=== PATIENT | male | born 1965 | race Caucasian/White ===

== ENCOUNTER 2022-10-17 05:42 | Observation (INO) | payer OTHER ==
--- OUTSIDE RECORDS SUMMARY | 2022-10-17 05:48 | XMS REPORT | Continuity of Care Document ---
:1965 Author Organization [facility] t Address [address] [place] [address] Care Team Providers Name Role Phone Joe Calloway Attending Clinician Unavailable ANASTACIO HAYES Attending Clinician Unavailable Shoaib Austin Attending Clinician Unavailable Emilio Durán Attending Clinician Shoaib Austin Admitting Clinician Unavailable Physician, No Primary or Family Admitting Clinician [facility] Payers Payer Name Policy Type Policy Number Effective Date Expiration Date S ource Problems Condition Condition Condition Status Onset Resolution Last Treating Co mments Source Name Details Category Date Date Treatment Clinician Date DX: DX: Diagnosis Active 2019-07-21 Mem oria ORCHIALGIA ORCHIALGIA 07-16 07:33:00 l /KIDNEY /KIDNEY 00:00: Zane STONE STONE 00 Active 07/16/2019 [facility] ACUTE ACUTE Diagnosis Active 2017-112018-10-16 Mem oria CHEST PAIN CHEST PAIN 12-13 23:35:00 l Active 00:00: Zane 10/13/2018 00 [facility] CHEST PAIN CHEST Diagnosis Active 2017-112018-10-13 Memoria PAIN 12-13 05:00:00 l Active 00:00: Zane 10/13/2018 00 [facility] INTRACTABL INTRACTAB Diagnosis Active 2017-01-31 Memoria E BACK LE BACK 01-30 13:34:00 l PAIN PAIN 00:00: Zane Active 00 01/30/2017 [facility] LOWER BACK LOWER Diagnosis Active 2017-01-30 Memoria PAIN BACK PAIN 01-30 12:42:00 l Active 00:00: Zane 01/30/2017 00 [facility] INGUINAL INGUINAL Condition Active 2015-02-25 Memoria HERNIA, HERNIA, 02-04 09:35:09 l RIGHT RIGHT 00:00: [place] Active 00 02/04/2015 Condition 02/25/2015 [facility] 550.90 550.90 Diagnosis Active 2015-02-18 Me moria Active 02-04 14:43:00 l 02/04/2015 00:00: Abdulkadir carrasco [address] Morbid Morbid Problem 2019-05-03 Mervin leroy (severe) (severe) 13:54:32 l obesity obesity [place] due to due to excess excess calories calories 05/03/2019 [facility] Hyperlipid Problem 2019-05-03 M emoria kan, Hyperlipid 13:54:32 l unspecifie Abdulkadir omer d unspecifie d 05/03/2019 [facility] Alcohol Alcohol Problem 2019-05-03 In moria abuse, abuse, 13:54:32 l uncomplica uncomplica He dmitriy maico maico 05/03/2019 [facility] Nicotine Nicotine Problem 2019-05-03 Memoria dependence dependence 13:54:32 l , , Zane unspecifie unspecifie d, d, uncomplica uncomplica maico maico 05/03/2019 [facility] Sleep Sleep Problem 2019-05-03 Mervin leroy apnea, apnea, 13:54:32 l unspecifie unspecifie He dmitriy d d 05/03/2019 [facility] Other Other Problem 2019-05-03 Memor ia chronic chronic 13:54:32 l pain pain Zane 05/03/2019 [facility] Essential Essential Problem 2019-05-03 Memoria (primary) (primary) 13:54:32 l hypertensi hypertensi He rasheedaann on on 05/03/2019 [facility] Unspecifie Unspecifi Problem 2019-05-03 Memoria d asthma, ed asthma, 13:54:32 l uncomplica uncomplica He dmitriy maico maico 05/03/2019 [facility] Gastro-eso Gastro-es Problem 2019-05-03 Memoria phageal ophageal 13:54:32 l reflux reflux Zane disease disease without without esophagiti esophagiti s s 05/03/2019 [facility] Diverticul Diverticu Problem 2019-05-03 Memoria osis of losis of 13:54:32 l intestine, intestine, He rmann part part unspecifie unspecifie d, without d, without perforatio perforatio n or n or abscess abscess without without bleeding bleeding 05/03/2019 [facility] Diverticul Diverticu Problem Resolve 2019-08-02 Memoria itis litis d 21:20:55 l (disorder) (disorder) He rmann Resolved Problem 08/02/2019 [facility] Gastroesop Gastroeso Problem Resolve 2019-08-02 Memoria hageal phageal d 21:20:55 l reflux reflux Zane disease disease (disorder) (disorder) Resolved Problem 08/02/2019 [facility] Asthma Asthma Problem Resolve 2019-08-02 Mem oria (disorder) (disorder) d 21:20:55 l Resolved [place] Problem 08/02/2019 [facility] Hypertensi Problem Resolve 2019-08-02 Memoria ve Hypertensi d 21:20:55 l disorder, ve [place] systemic disorder, arterial systemic (disorder) arterial (disorder) Resolved Problem 08/02/2019 [facility] Sleep Sleep Problem Resolve 2019-08-02 Mervin leroy apnea apnea d 21:20:55 l (finding) (finding) Herm marlon Resolved Problem 08/02/2019 [facility] Seasonal Seasonal Problem Active 2019-08-02 Memoria allergic allergic 21:20:55 l rhinitis rhinitis Abdulkadir n (disorder) (disorder) Active Problem 08/02/2019 [facility] DORSALGIA, DORSALGIA Diagnosis Active 2017-01-31 Memoria UNSPECIFIE , 13:34:00 l D UNSPECIFIE Abdulkadir n D Active [facility] CHEST CHEST Diagnosis Active 2018-10-16 Mem oria PAIN, PAIN, 23:35:00 l UNSPECIFIE UNSPECIFIE He rmann D D Active [facility] History of Past Illness Condition Condition Condition Status Onset Resolution Last Treating Co mments Source Name Details Category Date Date Treatment Clinician Date Unstable Unstable Problem 2017-2019-05-03 2019-05-03 Memoria angina angina 2-13 13:54:32 13:54:32 l 10/30/2018 04:10: Abdulkadir carrasco 34 [address] [facility] Allergies, Adverse Reactions, Alerts Allergy Allergy Status Severity Reaction(s) Onset Inactive Treating Comm ents Source Name Type Date Date Clinician No Known DA Active U 2019-11 [facility] [place] [facility] No Known DA Active U 2019-11 [facility] [place] [facility] No Known DA Active U 2007- [facility] 2-18 [place] Allergie 00:00: [facility]ope [facility] No Known DA Active U 2001- [facility] 2-05 [place] [facility] 00:00: [facility]ope [facility]ces [facility] Social History Social Habit Start Date Stop Date Quantity Comments Source Social History 2015-02-11 2015-02-11 [facility] Juan Diego shamika 20:13:45 20:13:45 Medications Ordered Filled Start Stop Current Ordering Indication Dosage Frequency Signature Comments Components Source Medication Medication Date Date Medication? Clinician (SIG) Name Name Acetaminoph No 1 - 2 tab, Memoria en 300 MG / 9-11 PO, Q4H, l Codeine 01:07: PRN Pain, Johanna nn Phosphate 00 X 4 day, # 30 MG Oral 36 tab, 0 Tablet Refill(s), [Tylenol other with Codeine #3] Acetaminoph No 1 - 2 tab, Memoria en 300 MG / 9-11 PO, Q4H, l Codeine 01:07: PRN Pain, Johanna nn Phosphate 00 X 4 day, # 30 MG Oral 36 tab, 0 Tablet Refill(s), [Tylenol other with Codeine #3] Levofloxaci Yes 500 mg = 1 Memoria n 500 MG 9-04 tab, PO, l Oral Tablet 20:49: Q24H, X 21 [place] [Levaquin] 00 day, # 21 tab, 0 Refill(s), Pharmacy: [facility] #[id number] Tamsulosin Yes 0.4 mg = 1 M emoria hydrochlori 9-04 cap, PO, l de 0.4 MG 20:49: Daily, # Herm marlon Oral 00 30 cap, 6 Capsule Refill(s), [Flomax] Pharmacy: [facility] #[id number] Sulfamethox 2019-0 Yes 80 mg =, Me moria azole 800 9-04 PO, Q12H, l MG / 20:49: # 42 tab, [place] Trimethopri 00 0 m 160 MG Refill(s), Oral Tablet Pharmacy: [facility] #[id number] Levofloxaci 2019-0 Yes 500 mg = 1 Memoria n 500 MG 9-04 tab, PO, l Oral Tablet 20:49: Q24H, X 21 Zane [Levaquin] 00 day, # 21 tab, 0 Refill(s), Pharmacy: [facility] #[id number] Tamsulosin 2019-0 Yes 0.4 mg = 1 M emoria hydrochlori 9-04 cap, PO, l de 0.4 MG 20:49: Daily, # Herm marlon Oral 00 30 cap, 6 Capsule Refill(s), [Flomax] Pharmacy: [facility] #[id number] Sulfamethox 2019-0 Yes 80 mg =, Me moria azole 800 9-04 PO, Q12H, l MG / 20:49: # 42 tab, [place] Trimethopri 00 0 m 160 MG Refill(s), Oral Tablet Pharmacy: [facility] #[id number] Rocephin 2019-0 No 1,000 mg, Mervin leroy 07-10 Route: IM, l 18:33: ONCE, Dosing Weight 135.909, kg, Start date: 07/10/19 13:33:00 CDT, Stop date: 07/10/19 13:33:00 CDT Ketorolac 2019-0 No 60 mg, Memori a 07-10 Route: IM, l 18:33: Drug form: [place] 00 INJ, ONCE, Dosing Weight 135.909, kg, Start date: 07/10/19 13:33:00 CDT, Stop date: 07/10/19 13:33:00 CDT Rocephin 2019-0 No 1,000 mg, Mervin leroy 07-10 Route: IM, l 18:33: ONCE, Dosing Weight 135.909, kg, Start date: 07/10/19 13:33:00 CDT, Stop date: 07/10/19 13:33:00 CDT Ketorolac 2019-0 No 60 mg, Memori a 8-23 Route: IM, l 18:33: Drug form: [place] 00 INJ, ONCE, Dosing Weight 135.909, kg, Start date: 07/10/19 13:33:00 CDT, Stop date: 07/10/19 13:33:00 CDT cefdinir 2019-0 Yes 300 mg = 1 Mem oria 300 MG Oral 8-23 cap, PO, l Capsule 17:39: Q12H, X 21 Herm marlon [Omnicef] 00 day, # 42 cap, 0 Refill(s), Pharmacy: [facility] #[id number] cefdinir 2019-0 Yes 300 mg = 1 Mem oria 300 MG Oral 8-23 cap, PO, l Capsule 17:39: Q12H, X 21 Herm marlon [Omnicef] 00 day, # 42 cap, 0 Refill(s), Pharmacy: [facility] #[id number] Saline 2017-11 No Notes: Memoria Flush 0.9% 1-28 (Same as: l 03:00: BD [place] 00 Posiflush) Saline 2017-11 No Notes: Memoria Flush 0.9% 1-28 (Same as: l 03:00: BD [place] 00 Posiflush) Saline 2017-11 No Notes: Memoria Flush 0.9% -27 (Same as: l 21:02: BD [place] 00 Posiflush) Ondansetron 2017-11 No Notes: Mervin leroy - (Same as: l 21:02: Zofran) MEDICATION WASTE Product Size: 4 mg Product Wasted: ___ mg acetaminoph 2017-11 No Notes: Do M emoria en-codeine - not exceed l #3 21:02: 4gm/day of Zane 00 acetaminop hen. (Same as: Tylenol with Codeine # 3) Sodium 2017-11 No 750 mL, Memoria Chloride 12-14 Rate: 75 l 0.9% IV 750 21:02: ml/hr, Herm marlon mL 00 Infuse over: 10 hr, Route: IV, Dosing Weight 135.909 kg, Total Volume: 750, Start date: 10/14/18 15:02:00 TOOLING ENGINEER, Duration: 10 hr, Stop date: 10/15/18 1:01:00 TOOLING ENGINEER, 2.59, m2 Saline 2017-11 No Notes: Memoria Flush 0.9% 12-14 (Same as: l 21:02: BD Posiflush) Ondansetron 2017-11 No Notes: Mervin leroy 12-14 (Same as: l 21:02: Zofran) MEDICATION WASTE Product Size: 4 mg Product Wasted: ___ mg acetaminoph 2017-11 No Notes: Do M emoria en-codeine 12-14 not exceed l #3 21:02: 4gm/day of acetaminop hen. (Same as: Tylenol with Codeine # 3) Sodium 2017-11 No 750 mL, Memoria Chloride 12-14 Rate: 75 l 0.9% IV 750 21:02: ml/hr, Infuse over: 10 hr, Route: IV, Dosing Weight 135.909 kg, Total Volume: 750, Start date: 10/14/18 15:02:00 TOOLING ENGINEER, Duration: 10 hr, Stop date: 10/15/18 1:01:00 TOOLING ENGINEER, 2.59, m2 Benicar 2017-11 No 20 mg, 1 Memori a 12-14 tab, l 15:00: Route: PO, Drug form: TAB, Daily, Start date: 10/14/18 9:00:00 TOOLING ENGINEER, Duration: 30 day, Stop date: 11/12/18 9:00:00 TOOLING ENGINEER amLODIPine 2017-11 No Notes: Memor ia 12-14 (Same as: l 15:00: Norvasc) Prilosec 2017-11 No 40 mg, Memoria 12-14 Route: PO, l 15:00: Daily, Dosing Weight 135.909, kg, Start date: 10/14/18 9:00:00 TOOLING ENGINEER, Duration: 30 day, Stop date: 11/12/18 9:00:00 TOOLING ENGINEER Aspirin 81 2017-11 No Notes: Memor ia MG Chewable 12-14 Take with l Tablet 15:00: food. Amlodipine 2017-11 No 1 tab, Memor ia 10 MG / 12-14 Route: PO, l Olmesartan 15:00: Drug Form: H ermann medoxomil 00 TAB, 20 MG Oral Dosing Tablet Weight [George 135.909, 10/20] kg, Daily, Start date: 10/14/18 9:00:00 TOOLING ENGINEER, Duration: 30 day, Stop date: 11/12/18 9:00:00 TOOLING ENGINEER Benicar 2017-11 No 20 mg, 1 Memori a - tab, l 15:00: Route: PO, Drug form: TAB, Daily, Start date: 10/14/18 9:00:00 TOOLING ENGINEER, Duration: 30 day, Stop date: 11/12/18 9:00:00 TOOLING ENGINEER amLODIPine 2017-11 No Notes: Memor ia 12-14 (Same as: l 15:00: Norvasc) Prilosec 2017-11 No 40 mg, Memoria 12-14 Route: PO, l 15:00: Daily, Dosing Weight 135.909, kg, Start date: 10/14/18 9:00:00 TOOLING ENGINEER, Duration: 30 day, Stop date: 11/12/18 9:00:00 TOOLING ENGINEER Aspirin 81 2017-11 No Notes: Memor ia MG Chewable 12-14 Take with l Tablet 15:00: food. Amlodipine 2017-11 No 1 tab, Memor ia 10 MG / 12-14 Route: PO, l Olmesartan 15:00: Drug Form: H ermann medoxomil 00 TAB, 20 MG Oral Dosing Tablet Weight [George 135.909, 10/20] kg, Daily, Start date: 10/14/18 9:00:00 TOOLING ENGINEER, Duration: 30 day, Stop date: 11/12/18 9:00:00 TOOLING ENGINEER Zyrtec 2017-11 No Notes: Memoria - (Same As: l 05:26: Zyrtec) Zyrtec 2017-11 No Notes: Memoria - (Same As: l 05:26: Zyrtec) Zyrtec 2017-11 Yes 10 mg, Memoria 1-27 Daily, 0 l 04:54: Refill(s) Zyrtec 2017-11 Yes 10 mg, Memoria 1-27 Daily, 0 l 04:54: Refill(s) Zane 00 Protonix 2017-11 No Notes: Memoria 1-26 Tablet l 20:00: should not [place] 00 be chewed or crushed. (Same as: Protonix) Protonix 2017-11 No Notes: Memoria 1-26 Tablet l 20:00: should not Z[place] 00 be chewed or crushed. (Same as: Protonix) Aspirin 81 2017-11 No Notes: Do Me moria MG Enteric - not crush l Coated 15:59: or chew. Zane Tablet 00 (Same As: Ecotrin) Aspirin 81 2017-11 No Notes: Do Me moria MG Enteric - not crush l Coated 15:59: or chew. Zane Tablet 00 (Same As: Ecotrin) Folic Acid 2017-11 No Notes: Memor ia 12-13 (Same as: l 15:00: Folvite) Zane 00 Thiamine 2017-11 No Notes: Memoria - (Same As: l 15:00: Vitamin [place] 00 B1) multivitami 2017-11 No Notes: Mervin leroy n - (Same l 15:00: as:One Tab Zane 00 Daily, Tab-A-Amy + Beta Carotene) Give with food. Saline 2017-11 No Notes: Memoria Flush 0.9% 12-13 (Same as: l 15:00: BD Z[place] 00 Posiflush) Folic Acid 2017-11 No Notes: Memor ia 12-13 (Same as: l 15:00: Folvite) [place] 00 Thiamine 2017-11 No Notes: Memoria - (Same As: l 15:00: Vitamin [place] 00 B1) multivitami 2017-11 No Notes: Mervin leroy n 12-13 (Same l 15:00: as:One Tab Z[place] 00 Daily, Tab-A-Amy + Beta Carotene) Give with food. Saline 2017-11 No Notes: Memoria Flush 0.9% 12-13 (Same as: l 15:00: BD [place] 00 Posiflush) Albuterol 2017-11 No Notes: SEE Me moria 0.83 MG/ML 12-13 RT l Inhalant 10:55: DOCUMENTAT Her castillo Solution 00 ION (Same as: Proventil) Albuterol 2017-11 No Notes: SEE Me moria 0.83 MG/ML 12-13 RT l Inhalant 10:55: DOCUMENTAT Her castillo Solution 00 ION (Same as: Proventil) Lovenox 2017-11 No Notes: Memoria 12-13 (Same as: l 10:19: Lovenox) [place] Saline 2017-11 No Notes: Memoria Flush 0.9% 12-13 (Same as: l 10:19: BD [place] 00 Posiflush) Morphine 2017-11 No Notes: Memoria 12-13 (Same l 10:19: as:MORPhin [place] 00 e Sulfate) Nitroglycer 2017-11 No Notes: Mervin leroy in 12-13 (Same l 10:19: as:Nitroqu [place] 00 ick, Nitrostat) "Do Not Crush" Sublingual tablet Acetaminoph 2017-11 No Notes: Do M emoria en 12-13 not exceed l 10:19: 4 gm/day. Zane 00 (Same as: Tylenol) Ondansetron 2017-11 No Notes: Mervin leroy 12-13 (Same as: l 10:19: Zofran) Zane 00 Lovenox 2017-11 No Notes: Memoria 12-13 (Same as: l 10:19: Lovenox) Zane Saline 2017-11 No Notes: Memoria Flush 0.9% 12-13 (Same as: l 10:19: BD [place] 00 Posiflush) Morphine 2017-11 No Notes: Memoria 12-13 (Same l 10:19: as:MORPhin [place] 00 e Sulfate) Nitroglycer 2017-11 No Notes: Mervin leroy in 12-13 (Same l 10:19: as:Nitroqu [place]ane 00 ick, Nitrostat) "Do Not Crush" Sublingual tablet Acetaminoph 2017-11 No Notes: Do M emoria en 12-13 not exceed l 10:19: 4 gm/day. Zane 00 (Same as: Tylenol) Ondansetron 2017-11 No Notes: Mervin leroy 12-13 (Same as: l 10:19: Zofran) [place] Aspirin 2017-11 No Notes: (Do Mervin leroy 12-13 Not Crush) l 08:40: Do not [place] 00 crush or chew. Aspirin 2017-11 No Notes: (Do Mervin leroy 1-26 Not Crush) l 08:40: Do not [place] 00 crush or chew. Saline 2017-11 No Notes: Memoria Flush 0.9% 1-26 (Same as: l 07:56: BD [place] 00 Posiflush) Saline 2017-11 No Notes: Memoria Flush 0.9% 1-26 (Same as: l 07:56: BD [place] 00 Posiflush) Benicar No 20 mg, 1 Memori a 3-16 tab, l 14:00: Route: PO, Zane 00 Drug form: TAB, Daily, Start date: 01/31/17 9:00:00 CDT, Duration: 30 day, Stop date: 03/01/17 9:00:00 CDT Aspirin 81 0 No Notes: Memor ia MG Chewable 3-16 Take with l Tablet 14:00: food. Amlodipine No 1 tab, Memor ia 5 MG / 3-16 Route: PO, l Olmesartan 14:00: Drug Form: H ermann medoxomil 00 TAB, 20 MG Oral Dosing Tablet Weight [George 5/20] 137.074, kg, Daily, Start date: 01/31/17 9:00:00 CDT, Duration: 30 day, Stop date: 03/01/17 9:00:00 CDT amLODIPine 0 No Notes: Memor ia 3-16 (Same as: l 14:00: Norvasc) Benicar No 20 mg, 1 Memori a 3-16 tab, l 14:00: Route: PO, Drug form: TAB, Daily, Start date: 01/31/17 9:00:00 CDT, Duration: 30 day, Stop date: 03/01/17 9:00:00 CDT Aspirin 81 0 No Notes: Memor ia MG Chewable 3-16 Take with l Tablet 14:00: food. Amlodipine No 1 tab, Memor ia 5 MG / 3-16 Route: PO, l Olmesartan 14:00: Drug Form: H ermann medoxomil 00 TAB, 20 MG Oral Dosing Tablet Weight [George 5/20] 137.074, kg, Daily, Start date: 01/31/17 9:00:00 CDT, Duration: 30 day, Stop date: 03/01/17 9:00:00 CDT amLODIPine 2017-0 No Notes: Memor ia 3-16 (Same as: l 14:00: Norvasc) Zane 00 naproxen 2016-0 Yes 500 mg = 1 Mem oria 500 mg oral 3-16 tab, PO, l tablet 13:33: BID, PRN [place] 00 Pain, # 30 tab, 0 Refill(s) Cyclobenzap 2017-0 Yes 10 mg, PO, Memoria rine 3-16 TID, PRN l hydrochlori 13:33: Muscle Herm marlon de 10 MG 00 Spasm, X Oral Tablet 10 day, # [Flexeril] 30 tab, 0 Refill(s) naproxen Yes 500 mg = 1 Mem oria 500 mg oral 3-16 tab, PO, l tablet 13:33: BID, PRN [place] 00 Pain, # 30 tab, 0 Refill(s) Cyclobenzap 2017-0 Yes 10 mg, PO, Memoria rine 3-16 TID, PRN l hydrochlori 13:33: Muscle Herm marlon de 10 MG 00 Spasm, X Oral Tablet 10 day, # [Flexeril] 30 tab, 0 Refill(s) Aspirin 81 20170 Yes 81 mg = 1 Me moria MG Chewable 3-16 tab, PO, l Tablet 11:30: Daily, Zane 00 tab, 0 Refill(s) Amlodipine 2017-0 Yes 1 tab, PO, M emoria 5 MG / 3-16 Daily, # l Olmesartan 11:30: 30 tab, 0 He rmann medoxomil 00 Refill(s) 20 MG Oral Tablet [George 5/20] Aspirin 81 [id number] Yes 81 mg = 1 Me moria MG Chewable 3-16 tab, PO, l Tablet 11:30: Daily, Zane 00 tab, 0 Refill(s) Amlodipine 2017-0 Yes 1 tab, PO, M emoria 5 MG / 3-16 Daily, # l Olmesartan 11:30: 30 tab, 0 He rmann medoxomil 00 Refill(s) 20 MG Oral Tablet [George 5/20] Morphine 2017-0 No Notes: Memoria 3-15 (Same l 19:46: as:MORPhin [place] 00 e Sulfate) Morphine 2016-0 No Notes: Memoria 3-15 (Same l 19:46: as:MORPhin [place] 00 e Sulfate) Ketorolac 2017-0 No 30 mg, Memori a 3-15 Route: IM, l 16:18: Drug form: [place] 00 INJ, ONCE, kg, Priority: STAT, Start date: 01/30/17 11:18:00 CDT, Stop date: 01/30/17 11:18:00 CDT Valium 2017-0 No 10 mg, Memoria 3-15 Route: PO, l 16:18: ONCE, kg, [place] 00 Priority: STAT, Start date: 01/30/17 11:18:00 CDT, Stop date: 01/30/17 11:18:00 CDT Acetaminoph 2016-0 No 1 tab, Mervin leroy en 325 MG / 15 Route: PO, l Hydrocodone 16:18: Drug Form: Zane Bitartrate 00 TAB, kg, 5 MG Oral ONCE, Tablet STAT, Start date: 01/30/17 11:18:00 CDT, Stop date: 01/30/17 11:18:00 CDT Ketorolac 2017-0 No 30 mg, Memori a 3-15 Route: IM, l 16:18: Drug form: [place] 00 INJ, ONCE, kg, Priority: STAT, Start date: 01/30/17 11:18:00 CDT, Stop date: 01/30/17 11:18:00 CDT Valium 2016-0 No 10 mg, Memoria 3-15 Route: PO, l 16:18: ONCE, kg, [place] 00 Priority: STAT, Start date: 01/30/17 11:18:00 CDT, Stop date: 01/30/17 11:18:00 CDT Acetaminoph 2016-0 No 1 tab, Mervin leroy en 325 MG / 01-30 Route: PO, l Hydrocodone 16:18: Drug Form: [place] Bitartrate 00 TAB, kg, 5 MG Oral ONCE, Tablet STAT, Start date: 01/30/17 11:18:00 CDT, Stop date: 01/30/17 11:18:00 CDT Oxycodone 2014-0 No 10 mg, Memori a Hydrochlori 02-16 Route: PO, l de 5 MG 22:54: Drug form: Herm marlon Oral Tablet 00 TAB, ONCE, Dosing Weight 134.091, kg, PRN Pain Score 7-10, Start date: 02/16/15 17:54:00 Oxycodone 2014-0 No 10 mg, Memori a Hydrochlori 02-16 Route: PO, l de 5 MG 22:54: Drug form: Herm marlon Oral Tablet 00 TAB, ONCE, Dosing Weight 134.091, kg, PRN Pain Score 7-10, Start date: 02/16/15 17:54:00 Oxycodone 2014-0 No 10 mg, Memori a Hydrochlori 02-16 Route: PO, l de 5 MG 22:54: Drug form: Herm marlon Oral Tablet 00 TAB, ONCE, Dosing Weight 134.091, kg, PRN Pain Score 7-10, Start date: 02/16/15 17:54:00 Docusate Yes 100 mg = 1 Mem oria Sodium 100 4-01 cap, PO, l MG Oral 22:29: BID, PRN Abdulkadir n Capsule 00 Constipati [Colace] on, # 20 cap, 0 Refill(s) Acetaminoph Yes 1 tab, PO, Memoria en 300 MG / 4-01 Q6H, PRN l Codeine 22:29: for pain, Johanna nn Phosphate 00 # 30 tab, 30 MG Oral 0 Tablet Refill(s) [Tylenol with Codeine #3] Docusate Yes 100 mg = 1 Mem oria Sodium 100 4-01 cap, PO, l MG Oral 22:29: BID, PRN Abdulkdair n Capsule 00 Constipati [Colace] on, # 20 cap, 0 Refill(s) Acetaminoph Yes 1 tab, PO, Memoria en 300 MG / 4-01 Q6H, PRN l Codeine 22:29: for pain, Johanna nn Phosphate 00 # 30 tab, 30 MG Oral 0 Tablet Refill(s) [Tylenol with Codeine #3] Docusate Yes 100 mg = 1 Mem oria Sodium 100 4-01 cap, PO, l MG Oral 22:29: BID, PRN Abdulkadir n Capsule 00 Constipati [Colace] on, # 20 cap, 0 Refill(s) Acetaminoph Yes 1 tab, PO, Memoria en 300 MG / 02-16 Q6H, PRN l Codeine 22:29: for pain, Johanna nn 00 # 30 tab, 30 MG Oral 0 Tablet Refill(s) [Tylenol with Codeine #3] Phenergan No Notes: Do Mem oria 02-16 not give l 22:05: IV push. [place] (Same as: Phenergan) Phenergan No Notes: Do Mem oria 02-16 not give l 22:05: IV push. [place] (Same as: Phenergan) Phenergan No Notes: Do Mem oria 02-16 not give l 22:05: IV push. Zane (Same as: Phenergan) Hydromorpho No 0.5 mg, Mem oria ne 02-16 Route: l 21:40: IVP, [place] 00 Q5Min, Dosing Weight 134.091, kg, PRN Pain Score 7-10, Start date: 02/16/15 16:40:00, Duration: 4 doses or times, Stop date: Limited # of times Fentanyl No 25 Memoria 02-16 microgram, l 21:40: Route: Zane 00 IVP, Q5Min, Dosing Weight 134.091, kg, PRN Pain Score 4-6, Start date: 02/16/15 16:40:00, Duration: 4 doses or times, Stop date: Limited # of times Labetalol No 10 mg, Memori a 02-16 Route: l 21:40: IVP, [place] 00 Q5Min, Dosing Weight 134.091, kg, PRN Elevated BP, Start date: 02/16/15 16:40:00, Duration: 5 doses or times, Stop date: Limited # of times Hydralazine No 10 mg, Mervin leroy 02-16 Route: l 21:40: IVP, Z[place] 00 Q20Min, Dosing Weight 134.091, kg, PRN Elevated BP, Start date: 02/16/15 16:40:00, Duration: 2 doses or times, Stop date: Limited # of times Ondansetron 2015-0 No 4 mg, Memor ia 02-16 Route: l 21:40: IVP, ONCE, [place] 00 Dosing Weight 134.091, kg, PRN Nausea & Vomiting, Start date: 02/16/15 16:40:00 Naloxone 2014-0 No 0.04 mg, Memor ia 02-16 Route: l 21:40: IVP, [place] 00 Q2MIN, Dosing Weight 134.091, kg, PRN Narcotic Reversal, Start date: 02/16/15 16:40:00, Duration: 8 doses or times, Stop date: Limited # of times Flumazenil 2014-0 No 0.2 mg, Mervin leroy 02-16 Route: l 21:40: IVP, PRN, [place] 00 Dosing Weight 134.091, kg, PRN Benzodiaze pine Reversal, Initial dose, Start date: 02/16/15 16:40:00, Duration: 30 day, Stop date: 03/18/15 16:39:00 Hydromorpho 2014-0 No 0.5 mg, Mem oria ne 02-16 Route: l 21:40: IVP, [place] 00 Q5Min, Dosing Weight 134.091, kg, PRN Pain Score 7-10, Start date: 02/16/15 16:40:00, Duration: 4 doses or times, Stop date: Limited # of times Fentanyl 2014-0 No 25 Memoria 4-01 microgram, l 21:40: Route: Zane 00 IVP, Q5Min, Dosing Weight 134.091, kg, PRN Pain Score 4-6, Start date: 02/16/15 16:40:00, Duration: 4 doses or times, Stop date: Limited # of times Labetalol 2014-0 No 10 mg, Memori a 02-16 Route: l 21:40: IVP, Zane 00 Q5Min, Dosing Weight 134.091, kg, PRN Elevated BP, Start date: 02/16/15 16:40:00, Duration: 5 doses or times, Stop date: Limited # of times Hydralazine 2014-0 No 10 mg, Mervin leroy 02-16 Route: l 21:40: IVP, [place] 00 Q20Min, Dosing Weight 134.091, kg, PRN Elevated BP, Start date: 02/16/15 16:40:00, Duration: 2 doses or times, Stop date: Limited # of times Ondansetron 2015-0 No 4 mg, Memor ia 02-16 Route: l 21:40: IVP, ONCE, [place] 00 Dosing Weight 134.091, kg, PRN Nausea & Vomiting, Start date: 02/16/15 16:40:00 Naloxone 2015-0 No 0.04 mg, Memor ia 02-16 Route: l 21:40: IVP, [place] 00 Q2MIN, Dosing Weight 134.091, kg, PRN Narcotic Reversal, Start date: 02/16/15 16:40:00, Duration: 8 doses or times, Stop date: Limited # of times Flumazenil 2014-0 No 0.2 mg, Mervin leroy 02-16 Route: l 21:40: IVP, PRN, [place] 00 Dosing Weight 134.091, kg, PRN Benzodiaze pine Reversal, Initial dose, Start date: 02/16/15 16:40:00, Duration: 30 day, Stop date: 03/18/15 16:39:00 Hydromorpho 2014-0 No 0.5 mg, Mem oria ne 02-16 Route: l 21:40: IVP, [place] 00 Q5Min, Dosing Weight 134.091, kg, PRN Pain Score 7-10, Start date: 02/16/15 16:40:00, Duration: 4 doses or times, Stop date: Limited # of times Fentanyl 2014-0 No 25 Memoria 4-01 microgram, l 21:40: Route: [place] 00 IVP, Q5Min, Dosing Weight 134.091, kg, PRN Pain Score 4-6, Start date: 02/16/15 16:40:00, Duration: 4 doses or times, Stop date: Limited # of times Labetalol 2015-0 No 10 mg, Memori a - Route: l 21:40: IVP, Zane 00 Q5Min, Dosing Weight 134.091, kg, PRN Elevated BP, Start date: 02/16/15 16:40:00, Duration: 5 doses or times, Stop date: Limited # of times Hydralazine 2014-0 No 10 mg, Mervin leroy 02-16 Route: l 21:40: IVP, Zane 00 Q20Min, Dosing Weight 134.091, kg, PRN Elevated BP, Start date: 02/16/15 16:40:00, Duration: 2 doses or times, Stop date: Limited # of times Ondansetron No 4 mg, Memor ia 02-16 Route: l 21:40: IVP, ONCE, Zane 00 Dosing Weight 134.091, kg, PRN Nausea & Vomiting, Start date: 02/16/15 16:40:00 Naloxone No 0.04 mg, Memor ia 02-16 Route: l 21:40: IVP, [place] 00 Q2MIN, Dosing Weight 134.091, kg, PRN Narcotic Reversal, Start date: 02/16/15 16:40:00, Duration: 8 doses or times, Stop date: Limited # of times Flumazenil No 0.2 mg, Mervin leroy 02-16 Route: l 21:40: IVP, PRN, [place] Dosing Weight 134.091, kg, PRN Benzodiaze pine Reversal, Initial dose, Start date: 02/16/15 16:40:00, Duration: 30 day, Stop date: 03/18/15 16:39:00 Exparel No Notes: Memoria 02-16 (Same as: l 18:00: Exparel) NOT FOR IV use Postoperat jael analgesia: Infiltrati on (local): Dose is based on surgical site and volume required to cover the area (in general, the maximum total dose is 266 mg). Bunionecto my: 7 mL into the tissues surroundin g the osteotomy and 1 mL into the subcutaneo us tissue of the surgical site (total dose = 8 mL [106 mg]) Hemorrhoid ectomy: 30 mL (20 mL vial diluted with 10 mL NS) divided and administer ed as 6 injections of 5 mL each (total dose = 30 mL [266 mg]) Exparel No Notes: Memoria 02-16 (Same as: l 18:00: Exparel) NOT FOR IV use Postoperat jael analgesia: Infiltrati on (local): Dose is based on surgical site and volume required to cover the area (in general, the maximum total dose is 266 mg). Bunionecto my: 7 mL into the tissues surroundin g the osteotomy and 1 mL into the subcutaneo us tissue of the surgical site (total dose = 8 mL [106 mg]) Hemorrhoid ectomy: 30 mL (20 mL vial diluted with 10 mL NS) divided and administer ed as 6 injections of 5 mL each (total dose = 30 mL [266 mg]) Exparel No Notes: Memoria 02-16 (Same as: l 18:00: Exparel) Zane 00 NOT FOR IV use Postoperat jael analgesia: Infiltrati on (local): Dose is based on surgical site and volume required to cover the area (in general, the maximum total dose is 266 mg). Bunionecto my: 7 mL into the tissues surroundin g the osteotomy and 1 mL into the subcutaneo us tissue of the surgical site (total dose = 8 mL [106 mg]) Hemorrhoid ectomy: 30 mL (20 mL vial diluted with 10 mL NS) divided and administer ed as 6 injections of 5 mL each (total dose = 30 mL [266 mg]) Calcium No 1,000 mL, Memor ia Chloride 02-16 Rate: 25 l 0.0014 16:10: ml/hr, [place] MEQ/ML / 00 Infuse Potassium over: 40 Chloride hr, Route: 0.004 IV, Dosing MEQ/ML / Weight Sodium 134.091 Chloride kg, Total 0.103 Volume: MEQ/ML / 1,000, Sodium Start Lactate date: 0.028 15 MEQ/ML 11:10:00, Injectable Duration: Solution 30 day, Stop date: 03/18/15 11:09:00 Calcium No 1,000 mL, Memor ia Chloride 02-16 Rate: 25 l 0.0014 16:10: ml/hr, [place] MEQ/ML / 00 Infuse Potassium over: 40 Chloride hr, Route: 0.004 IV, Dosing MEQ/ML / Weight Sodium 134.091 Chloride kg, Total 0.103 Volume: MEQ/ML / 1,000, Sodium Start Lactate date: 0.028 15 MEQ/ML 11:10:00, Injectable Duration: Solution 30 day, Stop date: 03/18/15 11:09:00 Calcium No 1,000 mL, Memor ia Chloride 4- Rate: 25 l 0.0014 16:10: ml/hr, [place] MEQ/ML / 00 Infuse Potassium over: 40 Chloride hr, Route: 0.004 IV, Dosing MEQ/ML / Weight Sodium 134.091 Chloride kg, Total 0.103 Volume: MEQ/ML / 1,000, Sodium Start Lactate date: 002/16/15 MEQ/ML 11:10:00, Injectable Duration: Solution 30 day, Stop date: 03/18/15 11:09:00 Aspirin 81 No 81 mg = 1 Me moria MG Enteric 3-27 tab, PO, l Coated 20:15: Daily, # 0 Johanna nn Tablet 00 tab, 0 Refill(s) Prilosec Yes 0 Memoria 3-27 Refill(s) l 20:15: Zane 00 Amlodipine Yes 1 tab, PO, M emoria 10 MG / 3-27 Daily, # l Olmesartan 20:15: 30 tab, 0 He rmann medoxomil 00 Refill(s) 20 MG Oral Tablet [George 09/06] Aspirin 81 No 81 mg = 1 Me moria MG Enteric 3-27 tab, PO, l Coated 20:15: Daily, # 0 Johanna nn Tablet 00 tab, 0 Refill(s) Prilosec Yes 0 Memoria 3-27 Refill(s) l 20:15: [place] 00 Amlodipine Yes 1 tab, PO, M emoria 10 MG / 3-27 Daily, # l Olmesartan 20:15: 30 tab, 0 He rmann medoxomil 00 Refill(s) 20 MG Oral Tablet [George 09/06] Aspirin 81 No 81 mg = 1 Me moria MG Enteric 3-27 tab, PO, l Coated 20:15: Daily, # 0 Johanna nn Tablet 00 tab, 0 Refill(s) Prilosec Yes 0 Memoria 3-27 Refill(s) l 20:15: [place] 00 Amlodipine Yes 1 tab, PO, M emoria 10 MG / 3-27 Daily, # l Olmesartan 20:15: 30 tab, 0 He rmann medoxomil 00 Refill(s) 20 MG Oral Tablet [George 10/20] Cefoxitin No Notes: Memori a 3-27 (Same As: l 20:00: Mefoxin) Cefoxitin No Notes: Memori a 3-27 (Same As: l 20:00: Mefoxin) Cefoxitin No Notes: Memori a 3-27 (Same As: l 20:00: Mefoxin) PROVENTIL Yes 2 puffs Memor ia HFA 108 (90 3-20 every 4-6 l BASE) 00:00: hours as Zane MCG/ACT 00 needed for AERS cough, wheezing, shortness of breath TRAMADOL Yes 1 tablet Memor ia HCL 50 MG 3-20 every 8 l TABS 00:00: hours as [place] 00 needed for pain ADVAIR Yes 1 puff Memoria DISKUS 3-20 twice l 250-50 00:00: daily Zane MCG/DOSE AEPB ZYRTEC Yes 1 capsule Memori a ALLERGY 10 3-20 daily as l MG CAPS 00:00: needed for Herm marlon 00 allergies NEXIUM 40 Yes 1 capsule Mem oria MG CPDR 3-20 daily l 00:00: GEORGE 5-40 Yes 1 tablet Mervin leroy MG TABS 3-20 daily l 00:00: PROVENTIL Yes 2 puffs Mem[facility] ia HFA 108 (90 3-20 every 4-6 l BASE) 00:00: hours as Zane MCG/ACT 00 needed for AERS cough, wheezing, shortness of breath TRAMADOL Yes 1 tablet Memor ia HCL 50 MG 3-20 every 8 l TABS 00:00: hours as [place] 00 needed for pain ADVAIR Yes 1 puff [facility]oria DISKUS 3-20 twice l 250-50 00:00: daily [place] MCG/DOSE 00 AEPB ZYRTEC Yes 1 capsule Memori a ALLERGY 10 3-20 daily as l MG CAPS 00:00: needed for Herm marlon 00 allergies NEXIUM 40 Yes 1 capsule Mem oria MG CPDR 3-20 daily l 00:00: Zane 00 GEORGE 5-40 2015-0 Yes 1 tablet Mervin leroy MG TABS 3-20 daily l 00:00: Zane 00 Immunizations Ordered Immunization Filled Immunization Date Status Commen ts Source Name Name Trey MERCADOIDUmu 2022-04-22 Completed Vaccine Vaccine 00:00:00 Trey MERCADOIDUmu Yang COVID-19 2021-07-05 Completed Vaccine Vaccine 00:00:00 Trey MERCADOIDUmu Yang COVID-19 2021-02-13 Completed Vaccine Vaccine 00:00:00 Trey MERCADOIDUmu Yang COVID-19 2021-01-16 Completed Vaccine Vaccine 00:00:00 Vital Signs Vital Name Observation Time Observation Value Comments Source Heart Rate 2018-10-14 21:27:00 [facility] [place] Temperature Oral (F) 2018-10-14 21:27:00 98.4 F [facility] [place] Systolic (mm Hg) 2018-10-14 21:27:00 Mervin rial [place] Diastolic (mm Hg) 2018-10-14 21:27:00 Mem o[facility] [place] Systolic (mm Hg) 2018-10-14 17:08:00 Mervin rial [place] Diastolic (mm Hg) 2018-10-14 17:08:00 Mem o[facility] Heart Rate 2018-10-14 17:08:00 [facility] [place] Temperature Oral (F) 2018-10-14 17:08:00 99.1 F [facility] Respitory Rate 2018-10-14 14:37:00 [facility] [place] Systolic (mm Hg) 2018-10-14 13:32:00 Mervin rial [place] Diastolic (mm Hg) 2018-10-14 13:32:00 [facility] [place] Heart Rate 2018-10-14 13:32:00 [facility] Temperature Oral (F) 2018-10-14 13:32:00 98.8 F [facility] Respitory Rate 2018-10-14 10:09:00 [facility] [place] Respitory Rate 2018-10-14 05:39:00 [facility] [place] BMI Calculated 2018-10-13 11:52:00 [facility] [place] Height 2018-10-13 11:52:00 172.72 cm [facility] Weight 2018-10-13 11:52:00 [facility] Weight 2018-10-13 07:53:00 [facility] [place] BMI Calculated 2018-10-13 07:53:00 [facility] [place] Height 2018-10-13 07:53:00 172.72 cm [facility] Heart Rate 2017-01-31 16:34:00 [facility] [place] Respitory Rate 2017-01-31 16:34:00 [facility] [place] Temperature Oral (F) 2017-01-31 16:34:00 98.3 F [facility] [place] Systolic (mm Hg) 2017-01-31 16:34:00 Mervin rial [place] Diastolic (mm Hg) 2017-01-31 16:34:00 [facility] [place] Temperature Oral (F) 2017-01-31 12:59:00 98.1 F [facility] [place] Heart Rate 2017-01-31 12:59:00 [facility] Respitory Rate 2017-01-31 12:59:00 [facility] [place] Systolic (mm Hg) 2017-01-31 12:59:00 Mervin rial Zane Diastolic (mm Hg) 2017-01-31 12:59:00 [facility] [place] Systolic (mm Hg) 2017-01-31 08:26:00 Mervin rial [place]ane Diastolic (mm Hg) 2017-01-31 08:26:00 [facility] [place] Temperature Oral (F) 2017-01-31 08:26:00 98.2 F [facility] [place] Heart Rate 2017-01-31 08:26:00 [facility] Respitory Rate 2017-01-31 08:26:00 [facility] [place] Weight 2017-01-31 02:07:00 [facility] [place] BMI Calculated 2017-01-31 02:07:00 [facility] [place] Height 2017-01-31 02:07:00 172.72 cm [facility] [place] Height 2017-01-30 16:17:00 172.72 cm [facility] [place] BMI Calculated 2017-01-30 16:17:00 [facility] Weight 2017-01-30 16:17:00 [facility] Height 2015-02-25 14:35:09 [facility] Weight 2015-02-25 14:35:09 [facility] Temperature Oral (F) 2015-02-25 14:35:09 99.2 F [facility] Heart Rate 2015-02-25 14:35:09 [facility] [place] Systolic (mm Hg) 2015-02-25 14:35:09 Mervin rial [place] Diastolic (mm Hg) 2015-02-25 14:35:09 [facility] [place] Systolic (mm Hg) 2015-02-17 00:45:00 Mervin rial [place] Diastolic (mm Hg) 2015-02-17 00:45:00 [facility] [place] Systolic (mm Hg) 2015-02-17 00:30:00 Mervin rial Zaen Diastolic (mm Hg) 2015-02-17 00:30:00 Mem o[facility] [place] Systolic (mm Hg) 2015-02-17 00:15:00 Mervin rial [place] Diastolic (mm Hg) 2015-02-17 00:15:00 Mem [facility] Respitory Rate 2015-02-16 22:45:00 [facility] [place] Respitory Rate 2015-02-16 22:30:00 [facility] [place] Respitory Rate 2015-02-16 22:15:00 [facility] Heart Rate 2015-02-11 20:11:00 [facility] Temperature Oral (F) 2015-02-11 20:11:00 98.8 F [facility] Weight 2015-02-11 19:37:00 [facility] Height 2015-02-11 19:37:00 172.72 cm [facility] [place] BMI Calculated 2015-02-11 19:37:00 [facility] [place] Height 2015-02-04 15:45:17 [facility] [place] Weight 2015-02-04 15:45:17 [facility] [place] Temperature Oral (F) 2015-02-04 15:45:17 98.6 F [facility] [place] Heart Rate 2015-02-04 15:45:17 [facility] [place] Systolic (mm Hg) 2015-02-04 15:45:17 Mervin rial [place] Diastolic (mm Hg) 2015-02-04 15:45:17 Mem orial [place] Procedures Procedure Date / Time Performed Performing Clinician Christine e Laminectomy and [facility] [place] discectomy Laparoscopic repair of [facility] hernia Operation [facility] Tendon repair by distal [facility] insertion Encounters Start End Encounter Admission Attending Care Care Encounter Source Date/Time Date/Time Type Type Clinicians Facility Department ID 2020-09-08 [id number] [facility] 14:30:00 Joe [facility] 2022-04-22 2022-04-22 Outpatient GCCOVIDV GCCOVIDV [id number] GCCOVID 00:00:00 00:00:00 V 2021-11-30 2021-11-30 Outpatient MHIE MHIE [id number] [facility] 08:40:00 08:40:00 07 josh Degroot 2021-11-24 2021-11-24 Outpatient MHIE MHIE [id number] [facility] 10:00:00 10:00:00 06 josh Degroot 2021-10-09 2021-10-09 Outpatient MHIE MHIE [id number] [facility] 11:00:00 11:00:00 05 josh Degroot 2021-10-09 2021-10-09 Outpatient MHIE MHIE [id number] [facility] 11:00:00 11:00:00 04 josh Degroot 2021-10-04 2021-10-04 Outpatient RICARDA HAYES URO [id number] MH 08:01:00 23:59:00 [facility] 2021-10-04 2021-10-04 Outpatient MHIE MHIE [id number] [facility] 11:30:00 11:30:00 03 josh Degroot 2021-09-25 2021-09-25 Outpatient MHIE MHIE [id number] [facility] 15:00:00 15:00:00 02 josh Degroot 2021-07-11 2021-07-11 Outpatient ROBIN Root RADI [id number] [facility] 09:48:00 09:48:00 Joe [facility] 2021-07-05 2021-07-05 Outpatient GCCOVIDV GCCOVIDV [id number] GCCOVID 00:00:00 00:00:00 V 2021-06-16 2021-06-16 Outpatient ROBIN Gutierrez PAIN [id number] [facility] 06:35:00 06:35:00 Shoaib Bardales [facility] 2021-02-13 2021-02-13 Outpatient GCCOVIDV GCCOVIDV [id number] GCCOVID 00:00:00 00:00:00 V 2021-01-16 2021-01-16 Outpatient GCCOVIDV GCCOVIDV [id number] GCCOVID 00:00:00 00:00:00 V 2020-11-16 2020-11-16 Outpatient Austin, ANTONIOTO PAIN [id number] [facility] 18:00:00 18:00:00 Shoaib 59 [facility] 2019-07-31 2019-07-31 Ambulatory nullFlavo [facility] [id number] Memoria 15:30:00 15:30:00 Pre-Reg r Urology 01 l [facility] 2019-07-31 2019-07-31 Outpatient MHIE MHIE [id number] [facility]oria 10:30:00 10:30:00 01 josh SandraZane 2019-07-21 2019-07-22 Outpatient nullFlavo [facility] [id number] [facility] 12:26:00 04:59:00 r Zane 05 l [facility] 2019-07-21 2019-07-21 Outpatient MHSE MED [id number] MH 07:26:00 07:26:00 [facility] 2019-07-10 2019-07-11 Outpatient nullFlavo [facility] [id number] Memoria 17:30:00 04:59:59 r Urology 00 l [facility] 2019-07-10 2019-07-10 Outpatient MHIE MHIE [id number] [facility]oria 12:30:00 12:30:00 00 josh Degroot 2018-10-13 2018-10-15 Inpatient nullFlavo [facility] [id number] Memoria 07:51:00 03:00:00 tony Degroot 03 l [facility] 2017-01-30 2017-01-31 Observatio nullFlavo [facility] [id number] [facility] 15:53:00 19:00:00 n tony Degroot 02 l [facility] 2015-02-25 2015-02-25 Office nullFlavo [facility] [id number] [facility]oria 00:00:00 00:00:00 Visit tony Degroot [id number] l [facility] General Surgery 350 2015-02-16 2015-02-17 OBS Day nullFlavo [facility] [id number] [facility] 16:56:00 00:50:00 Surgery r Zane 00 l [facility] 2015-02-16 2015-02-17 OBS Day nullFlavo [facility] [id number] Memoria 16:56:00 00:50:00 Surgery tony Degroot 00 l [facility] 2015-02-16 2015-02-16 Outpatient Emilio Durán [id number] 11:56:00 19:50:00 Rossy [id number] 2015-02-10 Lab Report [facility] [id number] Memoria 00:00:00 00:00:00 tony Degroot [id number] l [facility] Results Test Description Test Time Test Comments Results Result [facility] e Comments - MRI L-SPINE W/O 2021-06-19 CONT 4 11:25:[facility] 1965 Sex: M Patient Name: HAILEY LESTER Unit No: [id number] EXAMS: CPT CODE: [id number] MRI L-SPINE W/O CONT 01324 TECHNIQUE: Multiplanar, multisequence MRI examination performed of the lumbar spine without intravenous contrast material. COMPARISON: MR dated 09/08/2020 FINDINGS: Five lumbar type vertebra are assumed. Alignment: Within normal limits Bone Lesion: No suspicious osseous lesion. Fracture: None present. Paraspinal Soft Tissues: Unremarkable. Conus Medullaris: Termination at L1-L2 level. Morphology is normal. There is prominence of the epidural fat within the lumbar spine. L1/2: No significant abnormality. L2/3: Desiccation and minimal disc bulge or herniation. No foraminal or central canal stenosis. L3/4: Disc desiccation is present. A right asymmetric disc bulge is again noted contributing to moderate right foraminal stenosis. No significant left foraminal or central canal stenosis. L4/5: Disc desiccation and a minimal left asymmetric bulge. Mild bilateral facet hypertrophy. There is mild central canal stenosis as well as right lateral recess stenosis. Mild bilateral foraminal stenosis. L5/S1: A large disc bulge is present, with a superimposed central disc protrusion measuring 3 mm, increased from prior exam. Bilateral facet hypertrophy. There is mild central canal stenosis as well as moderate left, severe right foraminal stenosis. IMPRESSION: Progression in multilevel lumbar spondylosis with increase in the central disc protrusion at L5-S1, contributing to mild central canal stenosis. at 1125 Reported and signed by: Basil De La Rosa M.D. [facility] NAME: HAILEY LESTER [address] [facility] PHYS: Joe Desir MD : 1965 AGE: 56 SEX: M [place] [address] LOC: Y.MRI PHONE #: [phone] EXAM DATE: 07/11/2021 STATUS: REG CLI FAX #: [phone] RAD #: [id number] D/C DT PAGE 1 Signed Report (CONTINUED) Patient Name: HAILEY LESTER Unit No: [id number] EXAMS: CPT CODE: [id number] MRI L-SPINE W/O CONT 80287 (Continued) CC: Shoaib Austin MD; Austen Calloway M.D. Technologist: Araceli Prince, RT(R) Transcribed D/ (1125) t.KATER.[facility] NAME: HAILEY LESTER [address] [facility] PHYS: Joe Desir MD : 1965 AGE: 56 SEX: M [place] [address] LOC: Y.MRI PHONE #: [phone] EXAM DATE: 07/11/2021 STATUS: REG CLI FAX #: [phone] RAD #: [id number] D/C DT PAGE 2 Signed Report Patient Name: HAILEY LESTER Unit No: [id number] EXAMS: CPT CODE: [id number] MRI L-SPINE W/O CONT 40662 (Continued) Orig Print D/T: S: 07/11/2021 (1129) [facility] NAME: HAILEY LESTER [address] PHYS: Joe Desir MD : 1965 AGE: 56 SEX: M [place], [place] [address] LOC: Y.MRI PHONE #: [phone] EXAM DATE: 07/11/2021 STATUS: REG CLI FAX #: [phone] RAD #: [id number] D/C DT PAGE 3 Signed Report - XR FLUORO FOR 2021-05-20 SPINE INJ 0 20:19:00 [facility] 1965 Sex: M Patient Name: HAILEY LESTER Unit No: [id number] EXAMS: CPT CODE: [id number] XR FLUORO FOR SPINE INJ 84907 LUMBAR EPIRADICULAR INJECTION REFERRAL PHYSICIAN: Austen Calloway M.D. PREOPERATIVE DIAGNOSIS: Lumbar Radiculitis POSTOPERATIVE DIAGNOSIS: Lumbar spondylosis with bilateral lumbar radiculitis PROCEDURES PERFORMED: Fluoroscopically guided needle localization of the bilateral L4 and bilateral L5 spinal nerves with transforaminal epidurograms and epidural injection of local anesthetic and steroid. FINDINGS: Good flow seen through all foramen. Mild limitation of flow seen across the L4-5 discs. Provocation with injection was negative. Anesthetic response was positive with the patient noting relief of his low back and radiating lower extremity pains. Preinjection VAS 3/10. Postinjection VAS 0/10. Steroid response pending follow-up. ESTIMATED BLOOD LOSS: Minimal ANESTHESIA: TIVA COMPLICATIONS: None DETAILS OF PROCEDURE: After obtaining stable vital signs, informed consent and IV access, with no contraindications, the patient was taken to the operating room and placed in a prone position with all extremities padded and appropriate monitors placed. The patient was sterilely prepped and draped over the lumbosacral spine. Using fluoroscopic visualization the insertion sites were marked for paravertebral approaches and using standard technique, a 25 gauge needle was advanced to the base of each pedicle without paresthesias. Isovue-300 contrast 0.2 mL of was injected incrementally with frequent negative aspirations to produce each epidurogram. There were no signs of intravascular or intrathecal uptake. Bupivicaine 0.75% 0.25 mL with lidocaine 4% 0.5 mL and Decadron 5 mg was then incrementally injected with frequent negative aspirations and again there were no signs of intravascular or intrathecal uptake. The needles were removed and the patient was taken to the PACU in good condition. Image: Image 1 Image: Image 2 at 2019 Reported and signed by: Shoaib Austin M.D. CC: Technologist: Joy Freire(R) Transcribed D/ (2018) [facility] [place] NAME: HAILEY LESTER [address] [facility] PHYS: Shoaib Rodarte MD [place], [place] [address] : 1965 AGE: 56 SEX: M LOC: YHenriqueANGÉLICA PHONE #: [phone] EXAM DATE: 06/16/2021 STATUS: REG [facility] FAX #: [phone] RAD #: [id number] D/C DT PAGE 1 Signed Report Patient Name: HAILEY LESTER Unit No: [id number] EXAMS: CPT CODE: [id number] XR FLUORO FOR SPINE INJ 74934 (Continued) Orig Print D/T: S: 06/16/2021 (2021) [facility] NAME: HAILEY LESTER [address] [facility] PHYS: Shoaib Rodarte MD [place], [place] [address] : 1965 AGE: 56 SEX: M LOC: JomarANGÉLICA PHONE #: [phone] EXAM DATE: 06/16/2021 STATUS: REG [facility] FAX #: [phone] RAD #: [id number] D/C DT PAGE 2 Signed Report - XR FLUORO FOR 2020-10-20 SPINE INJ 0 20:21:00 [facility] 1965 Sex: M Patient Name: HAILEY LESTER Unit No: [id number] EXAMS: CPT CODE: [id number] XR FLUORO FOR SPINE INJ 25168 LUMBAR EPIRADICULAR INJECTION REFERRAL PHYSICIAN: Austen Calloway M.D. PREOPERATIVE DIAGNOSIS: Lumbar Radiculitis POSTOPERATIVE DIAGNOSIS: L3-4 epidural lipomatosis with stenosis and bilateral lumbar radiculitis PROCEDURES PERFORMED: Fluoroscopically guided needle localization of the bilateral L3 and bilateral L4 spinal nerves with transforaminal epidurograms and epidural injection of local anesthetic and steroid. FINDINGS: Good flow seen through the bilateral L3-4 and L4-5 foramen and no displacement was seen in the anterior epidural space from L2 to L5. Provocation with injection was negative. Anesthetic response was positive with the patient noting complete relief of his low back and bilateral lower extremity pain. Preinjection VAS 10/10. Postinjection VAS 0/10. Steroid response pending follow-up. ESTIMATED BLOOD LOSS: Minimal ANESTHESIA: TIVA COMPLICATIONS: None DETAILS OF PROCEDURE: After obtaining stable vital signs, informed consent and IV access, with no contraindications, the patient was taken to the operating room and placed in a prone position with all extremities padded and appropriate monitors placed. The patient was sterilely prepped and draped over the lumbosacral spine. Using fluoroscopic visualization the insertion sites were marked for paravertebral approaches and using standard technique, a 25 gauge needle was advanced to the base of each pedicle without paresthesias. Isovue-300 contrast 0.2 mL of was injected incrementally with frequent negative aspirations to produce each epidurogram. There were no signs of intravascular or intrathecal uptake. Bupivicaine 0.75% 0.25 mL with lidocaine 4% 0.5 mL and Decadron 5 mg was then incrementally injected with frequent negative aspirations and again there were no signs of intravascular or intrathecal uptake. The needles were removed and the patient was taken to the PACU in good condition. Image: Image 1 Image: Image 2 at 2020 Reported and signed by: Shoaib Austin M.D. [facility] NAME: HAILEY LESTER [address] [facility] PHYS: Shoaib Rodarte MD [place] [address] : 1965 AGE: 55 SEX: M LOC: YHenriqueANGÉLICA PHONE #: [phone] EXAM DATE: 11/16/2020 STATUS: REG [facility] FAX #: [phone] RAD #: [id number] D/C DT PAGE 1 Signed Report (CONTINUED) Patient Name: HAILEY LESTER Unit No: [id number] EXAMS: CPT CODE: [id number] XR FLUORO FOR SPINE INJ 50722 (Continued) CC: Shoaib Austin MD Technologist: GEMMA PATEL RT(R) Transcribed D/ (2020) [facility]: HA[facility]LEY LE[facility] [address] [facility] PHYS: Shoaib Rodarte MD [place] [address] : 1965 AGE: 55 SEX: M LOC: JomarANGÉLICA PHONE #: [phone] EXAM DATE: 11/16/2020 STATUS: REG [facility] FAX #: [phone] RAD #: [id number] D/C DT PAGE 2 Signed Report Patient Name: HAILEY LESTER Unit No: [id number] EXAMS: CPT CODE: [id number] XR FLUORO FOR SPINE INJ 81095 (Continued) Orig Print D/T: S: 11/16/2020 (2023) [facility] NAME: HAILEY LESTER [address] [facility] [address] PHYS: Shoaib Rodarte MD [place], [place] [address] : 1965 AGE: 55 SEX: M LOC: STEVEN PHONE #: [phone] EXAM DATE: 11/16/2020 STATUS: REG SD FAX #: [phone] RAD #: [id number] D/C DT PAGE 3 Signed Report - MRI L-SPINE W/O 2020-08-19 CONT 3 07:55:[facility] 1965 Sex: M Patient Name: HAILEY LESTER Unit No: [id number] EXAMS: CPT CODE: [id number] MRI L-SPINE W/O CONT 70025 DIAGNOSIS: 1. At L1-2 there is no evidence for disc bulge or herniation, bony canal or foraminal stenosis. 2. At L2-3 there is no evidence for disc bulge or herniation, bony canal or foraminal stenosis. Mild constriction of the thecal sac is seen due to epidural lipomatosis. 3. At L3-4 there is 2 mm of right foraminal disc bulging impinging on the right L3 nerve root. Mild right foraminal narrowing is present without left-sided stenosis. Moderate constriction of the thecal sac is seen due to facet and ligamentum flavum hypertrophic and degenerative change and epidural lipomatosis. 4. At L4-5 there is no evidence for disc bulge or herniation. Mild foraminal narrowing is seen. Facet and ligamentum flavum hypertrophic and degenerative changes are present with slight narrowing of the central canal. 5. At L5-S1 there is 2 mm of disc bulging lateralizing into the right neural foramen with annular fissuring and moderate right foraminal narrowing. No left foraminal stenosis is seen. Impingement on the right L5 nerve root is noted. No central canal stenosis is identified. COMMENT: COMPARISON: No prior exams available. Scans were performed in the sagittal and axial planes utilizing T1, T2 and inversion recovery images. Signal intensities in the lumbar vertebra within normal limits. There is disc desiccation from L3 to S1. Disc configurations are as described. Spondylitic changes are as noted. The conus is in the expected location. The description these findings assumes a normal count of 5 lumbar type vertebra. at 0755 Reported and signed by: Humble Carlos MD CC: Austen Calloway M.D. Technologist: ANTON COLON, AYANNA Transcribed D/ (0755) RadhikaJ[facility] NAME: HAILEY LESTER [address] [facility] PHYS: Joe Desir MD : 1965 AGE: 55 SEX: M [place] [address] LOC: Y.MRI PHONE #: [phone] EXAM DATE: 09/08/2020 STATUS: DEP CLI FAX #: [phone] RAD #: [id number] D/C DT PAGE 1 Signed Report Patient Name: HAILEY LESTER Unit No: [id number] EXAMS: CPT CODE: [id number] MRI L-SPINE W/O CONT 36889 (Continued) Orig Print D/T: S: 09/09/2020 (0759) [facility] NAME: HAILEY LESTER [address] [facility] PHYS: Joe Desir MD : 1965 AGE: 55 SEX: M [place] [address] LOC: Y.MRI PHONE #: [phone] EXAM DATE: 09/08/2020 STATUS: DEP CLI FAX #: [phone] RAD #: [id number] D/C DT PAGE 2 Signed Report CARDIAC ENZYMES 2018-09-19 <0.[address] 18:50:00 CARDIAC ENZYMES 2018-09-19 <0.02 [facility] 18:50:00 CARDIAC ENZYMES 2018-09-19 <0.02 [facility] [place] 12:05:00 CARDIAC ENZYMES 2018-09-19 <0.02 [facility] [place] 12:05:00 ELECTROLYTES 2018-09-19 8.6 [facility] [place] 08:18:00 ELECTROLYTES 2018-09-19 26 [facility] [place] 08:18:00 HEMATOLOGY 2018-09-19 6.6 [facility] [place] 08:18:00 HEMATOLOGY 2018-09-19 69.4 [facility] [place] 08:18:00 HEMATOLOGY 2018-09-19 22.1 [facility] [place] 08:18:00 HEMATOLOGY 2018-09-19 1.2 [facility] [place] 08:18:00 HEMATOLOGY 2018-09-19 2.3 [facility] [place] 08:18:00 HEMATOLOGY 2018-09-19 7.3 [facility] [place] 08:18:00 HEMATOLOGY 2018-09-19 0.7 [facility] [place] 08:18:00 HEMATOLOGY 2018-09-19 0.7 [facility] [place] 08:18:00 HEMATOLOGY 2018-09-19 0.1 [facility] [place] 08:18:00 HEMATOLOGY 2018-09-19 0.1 [facility] [place] 08:18:00 HEMATOLOGY 2018-09-19 97.7 [facility] [place] 08:18:00 HEMATOLOGY 2018-10-13 08:18:00 Test Item Value Reference Range Interpretation Comme nts MCH (test code = MCH) 33.2 pg 27.0-31.0 [facility] BlcauxuRVDXFBRCLR2581-10-04 08:18:0014.0[facility]ann[facility]MATOLOGY 2018-10-13 08:18:0034.0[facility] KpbuilbXQYOEOYRZP6422-38-41 08:18:65306Sdqwbguq BdhvhbsYQBUVKIZCT6064-27-41 08:18:008.7[facility] UjzcehlDTJBMDWEOW4675-55-55 08:18:005.21[facility] JdkfrejVDLBNTWCFK8604-28-15 08:18:0010.6[facility] [place] EGRWIAAMMA7420-14-71 08:18:0017.3[facility] BlhtbqaOPJQGAYYWZ3258-19-39 08:18:00 51.0[facility]annCARDIAC TVDUEJA2177-68-68 08:18:00<0.02[facility] [place] CARDIAC VCTNETQ8111-25-16 08:18:0025[facility] QfvfbvwIEFKOBCAFMST3261-47-67 08:18:0014.7[facility] TfyprmnZWFFWYCYNITZ3471-03-12 08:18:00 Test Item Value Reference Range Interpretation Comments B/C Ratio (test code = B/C Ratio) 11 1 6-25 [facility] UirmopzXWDJXPXAPBFM1218-63-56 08:18:00 Test Item Value Reference Range Interpretation Comments A/G Ratio (test code = A/G Ratio) 1.0 1 0.7-1.6 [facility] EgkvwmuGMEFRHBWWMGQ0266-89-54 08:18:003.7[facility] HermannELECTROLYTES 2018-10-13 08:18:0090[facility] EshgvvuFJWIKEHLDNUN5927-13-37 08:18:0097[facility] ZhcanchZFYOQFKACQEP4449-34-01 08:18:58690Muzwzghj RolgspnEDWDATVNTYJD2437-57-22 08:18:000.9[facility] FtyljqqGWCXUSQSKMWT5965-64-42 08:18:0077[facility] [place] JLFAMBSFADGP5125-35-16 08:18:0011[facility] MklwcibEVJIYURLUETP8438-56-23 08:18:00 116[facility] HhmxomzHEIOJMVBDKQY4678-23-18 08:18:000.96[facility] [place] IINGMJLXJUQF6064-35-20 08:18:43745Abmfzobq RumfcelMXFTLKTDHBDY4808-55-44 08:18:06645Xtyyplkw TpfymxjATEXVWGCKVAE8217-22-58 08:18:003.7[facility] CUXXAVSSFOKV8876-77-92 08:18:003.8[facility] BqbruykDTMFWEYRHDPX8778-29-90 08:18:007.5[facility] JkmusvpYKIYQPOILJSO8707-25-00 08:18:008.6[facility] [place] CZKUMHUYLMFF9355-52-34 08:18:0026[facility] RwjgzplDQPUNBOMLT2579-36-27 08:18:00 6.6[facility] DhyepgoPYVKOIWLDU0991-78-29 08:18:0069.4[facility]annHEMATOLOGY 2018-10-13 08:18:0022.1[facility] TswvgjcWKBKMMEVVX0991-96-25 08:18:001.2[facility] XvgyluxRFPAORUTNJ5650-97-82 08:18:002.3[facility] NqaoqutNRZPDWNOXN8156-07-86 08:18:007.3[facility] AnapxlvCKMJELIRKF3730-97-11 08:18:000.7[facility] [place] QIEYPWIVLJ8406-39-71 08:18:000.7[facility] GxgdqzrHAVOYIQIKD6854-93-72 08:18:000.1 [facility] OlvzystYGYOZWJFPF9130-14-57 08:18:000.1[facility]annHEMATOLOGY 2018-10-13 08:18:0097.7[facility] RwyqhzaBKDFLMLSRW4209-94-33 08:18:00 Test Item Value Reference Range Interpretation Comments MCH (test code = MCH) 33.2 pg 27.0-31.0 [facility] XtlnbusFYPAGNPIOJ8625-71-97 08:18:0014.0[facility]annHEMATOLOGY 2018-10-13 08:18:0034.0[facility] ZzvwdvgJQYBNJYPFD6953-28-34 08:18:08852Hmuipngo JrbdkvwYWURMMGGEH7765-28-37 08:18:008.7[facility] BtipryuGOYAQDIIAK1040-29-14 08:18:005.21[facility] IrgofmuJMCWKJQLCH2446-47-47 08:18:0010.6[facility] [place] KMYHQCBFKH8883-58-15 08:18:0017.3[facility] BhdwettBJQHUOZLLW1175-11-97 08:18:00 51.0[facility]annCARDIAC SBVTKVH5349-85-75 08:18:00<0.02[facility] [place] CARDIAC CUVHOLF0821-48-47 08:18:0025[facility] RbgddamQQBGDXOCZDJF3705-44-05 08:18:0014.7[facility] OwxhayfFPOKXBOPMQRC3735-45-26 08:18:00 Test Item Value Reference Range Interpretation Comments B/C Ratio (test code = B/C Ratio) 11 1 6-25 [facility] ZudcltyUDUBGZTCERCP4564-30-01 08:18:00 Test Item Value Reference Range Interpretation Comments A/G Ratio (test code = A/G Ratio) 1.0 1 0.7-1.6 [facility] QxluzhcEBGVEFMVJRHX7240-09-31 08:18:003.7[facility] HermannELECTROLYTES 2018-10-13 08:18:0090[facility] IcrfrsyGILNZELSCFYB9507-76-54 08:18:0097[facility] EebhsdjOJSDUSXNECTM2243-31-29 08:18:01613Eewdgxxv FogukkqLZIWEOTYIENE1787-28-29 08:18:000.9[facility] CibilrhHUGTHFSWSHDJ0009-10-65 08:18:0077[facility] [place] LKQAVFDBVMOX6735-94-66 08:18:0011[facility] HsbhbmqJHBHZACUZLDW8025-94-06 08:18:00 116[facility] FjpswhmUQGJHEPRMAMA2049-19-00 08:18:000.96[facility] [place] SQCQBUVJPCGL7825-26-91 08:18:87256Jpiaafah DnsaaayYGZOFBMZMVXL7573-91-20 08:18:15803Saelhofh KrqloarOSYUSIKUBOIJ2002-91-01 08:18:003.7[facility] [place] YPCZXBEXWRUD2488-88-35 08:18:003.8[facility] DgbvhhwFQLPTTVPSZBP7046-05-55 08:18:007.5[facility] AciqbvlCQYMWOEKWFTE4404-67-49 09:51:0014.5[facility] [place] QUIXSXKIKHKB1228-59-71 09:51:56540Hnthnkkl NytlkelAEZNHBFKVGCN6369-59-07 09:51:0028[facility] PjmkyqqZBKCNXPYTTSS6340-16-32 09:51:003.5[facility] [place] MCHMTEVYPJPP8473-21-24 09:51:000.85[facility] IoojjroSMMRQUUDHAAK6437-29-75 09:51:07240Czlaadsj VllxpzqKRJIRSEECOTK7456-69-30 09:51:79500Pfxefxpe [place] YXLNXQIMPVKA3637-30-52 09:51:0098[facility] ZngpmzxLVHMKMXVWOJX3391-81-49 09:51:00 8.6[facility] BcwhetyTQWHWBLJAPXG3708-34-88 09:51:0029[facility]annHEMATOLOGY 2017-01-31 09:51:008.2[facility] AekvuxxANHUKWQJBG4324-82-30 09:51:0034.1[facility] JpbltqjWODDDKBYLS1251-61-64 09:51:19373Qhsqarkz WfwrcsuSGFDLQVTIZ3405-31-64 09:51:0013.6[facility] VqelmoeZYQRKBUMZP1070-43-13 09:51:008.2[facility] [place] ABVNYLZCCG0929-00-76 09:51:005.08[facility] AvgincuTYJXTDFKUW0703-42-33 09:51:00 Test Item Value Reference Range Interpretation Comments MCH (test code = MCH) 31.9 pg 27.0-31.0 [facility] ShtpjfpVVRUFDQWKI5656-48-45 09:51:0047.5[facility]annHEMATOLOGY 2017-01-31 09:51:0093.5[facility] XontuhgYJLXHSZDNP7702-88-03 09:51:0016.2[facility] AabcnagSBYKSMAERC9730-61-36 09:51:000.1[facility] OeipnxoPPKALBUUSY4367-03-22 09:51:001.7[facility] QbgqdceNWBCZOJXSC1920-72-73 09:51:000.6[facility] [place] FCBZMTKILY1907-84-79 09:51:005.7[facility] XyvuapgVRYIAYPFQK7199-43-97 09:51:001.1 [facility] SzisasoBTDUXXFTUZ6618-61-39 09:51:000.6[facility]annHEMATOLOGY 2017-01-31 09:51:007.0[facility] GonlrzjHIQTLPKXAL3304-90-98 09:51:0070.5[facility] SrubafcUVMHVLEOWQ7360-78-35 09:51:0020.8[facility] IhifyxeKJWGPKDYDBWP0829-70-51 09:51:0014.5[facility] SbsrvpqOAKEYRQDKHVX4523-03-24 09:51:05781Cmidpstm [place] JBBSACHGZBIZ8238-50-02 09:51:0028[facility] NpiyzbhPWISMFTTYLJK6526-26-66 09:51:00 3.5[facility] QqwfzoyZQSQSOCDKFFO1097-83-44 09:51:000.85[facility] [place] OVOAPPQVZZVI4163-84-60 09:51:96125Zvbygzce DswcxniAQUFLZUKQIYG4194-66-29 09:51:29783Canxrxke WjhnnbnQNLJOHKMESLS2495-38-28 09:51:0098[facility] [place] DQFAKKGTIQUI8157-97-55 09:51:008.6[facility] KojswjqGHDBVWCDSFSE1961-37-71 09:51:0029[facility] DswugokVRJJKXWUCV6229-69-95 09:51:008.2[facility] [place] FLMSBYBJBE7643-18-73 09:51:0034.1[facility] JyaqmfcTDMQEMYUFO5877-81-38 09:51:00 177[facility] YmbpyujIEKEHHUKGY2403-80-61 09:51:0013.6[facility]annHEMATOLOGY 2017-01-31 09:51:008.2[facility] HdxeihjIOLQPYYOGI9690-88-61 09:51:005.08[facility] WtpridcTEDXSXJTOT6812-72-01 09:51:00 Test Item Value Reference Range Interpretation Comments MCH (test code = MCH) 31.9 pg 27.0-31.0 [facility] CclxqjjFQKDTPJUCU1107-83-61 09:51:0047.5[facility]annHEMATOLOGY 2017-01-31 09:51:0093.5[facility] HjnseinGLBUMQNKIL6154-45-25 09:51:0016.2[facility] BfzsffhBNQOMIAPTU5679-07-76 09:51:000.1[facility] BbukhkjDBBPIOZTCI4334-33-95 09:51:001.7[facility] ChaxcvgDHMCVNBYKK8475-24-05 09:51:000.6[facility] [place] ESHZFTYSSE6951-39-72 09:51:005.7[facility] OoudnrtLFYOSZTHUW8068-64-29 09:51:001.1 [facility] GyhwnglRDGVBFHXTQ1636-28-42 09:51:000.6[facility]annHEMATOLOGY 2017-01-31 09:51:007.0[facility] SfpfuabJAFJBASKJU3692-98-50 09:51:0070.5[facility] QuxajqtBDQBUENVEK3078-87-64 09:51:0020.8[facility] IvwwoviJGATAUWBMDAI4484-85-14 19:23:0013.4[facility] CplpksyLZMFHTDXQXXF9615-31-16 19:23:008.8[facility] [place] RHPQFBNIUOMB7979-24-70 19:23:0077[facility] OahpzucTLBJLRYSXPYE5294-43-17 19:23:00 4.4[facility] IqqjdctAAYPYGKNXAPR4777-03-59 19:23:75164Dczndiep [place] IYGEAUEEIEXN8516-13-25 19:23:001.10[facility] FrcvpnpXVILAQQUNPKD2361-58-21 19:23:0099[facility] UpahjexZSVKGIKSJXKZ4095-19-74 19:23:0026[facility] [place] CKFEAKUQSQBI6014-84-59 19:23:0026[facility] BmbneqyHGFMKUFGKGOX4423-06-22 19:23:00 119[facility] HxdcfecESGUMKZYLC0040-83-91 19:23:0017.2[facility]annHEMATOLOGY 2017-01-30 19:23:0050.1[facility] FxyowxiXSWVRDTAKM7766-77-65 19:23:0011.0[facility] AldzxbyXZOAXOJNBV8654-30-83 19:23:005.29[facility] YkbrjtdQVWYPMBLQZ1621-27-59 19:23:0013.7[facility] IbilwrxCGRVFOOBJC7668-59-79 19:23:0034.2[facility] [place] TZVHTZNADR1958-85-02 19:23:00 Test Item Value Reference Range Interpretation Comments MCH (test code = MCH) 32.4 pg 27.0-31.0 [facility] RewpzndSRCOTZTKDE0277-94-35 19:23:0094.7[facility]annHEMATOLOGY 2017-01-30 19:23:008.2[facility] VbpqpxsKIEBRHCCQF7724-80-73 19:23:61787Nbglhehn ErbkiidZGDMBTGETM9849-44-97 19:23:008.6[facility] VaqxpdcIFUZGBWFXR0956-59-47 19:23:000.9[facility] WmpyeqkMUNQVFHMII5836-66-52 19:23:000.4[facility] [place] MEYITMKMVK2680-25-50 19:23:000.1[facility] PhycplyVGHQZKXHWB7567-83-56 19:23:000.8 [facility] FjmpkfeUWGKVWWRWP0691-22-28 19:23:001.4[facility]annHEMATOLOGY 2017-01-30 19:23:0012.6[facility] BbviyaqUDCRUWIKAY3638-60-94 19:23:0078.7[facility] ShmoxgzKIAPCVWCUU5566-12-44 19:23:007.4[facility]annUR[facility] AND UBMYB3938-84-73 19:23:00Moderate *ABN*(01/30/17 2:23 PM)[facility] WQFDE4497-10-50 19:23:00Negative (01/30/17 2:23 PM)[facility] ZYDIO6902-85-98 19:23:008[facility] JIIGB6426-44-71 19:23:0042[facility] [place] URINE AND KHSSX1472-24-51 19:23:0012[facility] FQHKY9297-90-03 19:23:00Small *ABN*(01/30/17 2:23 PM)[facility] PMGCK8594-18-44 19:23:00Negative *NA*(01/30/17 2:23 PM)[facility] NBOWL8623-37-30 19:23:0033[facility] WKRKM6461-70-94 19:23:005.0[facility] [place] URINE AND LCIWR9113-82-70 19:23:00Marked *ABN*(01/30/17 2:23 PM)[facility] [place] URINE AND SFZGD0350-69-46 19:23:001.026[facility] AZWMU7593-58-02 19:23:00Yellow *NA*(01/30/17 2:23 PM)[facility] VnpohjoBMHYHCLJJWPO8522-05-52 19:23:0013.4[facility] HwqvdfhDHIJOBGXFJFB6556-09-45 19:23:008.8[facility] [place] SNEVGPMDKRLM5956-93-02 19:23:0077[facility] AyzaubsPYAHDOITZPEP3548-11-99 19:23:00 4.4[facility] GhranjjJAETIAVJAMIB2269-29-51 19:23:83351Cavtxskp [place] RTRINJWTGUFX3301-56-76 19:23:001.10[facility] NvrqbshFPVZICDHUXJR9446-83-16 19:23:0099[facility] RkvhmngDLSOTECYCAXU7299-70-26 19:23:0026[facility] [place] ZVDUVRHDZNQF4750-27-90 19:23:0026[facility] GjytkhqBAQCWJEZSWRS7784-06-46 19:23:00 119[facility] HwaamtwZEAUCAXKCZ8970-35-71 19:23:0017.2[facility]annHEMATOLOGY 2017-01-30 19:23:0050.1[facility] HiujpohNBVLJXLVLB9579-26-07 19:23:0011.0[facility] GrpvatbOWUTTALSEM9028-60-03 19:23:005.29[facility] YqhiryfLVHYVIJYTR7831-53-45 19:23:0013.7[facility] JxtallyYCSTRWUWCD7368-55-19 19:23:0034.2[facility] [place] AUHQVVGJVE3120-80-36 19:23:00 Test Item Value Reference Range Interpretation Comments MCH (test code = MCH) 32.4 pg 27.0-31.0 [facility] QrqhuqfFDMFYXQRVJ1594-82-67 19:23:0094.7[facility]annHEMATOLOGY 2017-01-30 19:23:008.2[facility] XffbmmdJAWJFUJLMO9117-72-43 19:23:70937Sbfgbkud HqzsdlmFNVQZOBVZR4497-50-31 19:23:008.6[facility] JcggfkuWUXWWYMDOG3218-06-21 19:23:000.9[facility] GmpyhrnNMLFVGVWOO4148-36-48 19:23:000.4[facility] [place] LYYKRJPZVN1971-00-79 19:23:000.1[facility] GddunkcVFWYEQCIOO3605-52-68 19:23:000.8 [facility] PkuerexCYVKDFUAQG5335-75-11 19:23:001.4[facility]MAT[facility] 2017-01-30 19:23:0012.6[facility] VlgltozKVRMOJSNKI1074-28-21 19:23:0078.7[facility] MxguxopUOIGBYLPTW2484-93-24 19:23:007.4[facility] VUOED4421-44-38 19:23:00Moderate *ABN*(01/30/17 2:23 PM)[facility] WOMFL5452-63-38 19:23:00Negative (01/30/17 2:23 PM)[facility] KNYJT5338-39-32 19:23:008[facility] RFSWY6286-34-13 19:23:0042[facility] [place] [facility]INE AND HOJOG5006-21-84 19:23:0012[facility] VXRQU2062-82-14 19:23:00Small *ABN*(01/30/17 2:23 PM)[facility] SZWKC7477-51-04 19:23:00Negative *NA*(01/30/17 2:23 PM)[facility] LVKUQ9671-90-76 19:23:0033[facility] IZMLW4987-58-74 19:23:005.0[facility] [place] URINE AND TOHGT8894-98-85 19:23:00Marked *ABN*(01/30/17 2:23 PM)[facility] [place] URINE AND DFQCP7896-29-72 19:23:001.026[facility] DFREJ0380-14-21 19:23:00Yellow *NA*(01/30/17 2:23 PM)[facility]annCHEM UVXXC2605-81-57 19:40:00 Test Item Value Reference Range Interpretation Comments eGFR (test code = eGFR) 88 [facility]annCHEM FQCDP1202-51-07 19:40:00 Test Item Value Reference Range Interpretation Comments Calcium Lvl (test code = Calcium Lvl) 8.8 8.5-10.5 [facility]2015-03-27 19:40:00 Test Item Value Reference Range Interpretation Comments Albumin Lvl (test code = Albumin Lvl) 4.0 3.5-5.0 [facility]2015-03-27 19:40:00 Test Item Value Reference Range Interpretation Comments Creatinine Lvl (test code = Creatinine 1.0 0.5-1.4 Lvl) [facility]2015-03-27 19:40:00 Test Item Value Reference Range Interpretation Comments CO2 (test code = CO2) 27 24-32 [place] 288045-03-27 19:40:00 Test Item Value Reference Range Interpretation Comments Chloride Lvl (test code = Chloride Lvl) 100 95-109 [facility]2015-03-27 19:40:00 Test Item Value Reference Range Interpretation Comments Potassium Lvl (test code = Potassium 4.2 3.5-5.1 Lvl) [facility]2015-03-27 19:40:00 Test Item Value Reference Range Interpretation Comments Sodium Lvl (test code = Sodium Lvl) 136 135-145 [facility]2015-03-27 19:40:00 Test Item Value Reference Range Interpretation Comments Bili Total (test code = Bili Total) 0.8 0.2-1.3 [facility]2015-03-27 19:40:00 Test Item Value Reference Range Interpretation Comments BUN (test code = BUN) 17 7-22 [facility]2015-03-27 19:40:00 Test Item Value Reference Range Interpretation Comments AST (test code = AST) 36 See_Comment [Auto mated message] The system which ge nerated this result transmit maico reference range : <=37. The reference range was not used to interpr et this result as farhat l/abnormal. [facility]2015-03-27 19:40:00 Test Item Value Reference Range Interpretation Comments Alk Phos (test code = Alk Phos) 71 39-136 [facility]2015-03-27 19:40:00 Test Item Value Reference Range Interpretation Comments Total Protein (test code = Total 7.7 6.4-8.4 Protein) [place] 288045-03-27 19:40:00 Test Item Value Reference Range Interpretation Comments ALT (test code = ALT) 78 See_Comment [Auto mated message] The system which ge nerated this result transmit maico reference range : <=65. The reference range was not used to interpr et this result as farhat l/abnormal. [place] 288045-03-27 19:40:00 Test Item Value Reference Range Interpretation Comments Glucose Lvl (test code = Glucose Lvl) 100 70-99 [place] 288045-03-27 19:40:00 Test Item Value Reference Range Interpretation Comments AGAP (test code = AGAP) 13.2 10.0-20.0 [place] 288045-03-27 19:40:00 Test Item Value Reference Range Interpretation Comments B/C Ratio (test code = B/C Ratio) 17 6-25 [place] 288045-03-27 19:40:00 Test Item Value Reference Range Interpretation Comments Globulin (test code = Globulin) 3.7 2.0-4.0 [place] 288045-03-27 19:40:00 Test Item Value Reference Range Interpretation Comments A/G Ratio (test code = A/G Ratio) 1.1 0.7-1.6 [place] 649905-03-27 19:40:00 Test Item Value Reference Range Interpretation Comments Basophils # (test code 0.1 See_Comment [Aut omated message] The = Basophils #) system which generated this result tra nsmitted reference range : <=0.2. The reference r yifan was not used to int erpret this result as normal/abnormal . [facility]xkr[facility]INDBJSBDR1208-97-[facility] 19:40:00 Test Item Value Reference Range Interpretation Comments Monocytes # (test code 0.6 See_Comment [Aut omated message] The = Monocytes #) system which generated this result tra nsmitted reference range : <=0.8. The reference r yifan was not used to int erpret this result as normal/abnormal . [place] 649905-03-27 19:40:00 Test Item Value Reference Range Interpretation Comments Segs-Bands # (test code = Segs-Bands #) 5.2 1.5-8.1 [place] 649905-03-27 19:40:00 Test Item Value Reference Range Interpretation Comments Basophils (test code = 1.0 See_Comment [Aut omated message] The Basophils) system which ge nerated this result tra nsmitted reference range : <=1.0. The reference r yifan was not used to int erpret this result as normal/abnormal . [facility] CenterSyjccsgDRECDBOCAP4905-76-89 19:40:00 Test Item Value Reference Range Interpretation Comments Lymphocytes # (test code = Lymphocytes 1.6 1.0-5.5 #) [facility] CenterQagvospXPIZUGGVQC4557-13-07 19:40:00 Test Item Value Reference Range Interpretation Comments Eosinophils # (test code 0.1 See_Comment [A utomated message] The = Eosinophils #) system whic h generated this result tra nsmitted reference range : <=0.5. The reference r yifan was not used to int erpret this result as normal/abnormal . [facility] CenterAwooinoAKZVAQNWJM9119-76-93 19:40:00 Test Item Value Reference Range Interpretation Comments Lymphocytes (test code = Lymphocytes) 21.1 20.0-40.0 [facility] CenterCbgnqxeOWLGCUHCHV8860-03-28 19:40:00 Test Item Value Reference Range Interpretation Comments Segs (test code = Segs) 68.2 45.0-75.0 [facility] CenterIcallzfAHUXOFNIEU7344-14-46 19:40:00 Test Item Value Reference Range Interpretation Comments Eosinophils (test code = 1.3 See_Comment [A utomated message] The Eosinophils) system which ge nerated this result tra nsmitted reference range : <=4.0. The reference r yifan was not used to int erpret this result as normal/abnormal . [facility] CenterGnnqjgnHIZUAVWYOJ9234-35-45 19:40:00 Test Item Value Reference Range Interpretation Comments Monocytes (test code = Monocytes) 8.4 2.0-12.0 [facility] CenterMzxrhzwPZRIBLJQTH7725-59-39 19:40:00 Test Item Value Reference Range Interpretation Comments RDW (test code = RDW) 14.2 11.5-14.5 [facility] CenterCuirikcBBDUJCXYPR1017-96-70 19:40:00 Test Item Value Reference Range Interpretation Comments MPV (test code = MPV) 8.7 7.4-10.4 [facility] CenterEygupliBSHVFOFGFR4560-10-45 19:40:00 Test Item Value Reference Range Interpretation Comments Platelet (test code = Platelet) 171 133-[address] [facility] HospitalYzezgedXNASDJFGWU2386-64-31 19:40:00 Test Item Value Reference Range Interpretation Comments RBC (test code = RBC) 5.02 4.70-6.10 [facility] CenterSmbghgkAZQIYIBSPB7400-78-92 19:40:00 Test Item Value Reference Range Interpretation Comments WBC (test code = WBC) 7.7 3.7-10.4 [facility] CenterSgpnlrgZZKRDPPCYS3847-30-95 19:40:00 Test Item Value Reference Range Interpretation Comments MCV (test code = MCV) 95.6 80.0-94.0 [facility] CenterDtieedrRIQTFBHBWN3495-09-22 19:40:00 Test Item Value Reference Range Interpretation Comments MCH (test code = MCH) 32.5 pg 27.0-31.0 [facility] CenterAzlcwmrIGXRZOMWWT4466-06-74 19:40:00 Test Item Value Reference Range Interpretation Comments MCHC (test code = MCHC) 34.0 32.0-36.0 [facility] CenterRtqprauAGAHIIGOZZ9712-85-63 19:40:00 Test Item Value Reference Range Interpretation Comments Hgb (test code = Hgb) 16.3 14.0-18.[address] [facility] HospitalWurzhxpRSSKXQZLIA3453-88-35 19:40:00 Test Item Value Reference Range Interpretation Comments Hct (test code = Hct) 48.0 42.0-54.0 [facility]CHE[facility] MRJBB4925-40-19 19:40:0088[facility] 2015-02-11 19:40:008.8[facility]annCHE[facility] DMQNF4567-66-00 19:40:004.0[facility]annCHE[facility] PRKUW7023-90-31 19:40:001.0[facility]annCHE[facility] TQZAB6239-34-63 19:40:0027[facility]annCHEM GURDC3972-36-55 19:40:12538Wyfcwfei HermannCHEM NRPKI7087-24-82 19:40:004.2[facility]annCHEM WUAIY2181-14-18 19:40:33034 [facility]CHE[facility] EHZFF2374-77-56 19:40:000.8[facility]annCHEM PANEL 2015-02-11 19:40:0017[facility]annCHEM WRNVG8097-00-33 19:40:0036[facility]annCHEM CCELK3935-27-30 19:40:0071[facility]annCHE[facility] WCIQA4531-39-14 19:40:007.7[facility]annCHEM ZVBMK2946-84-21 19:40:0078[facility]annCHEM ZBRJK0078-79-02 19:40:30037Jaabpfvi HermannCHEM JTPAZ8265-58-03 19:40:0013.2 [facility]annCHE[facility] QYVRK8052-66-40 19:40:0017[facility]annCHEM PANEL 2015-02-11 19:40:003.7[facility]annCHEM UBKPB7021-10-60 19:40:001.1[facility] SsgwcioTDWERNVKZU3282-59-70 19:40:000.1[facility] YgfffemWHVDZWIPNP3513-13-38 19:40:000.6[facility] KmmtwijJRLFUZMANQ8489-53-83 19:40:005.2[facility] [place] OULLOZCPNH7118-50-94 19:40:001.0[facility] SovlvwxVIOKEDSEWT0561-07-30 19:40:001.6 [facility] SqhrpvrWZGTTWEDQX1095-17-51 19:40:000.1[facility]annHEMATOLOGY 2015-02-11 19:40:0021.1[facility] PbjjeanLAZOKKYFGP2761-61-67 19:40:0068.2[facility] VvioyhlCBTPFTLNQX2975-85-33 19:40:001.3[facility] AeoijnjUIXQYLKAXU2473-88-33 19:40:008.4[facility] AfwsebbCIYDUNTZOT2481-87-22 19:40:0014.2[facility] UHQLNWTNFA7338-00-41 19:40:008.7[facility] MrbckbfHRTITMILFF7543-43-46 19:40:44052 [facility] StrqlquAZLTRROYFD6539-02-85 19:40:005.02[facility]annHEMATOLOGY 2015-02-11 19:40:007.7[facility] TnttdwfDHGUCIDJUB9617-77-58 19:40:0095.6[facility] AnyhvqcVXYGWLFLCQ2055-11-35 19:40:00 Test Item Value Reference Range Interpretation Comments MCH (test code = MCH) 32.5 pg 27.0-31.0 [facility] IwcuylwAVGKWGNHMW6624-58-91 19:40:0034.0[facility]annHEMATOLOGY 2015-02-11 19:40:0016.3[facility] KybfyzgHYUZTRFUXY6121-04-13 19:40:0048.0[facility]ann[facility] YOPFW5350-35-10 19:40:0088[facility]annCHEM MDSLE4199-32-21 19:40:008.8[facility] TBBEP4605-94-64 19:40:004.0[facility] UPBTV9228-05-78 19:40:001.0[facility] UTSAC3402-92-89 19:40:0027 [facility] [id number] 19:40:27669Zwckhzjg HermannCHEM PANEL 2015-02-11 19:40:004.2[facility]ann[facility] UGVYA1080-12-49 19:40:32116Ffijhdiv HermannCHEM GJAQC7854-67-40 19:40:000.8[facility]ann[facility] KCZZI0735-38-26 19:40:0017[facility]ann[facility] MOHQB2401-73-98 19:40:0036[facility]ann[facility] LWLXS8924-65-82 19:40:0071[facility]annCHE[facility] BIGTN1245-69-66 19:40:007.7 [facility] DHKJA6688-88-55 19:40:0078[facility]annCHEM PANEL 2015-02-11 19:40:98429Aeqblesg HermannCHEM RGGDA5862-19-31 19:40:0013.2[facility]ann[facility] OUYSA3365-63-17 19:40:0017[facility] EUINN1589-57-63 19:40:003.7[facility] ACJBX6623-96-41 19:40:001.1[facility] HNZWIPMQEM9891-94-91 19:40:000.1[facility] QszalfwIXBTGWGFUJ7433-21-49 19:40:000.6 [facility] JdymdgcWSIFYKTQDL9505-56-49 19:40:005.2[facility]annHEMATOLOGY 2015-02-11 19:40:001.0[facility] JcsarjnVWFDYUHVGV5564-09-28 19:40:001.6[facility] TbdupzkIDEGJAXDUJ8403-21-23 19:40:000.1[facility] EtactwiFLSOXIQVCE1283-75-19 19:40:0021.1[facility] RujoaymFSNVJRTKXW0111-52-31 19:40:0068.2[facility]ane NYVXVUTJOV3826-19-84 19:40:001.3[facility] AontykpIZSGISKNAD1647-15-24 19:40:008.4 [facility] PpwroguDZYXRDOHWY6209-31-79 19:40:0014.2[facility]annHEMATOLOGY 2015-02-11 19:40:008.7[facility] XglrzlpSSUFVBQQLE3937-73-73 19:40:87476Omfkynvk CbrrvrjMNZBVJLFYO6822-19-71 19:40:005.02[facility] RgoaqddNCTKYNGSLS2607-73-13 19:40:007.7[facility] NnumcbaVDIBCWWIJP5234-50-73 19:40:0095.6[facility]ane HRALFZUVRM0014-61-13 19:40:00 Test Item Value Reference Range Interpretation Comments MCH (test code = MCH) 32.5 pg 27.0-31.0 [facility] NkzlenbIWJAJONYRY7477-65-49 19:40:0034.0[facility]annHEMATOLOGY 2015-02-11 19:40:0016.3[facility] HikdhrqBCMFAMKWKG0448-01-09 19:40:0048.0[facility]
[2022-10-17 06:27] LABS: Absolute Lymphocytes (CBC) 1.3 K/uL (0.7-4.9); Hematocrit 48.8 % (39.6-49.0); Lymphocytes % 19.3 % (15.3-44.8); MCV 80.4 fL (80-100); MPV 7.8 fL (7.6-11.3); RBC Red Blood Cell Count 6.07 M/uL (4.33-5.43)
[2022-10-17] MEDS ORDERED: ONDANSETRON 4 MG/2 ML VIAL ONE (06:39)
[2022-10-17] MEDS ORDERED: NA CHLORIDE 0.9% 1,000 ML ONE (06:39)
[2022-10-17] MEDS ORDERED: NA CHLORIDE 0.9% 500 ML ONE (06:40)
[2022-10-17] MEDS ORDERED: HYDROMORPHONE HCL 1 MG/ML INJ ONE ×2 (06:40→09:24)
[2022-10-17 06:43] LABS: Albumin 3.7 g/dL (3.4-5.0); Bilirubin Total 0.4 mg/dL (0.2-1.0); Potassium 4.5 mmol/L (3.5-5.1)
[2022-10-17 07:20] LABS: Troponin High Sensitivity 12.4 pg/mL (<58.9)
--- NOTE | 2022-10-17 07:34 | ER ---
Nurse's Notes [facility] Name: John Matos Age: 57 yrs Sex: Male : 1965 Arrival Date: 10/17/2022 Time: 05:48 Bed 7 Private MD: Diagnosis: Persistent atrial fibrillation;Unspecified kidney failure;Pain in left hip-intractable;Essential (primary) hypertension Presentation: 10/17 05:56 Chief complaint: Patient states: "I fell off a ladder around 2AM" pt fell on left hip as6 and is c/o left hip pain. pt report being approx 2 ft off the ground. Coronavirus screen: At this time, the client does not indicate any symptoms associated with coronavirus-19. Ebola Screen: No symptoms or risks identified at this time. Initial Sepsis Screen: Does the patient meet any 2 criteria? No. Patient's initial sepsis screen is negative. Does the patient have a suspected source of infection? No. Patient's initial sepsis screen is negative. Risk Assessment: Do you want to hurt yourself or someone else? Patient reports no desire to harm self or others. Onset of symptoms was October 17, 2022 at 02:00. 05:56 Method Of Arrival: Wheelchair as6 05:56 Acuity: MELANIE 3 as6 Historical: - Allergies: 06:02 No Known Allergies; as6 - PMHx: 06:02 Hypertensive disorder; Asthma; as6 - PSHx: 06:02 Tonsillectomy; ankle; as6 - Immunization history:: Client reports receiving the 2nd dose of the Covid vaccine, moderna Flu vaccine is up to date. - Social history:: Smoking status: Patient denies any tobacco usage or history of. - Family history:: not pertinent. Screenin:40 Abuse screen: Denies threats or abuse. Denies injuries from another. Nutritional as6 screening: No deficits noted. Tuberculosis screening: No symptoms or risk factors identified. Fall Risk Fall in past 12 months (25 points). Total Mccain Fall Scale indicates Low Risk Score (25-44 pts). Family Present and informed to notify staff if they need to leave bedside As available Patient and Family Educated on Fall Prevention Program and strategies. Assessment: 06:00 General: Appears in no apparent distress. Behavior is calm, cooperative. General: as6 Appears obese. Pain: Complains of pain in left upper thigh and left inner thigh and pelvis and left hip. Neuro: Level of Consciousness is awake, alert, obeys commands, Oriented to person, place, time, situation. Respiratory: Respiratory effort is even, unlabored. Derm: Skin is intact, is healthy with good turgor. Musculoskeletal: Reports pain in left upper thigh and left inner thigh and pelvis and left hip. 07:00 Reassessment: Report received from RN. tylor Maher9 07:15 General: Appears in no apparent distress. comfortable, Behavior is calm, cooperative, mb9 appropriate for age. Pain: Complains of pain in left hip Pain radiates to left upper thigh and left inner thigh Pain currently is 5 out of 10 on a pain scale. Quality of pain is described as sharp, shooting, Aggravated by increased activity, repositioning, weight bearing. Neuro: Castle Agitation-Sedation Scale (RASS): 0 - Alert and Calm Level of Consciousness is awake, alert, obeys commands, Oriented to person, place, time, situation. Cardiovascular: Reports no history of previous afib Heart tones S1 S2 present Rhythm is atrial fibrillation. Respiratory: Airway is patent Respiratory effort is even, Respiratory pattern is tachypnea. GI: Abdomen is round Bowel sounds present X 4 quads. Abd is soft and non tender X 4 quads. : No signs and/or symptoms were reported regarding the genitourinary system. EENT: No signs and/or symptoms were reported regarding the EENT system. Derm: Skin is intact, is healthy with good turgor, Skin is dry, Skin is normal, Skin temperature is warm. Musculoskeletal: Range of motion: limited in left hip. Vital Signs: 05:56 BP 145 / 112; Pulse 94; Resp 16 S; Temp 98.8(O); Pulse Ox 92% on R/A; Weight 133.81 kg as6 (R); Height 5 ft. 8 in. (172.72 cm) (R); Pain 3/10; 06:44 BP 115 / 62; Pulse 84; Resp 18 S; Pulse Ox 94% on R/A; as6 07:45 BP 128 / 79; Pulse 99; Resp 21; Pulse Ox 96% on 2 lpm NC; Pain 5/10; mb9 05:56 Body Mass Index 44.85 (133.81 kg, 172.72 cm) as6 ED Course: 05:48 Patient arrived in ED. bp1 05:56 Gunnar Nicholson, RN is Primary Nurse. as6 05:56 Abdon Arredondo MD is Attending Physician. lulu 06:02 Triage completed. as6 06:03 Arm band placed on. as6 06:30 Inserted saline lock: 20 gauge in left antecubital area, using aseptic technique. Blood oe collected. 06:41 Placed in gown. Bed in low position. Call light in reach. Side rails up X2. as6 06:54 Pelvis XRAY In Process Unspecified. EDMS 06:54 Hip Left 2 View XRAY In Process Unspecified. EDMS 07:26 EKG done, by ED staff, reviewed by Abdon Arredondo MD. em1 07:32 William Matute is Hospitalizing Provider. lulu 07:55 CT Lumbar Spine Wo Con In Process Unspecified. EDMS 07:58 CT Pelvis wo Cont: include both hips In Process Unspecified. EDMS 08:03 COVID-19/FLU A+B Sent. mb9 08:04 Primary Nurse role handed off by Gunnar Nicholson RN mb9 08:04 Mary Anne Beal, MELISA is Primary Nurse. mb9 08:06 Chest Single View XRAY In Process Unspecified. EDMS 12:27 No provider procedures requiring assistance completed. Patient admitted, IV remains in mb9 place. 12:56 Primary Nurse role handed off by Mary Anne Beal RN iw 12:57 Mary Anne Beal, MELISA is Primary Nurse. mb9 Administered Medications: 06:50 Drug: NS 0.9% 500 ml Route: IV; Rate: bolus; Site: left antecubital; pf1 16:48 Follow up: Response: No adverse reaction mb9 06:50 Drug: NS 0.9% 1000 ml Route: IV; Rate: 125 ml/hr; Site: left antecubital; pf1 06:50 Drug: Dilaudid (HYDROmorphone) 1 mg Route: IVP; Site: left antecubital; pf1 06:50 Drug: Zofran (Ondansetron) 4 mg Route: IVP; Site: left antecubital; pf1 07:50 Drug: Lovenox (enoxaparin) 100 mg Route: Sub-Q; Site: left lower abdomen; mb9 08:30 Follow up: Response: No adverse reaction mb9 Medication: 06:42 VIS not applicable for this client. as6 Outcome: 07:33 Decision to Hospitalize by Provider. lulu 12:27 Admitted to Med/surg accompanied by tech, with oxygen. mb9 12:27 Condition: stable 12:27 Discharge instructions given to patient, Instructed on the need for admit, Demonstrated understanding of instructions. 12:28 Patient left the ED. mb9 14:40 Patient left the ED. aa5 Signatures: Dispatcher [employer] EDMS Abdon Arredondo MD MD cha Williams, Irene, RN RN Dallas Rose emMaddi Muniz RN RN aa5 Reymundo Brock Brittany bp1 Slawson, Ashby, RN RN as6 Mary Anne Beal, RN RN mb9 Peyton burnette RN RN pf1 Corrections: (The following items were deleted from the chart) 07:37 07:34 THYROID STIMULAT HORMONE+C.LAB.BRZ drawn and sent. 9 [facility] 08:33 07:15 Cardiovascular: Heart tones S1 S2 present Rhythm is regular mb9 mb9
--- NOTE | 2022-10-17 07:34 | EDPHYS ---
Physician Documentation [facility] Name: John Matos Age: 57 yrs Sex: Male : 1965 Arrival Date: 10/17/2022 Time: 05:48 Bed 7 Private MD: SERENA Physician Abdon Arredondo HPI: 10/17 06:08 This 57 yrs old Male presents to ER via Wheelchair with complaints of Fall lulu Injury. 06:08 Details of fall: The patient fell from a height, from a ladder, approximately 2 feet. lulu Onset: The symptoms/episode began/occurred just prior to arrival, this morning. Associated injuries: The patient sustained left hip, decreased range of motion, painful injury. Historical: - Allergies: 06:02 No Known Allergies; as6 - PMHx: 06:02 Hypertensive disorder; Asthma; as6 - PSHx: 06:02 Tonsillectomy; ankle; as6 - Immunization history:: Client reports receiving the 2nd dose of the Covid vaccine, moderna Flu vaccine is up to date. - Social history:: Smoking status: Patient denies any tobacco usage or history of. - Family history:: not pertinent. ROS: 06:08 Constitutional: Negative for fever, chills, and weight loss, Eyes: Negative for injury, lulu pain, redness, and discharge, ENT: Negative for injury, pain, and discharge, Neck: Negative for injury, pain, and swelling, Cardiovascular: Negative for chest pain, palpitations, and edema, Respiratory: Negative for shortness of breath, cough, wheezing, and pleuritic chest pain, Abdomen/GI: Negative for abdominal pain, nausea, vomiting, diarrhea, and constipation, Back: Negative for injury and pain, : Negative for injury, bleeding, discharge, and swelling, Skin: Negative for injury, rash, and discoloration, Neuro: Negative for headache, weakness, numbness, tingling, and seizure, Psych: Negative for depression, anxiety, suicide ideation, homicidal ideation, and hallucinations, Allergy/Immunology: Negative for hives, rash, and allergies, Endocrine: Negative for neck swelling, polydipsia, polyuria, polyphagia, and marked weight changes, Hematologic/Lymphatic: Negative for swollen nodes, abnormal bleeding, and unusual bruising. 06:08 MS/extremity: Positive for decreased range of motion, pain, of the left hip, left inner thigh and left upper thigh. Exam: 06:08 Constitutional: This is a well developed, well nourished patient who is awake, alert, lulu and in no acute distress. Head/Face: Normocephalic, atraumatic. Eyes: Pupils equal round and reactive to light, extra-ocular motions intact. Lids and lashes normal. Conjunctiva and sclera are non-icteric and not injected. Cornea within normal limits. Periorbital areas with no swelling, redness, or edema. ENT: Nares patent. No nasal discharge, no septal abnormalities noted. Tympanic membranes are normal and external auditory canals are clear. Oropharynx with no redness, swelling, or masses, exudates, or evidence of obstruction, uvula midline. Mucous membranes moist. Neck: Trachea midline, no thyromegaly or masses palpated, and no cervical lymphadenopathy. Supple, full range of motion without nuchal rigidity, or vertebral point tenderness. No Meningismus. Chest/axilla: Normal chest wall appearance and motion. Nontender with no deformity. No lesions are appreciated. Cardiovascular: Regular rate and rhythm with a normal S1 and S2. No gallops, murmurs, or rubs. Normal PMI, no JVD. No pulse deficits. Respiratory: Lungs have equal breath sounds bilaterally, clear to auscultation and percussion. No rales, rhonchi or wheezes noted. No increased work of breathing, no retractions or nasal flaring. Abdomen/GI: Soft, non-tender, with normal bowel sounds. No distension or tympany. No guarding or rebound. No evidence of tenderness throughout. Back: No spinal tenderness. No costovertebral tenderness. Full range of motion. Male : Normal genitalia with no discharge or lesions. Skin: Warm, dry with normal turgor. Normal color with no rashes, no lesions, and no evidence of cellulitis. Neuro: Awake and alert, GCS 15, oriented to person, place, time, and situation. Cranial nerves II-XII grossly intact. Motor strength 5/5 in all extremities. Sensory grossly intact. Cerebellar exam normal. Normal gait. Psych: Awake, alert, with orientation to person, place and time. Behavior, mood, and affect are within normal limits. 06:08 Musculoskeletal/extremity: ROM: intact in all extremities, limited active range of motion due to pain, limited passive range of motion due to pain, in the left hip, left gluteal fold, left inner thigh and left upper thigh, Circulation is intact in all extremities. Sensation intact. Compartment Syndrome exam of affected extremity: is normal. Weight bearing: is unable to bear weight. 07:37 ECG was reviewed by the Attending Physician. [facility] 07:37 ECG was reviewed by the Attending Physician. [facility] Vital Signs: 05:56 BP 145 / 112; Pulse 94; Resp 16 S; Temp 98.8(O); Pulse Ox 92% on R/A; Weight 133.81 kg as6 (R); Height 5 ft. 8 in. (172.72 cm) (R); Pain 3/10; 06:44 BP 115 / 62; Pulse 84; Resp 18 S; Pulse Ox 94% on R/A; as6 07:45 BP 128 / 79; Pulse 99; Resp 21; Pulse Ox 96% on 2 lpm NC; Pain 5/10; mb9 05:56 Body Mass Index 44.85 (133.81 kg, 172.72 cm) as6 MDM: 05:57 Patient medically screened. [facility] 06:11 Differential diagnosis: contusion, fracture, multiple trauma, sprain, strain. Data lulu reviewed: vital signs, nurses notes, lab test result(s), EKG, radiologic studies, CT scan, plain films. Data interpreted: therapist phys: rate is 94 beats/min, rhythm is regular, Pulse oximetry: on room air is 92 %. Test interpretation: by ED physician or midlevel provider: plain radiologic studies. Counseling: I had a detailed discussion with the patient and/or guardian regarding: the historical points, exam findings, and any diagnostic results supporting the discharge/admit diagnosis, lab results, radiology results. 10/17 06:05 Order name: CBC with Diff; Complete Time: 07:00 [facility] 10/17 06:05 Order name: Comprehensive Metabolic Panel; Complete Time: 07:00 [facility] 10/17 07:01 Order name: BNP [facility] 10/17 07:01 Order name: Troponin High Sensitivity [facility] 10/17 07:08 Order name: ABG [facility] 10/17 07:22 Order name: COVID-19/FLU A+B [facility] 10/17 07:37 Order name: Thyroid Stimulating Hormone [facility] 10/17 07:58 Order name: T4 Free [facility] 10/17 08:32 Order name: CKMB Creatine Kinase [facility] 10/17 08:32 Order name: Magnesium [facility] 10/17 08:32 Order name: NT PRO-BNP [facility] 10/17 08:32 Order name: Phosphorus [facility] 10/17 08:32 Order name: Protime (+INR) [facility] 10/17 06:05 Order name: Pelvis XRAY [facility] 10/17 06:05 Order name: Hip Left 2 View XRAY [facility] 10/17 07:01 Order name: Chest Single View XRAY [facility] 10/17 07:03 Order name: CT Lumbar Spine Wo Con [facility] 10/17 07:03 Order name: CT Pelvis wo Cont: include both hips [facility] 10/17 07:36 Order name: Echo w/ Doppler [facility] 10/17 08:32 Order name: Urinalysis [facility] 10/17 08:32 Order name: Basic Metabolic Panel [facility] 10/17 08:32 Order name: Basic Metabolic Panel [facility] 10/17 08:32 Order name: CBC with Automated Diff [facility] 10/17 08:32 Order name: CBC with Automated Diff [facility] 10/17 08:34 Order name: Hemoglobin A1c [facility] 10/17 08:34 Order name: Lipid Profile [facility] 10/17 09:41 Order name: ABG Arterial Blood Gas [facility] 10/17 11:09 Order name: Urine Dipstick-Ancillary [facility] 10/17 07:01 Order name: EKG; Complete Time: 07:01 [facility] 10/17 07:01 Order name: EKG - Nurse/Tech; Complete Time: 07:25 [facility] 10/17 07:26 Order name: EKG - Nurse/Tech; Complete Time: 07:33 mb9 10/17 08:29 Order name: NPO EDMS EC:37 Rate is 81 beats/min. Rhythm is irregularly irregular. QRS Mauldin is Normal. UT interval lulu is normal. QRS interval is normal. QT interval is normal. No Q waves. T waves are Normal. No ST changes noted. Clinical impression: Atrial Fibrillation. Interpreted by me. Reviewed by me. 07:37 Rate is 88 beats/min. Rhythm is irregularly irregular. QRS Mauldin is Normal. UT interval lulu is normal. QRS interval is normal. QT interval is normal. No Q waves. T waves are Normal. No ST changes noted. Clinical impression: Atrial Fibrillation. Interpreted by me. Reviewed by me. Administered Medications: 06:50 Drug: NS 0.9% 500 ml Route: IV; Rate: bolus; Site: left antecubital; pf1 16:48 Follow up: Response: No adverse reaction mb9 06:50 Drug: NS 0.9% 1000 ml Route: IV; Rate: 125 ml/hr; Site: left antecubital; pf1 06:50 Drug: Dilaudid (HYDROmorphone) 1 mg Route: IVP; Site: left antecubital; pf1 06:50 Drug: Zofran (Ondansetron) 4 mg Route: IVP; Site: left antecubital; pf1 07:50 Drug: Lovenox (enoxaparin) 100 mg Route: Sub-Q; Site: left lower abdomen; mb9 08:30 Follow up: Response: No adverse reaction mb9 Disposition Summary: 10/17/22 07:33 Hospitalization Ordered Hospitalization Status: Observation lulu Provider: William Matute cha Location: Telemetry/MedSurg (observation) lulu Condition: Stable lulu Problem: new lulu Symptoms: have improved lulu Bed/Room Type: Standard lulu Room Assignment: 218(10/17/22 12:08) iw Diagnosis - Persistent atrial fibrillation lulu - Unspecified kidney failure lulu - Pain in left hip - intractable lulu - Essential (primary) hypertension lulu Forms: - Medication Reconciliation Form lulu - SBAR form lulu Signatures: Dispatcher [employer] EDMS Abdon Arredondo MD MD cha Williams, Irene, RN RN iw Gunnar Nicholson RN RN as6 Mary Anne Beal RN RN mb9 Peyton burnette RN RN pf1 Corrections: (The following items were deleted from the chart) 07:37 07:32 THYROID STIMULAT HORMONE+C.LAB.BRZ ordered. EDIL EDMS 12:08 07:33 lulu iw
[2022-10-17] MEDS ORDERED: ENOXAPARIN 100 MG/ML SYR SQ ONE (07:37)
[2022-10-17 07:55] LABS: Thyroid Stimulating Hormone 4.23 uIU/mL (0.360-3.740)
[2022-10-17] MEDS ORDERED: ACETAMINOPHEN 325 MG TABLET PO PRN (08:25)
--- NOTE | 2022-10-17 08:27 | RAD REPORT ---
EXAM DESCRIPTION: CTSpine Lumbar Wo Con10/17/2022 7:53 am CLINICAL HISTORY: Back pain status post fall COMPARISON: None TECHNIQUE: Computed axial tomography lumbar spine was obtained with coronal and sagittal reconstruct ion. All CT scans are performed using dose optimization technique as appropriate and may include automated exposure control or mA/KV adjustment according to patient size. FINDINGS: No fracture is seen. No dislocation. Spondylosis L4-5 resulting mild central spinal stenosis. No high-grade stenosis seen IMPRESSION: Negative for a lumbar fracture. If patient continues have symptoms to suggest spinal canal pathology MRI would be recommended
[2022-10-17] MEDS ORDERED: ONDANSETRON 4 MG/2 ML VIAL IV PRN (08:29)
--- NOTE | 2022-10-17 08:31 | RAD REPORT ---
EXAM DESCRIPTION: CT - Pelvis Wo Cont - 10/17/2022 7:56 am CLINICAL HISTORY: Pelvic pain status post fall COMPARISON: None. TECHNIQUE: Computed axial tomography of the pelvis was obtained. Coronal and sagittal reconstruction performed All CT scans are performed using dose optimization technique as appropriate and may include automated exposure control or mA/KV adjustment according to patient size. FINDINGS: No fracture or dislocation is seen. Muscles are normal size and density. A subcutaneous contusion is not noted No significant hip joint effusion is seen IMPRESSION: No fracture seen
--- NOTE | 2022-10-17 08:31 | RAD REPORT ---
EXAM DESCRIPTION: RAD - Hip Left 2 View - 10/17/2022 6:52 am CLINICAL HISTORY: Left hip pain status post injury FINDINGS: No fracture or dislocation is seen.
--- NOTE | 2022-10-17 08:31 | RAD REPORT ---
EXAM DESCRIPTION: RAD - Pelvis - 10/17/2022 6:52 am CLINICAL HISTORY: Pelvic pain status post injury FINDINGS: No fracture or dislocation is seen.
--- NOTE | 2022-10-17 08:32 | RAD REPORT ---
EXAM DESCRIPTION: Shantal Single View10/17/2022 8:05 am CLINICAL HISTORY: Chest pain COMPARISON: none FINDINGS: Left base is hazy. Right lung appears clear The heart appears borderline enlarged IMPRESSION: The left base is hazy. This may be secondary to overlying soft tissue or infiltrate. PA and lateral chest series would be helpful
[2022-10-17] MEDS ORDERED: LABETALOL 20 MG/4ML SYRINGE IV PRN (08:34)
--- NOTE | 2022-10-17 08:35 | P.HP ---
Certification for Inpatient Patient admitted to: Observation With expected LOS: <2 Midnights Patient will require the following post-hospital care: None Practitioner: I am a practitioner with admitting privileges, knowledge of patient current condition, hospital course, and medical plan of care. Services: Services provided to patient in accordance with Admission requirements found in Title 42 Section 412.3 of the Code of Federal Regulations Patient History Date of Service: 10/17/22 Reason for admission: Left hip\back pain History of Present Illness: Patient is a 57-year-old male with a past medical history significant for hypertension, asthma, morbid obesity presents with complaint of left hip pain status post fall. Patient reportedly fell from a height of 2 feet and landed on his left hip. Patient denies hitting his head or losing consciousness. Patient reported that he was able to get up and went to bed. When he woke up he was unable to walk as he could not bear weight on the left leg. Patient also reported low back pain located towards the left side. Patient rated left hip pain as 10/10 and described pain as sharp in quality. Patient reported associated signs and symptoms of nausea. Patient denies any other signs and symptoms. Symptoms are aggravated or relieved by nothing. Patient decided to present to the hospital for medical evaluation. Allergies No Known Allergies Allergy (Unverified 10/17/22 08:48) Home Medications: Albuterol Inhaler [Ventolin Inhaler] 2 puff IH Q6H PRN 10/17/22 Anastrozole 2 tab PO SEECOM 10/17/22 Aspirin [Aspirin EC] 81 mg PO DAILY 10/17/22 Cetirizine HCl 10 mg PO DAILY 10/17/22 Furosemide 40 mg PO DAILY 10/17/22 Gabapentin 300 mg PO TID PRN 10/17/22 Meloxicam 7.5 mg PO DAILY 10/17/22 Olmesartan/Hydrochlorothiazide [Olmesartan-Hctz 40-12.5 mg Tab] 1 each PO DAILY 10/17/22 Ondansetron [Ondansetron Odt] 4 mg PO Q6H PRN 10/17/22 Potassium Chloride 20 meq PO DAILY 10/17/22 Semaglutide [Ozempic] 0.5 mg SQ SEECOM 10/17/22 Sildenafil Citrate [Viagra] 100 mg PO DAILY 10/17/22 Trazodone [Desyrel] 50 mg PO BEDTIME PRN 10/17/22 - Past Medical/Surgical History -: HTN -: Obesity -: Asthma Past Surgical History: Reviewed- Non-Contributory - Family History Brother -: Diabetes Father -: Heart disease, Diabetes - Social History Smoking Status: Never smoker Alcohol use: No CD- Drugs: No Caffeine use: Yes Place of Residence: Home Review of Systems General: Unremarkable Eyes: Unremarkable ENT: As per HPI Respiratory: Unremarkable Cardiovascular: Unremarkable Gastrointestinal: Nausea Genitourinary: Unremarkable Musculoskeletal: Back Pain, Leg Pain Neurological: Unremarkable Lymphatics: Unremarkable Physical Examination - Physical Exam General: Alert, Oriented x3 HEENT: Atraumatic, PERRLA, Mucous membr. moist/pink, EOMI, Sclerae nonicteric Neck: Supple, 2+ carotid pulse no bruit, No LAD, Without JVD or thyroid abnormality Respiratory: Clear to auscultation bilaterally, Normal air movement Cardiovascular: No edema, Regular rate/rhythm, Normal S1 S2 Capillary refill: <2 Seconds Gastrointestinal: Normal bowel sounds, Non-distended, No tenderness Musculoskeletal: No tenderness Integumentary: No rashes, No breakdown, No significant lesion Neurological: Normal speech, Normal tone, Normal affect, Abnormal gait Lymphatics: No axilla or inguinal lymphadenopathy - Studies Laboratory Data (last 24 hrs) 10/17/22 06:18: Sodium 138, Potassium 4.5, BUN 38 H, Creatinine 1.93 H, Glucose 97, Total Bilirubin 0.4, AST 16, ALT 29, Alkaline Phosphatase 59 10/17/22 06:18: WBC 6.70, Hgb 16.1, Hct 48.8, Plt Count 223 Assessment and Plan - Plan --Left hip pain\back pain. CT lumbar\pelvis unremarkable for any fracture or dislocation. MRI lumbar\left hip pending for further assessment. PT eval and treat. Continue supportive care. --Acute pain. We will manage pain with current medication regimen. --Hypertension. . Patient currently hypotensive. We will hold off on BP meds. --Asthma. Stable. Continue neb treatment with albuterol as needed. -- Class III obesity. Likely secondary to excess calories intake. Patient counseled on weight reduction, diet and excise therapy. --New onset A. fib. Cardiology consulted. Telemetry to monitor for any m alignant arrhythmia. Echocardiogram pending to assess LV\valvular function and wall motion. Continue Lovenox subQ. Further management per neurology teacher. --Hyperlipidemia. Further management per patient's PCP outpatient. --Insomnia. Continue trazodone. -- Peripheral neuropathy. Continue gabapentin. --CKD 3B. Baseline functions unknown. We will continue to monitor renal functions. --DM2. BS monitoring with sliding scale insulin. --DVT prophylaxis with Lovenox subQ. Discharge Plan: Home Plan to discharge in: 48 Hours - Advance Directives Does patient have a Living Will: No Does patient have a Durable POA for Healthcare: No - Code Status/Comfort Care Code Status Assessed: Yes Physician Review: Patient Assessed, Agree with Above Assessment and Plan Critical Care: No
[2022-10-17 08:45] LABS: SARS-COV-2 RT PCR NEGATIVE (NEGATIVE)
[2022-10-17] MEDS ORDERED: ANASTROZOLE 1 MG TAB PO SCH (09:00)
[2022-10-17] MEDS: HYDROMORPHONE HCL 1 MG/ML INJ IV PRN ×3 (09:28→21:50)
[2022-10-17 09:39] LABS: Arterial Blood Carboxyhemoglob 1.1 % (0-1.5); Blood Gas Oxyhemoglobin 91.4 % (94-97); Blood O2 Saturation 93.6 % (92-98.5)
[2022-10-17 10:17] VITALS: BMI 44.6
[2022-10-17 11:09] LABS: Urine Blood Negative (Negative); Urine Glucose Negative (Negative); Urine Protein Negative (Negative); Urine pH 5.5 (5.0-7.0)
[2022-10-17] MEDS ORDERED: NA CHLORIDE 0.9% 1,000 ML IV ONE (13:10)
[2022-10-17 14:03] LABS: CKMB Creatine Kinase MB 6.2 ng/mL (1.0-3.6); Magnesium 1.8 mg/dL (1.8-2.4); Phosphorus 4.2 mg/dL (2.5-4.9)
[2022-10-17 15:01] LABS: Protime INR 1.07
[2022-10-17] MEDS: METOPROLOL TAR 25 MG TAB PO SCH (18:00)
[2022-10-17] MEDS ORDERED: ALBUTEROL 2.5 MG/3 ML NEB SOL NEB PRN (18:28)
[2022-10-17] MEDS ORDERED: GABAPENTIN 300 MG CAP PO PRN (18:32)
[2022-10-17] MEDS ORDERED: TRAZODONE 50 MG TABLET PO PRN (18:32)
[2022-10-17] MEDS ORDERED: GLUCAGON 1 MG/VIAL IM PRN (18:44)
[2022-10-17] MEDS ORDERED: DEXTROSE 10%-WATER 500 ML IV BAG IV PRN (18:53)
[2022-10-17] MEDS: INSULIN -REGULAR HUMAN 50 UNIT/0.5 ML ML SQ SCH (21:00)
--- NOTE | 2022-10-17 21:17 | RAD REPORT ---
EXAM DESCRIPTION: MRI - Hip Left Wo Cont - 10/17/2022 9:06 pm CLINICAL HISTORY: Left Hip pain COMPARISON: Pelvis Wo Cont dated 10/17/2022 FINDINGS: No pelvic or hip fracture identified. No dislocation. No soft tissue abnormality is identi fied. There is signal is unremarkable. IMPRESSION: No left hip fracture or dislocation. No acute soft tissue abnormality.
--- NOTE | 2022-10-17 21:36 | RAD REPORT ---
EXAM DESCRIPTION: MRI - Lumbar Spine Wo Con - 10/17/2022 9:22 pm CLINICAL HISTORY: Severe low back pain COMPARISON: CT 10/17/2022 TECHNIQUE: Sagittal T1-weighted, T2-weighted and T2-STIR weighted sequences were obtained. Axial T1 -weighted and heavily T2-weighted sequenceswere obtained through the lumbar disc levels. FINDINGS: Lumbar bodies are normal in height and alignment. No suspicious marrow signal. No paraspin al masses. Some limited evaluation of the cauda equina due to artifact. No high-grade central spinal stenosis id entified. T12-L1 level: No significant findings. L1-2 level: No significant findings. L2-3 level: No significant findings. L3-4 level: Disc desiccation. No neural foraminal narrowing or central spinal stenosis. L4-5 level: No significant findings. L5-S1 level: No significant findings. IMPRESSION: No evidence of acute traumatic injury or significant degenerative changes.
[2022-10-17] MEDS: ENOXAPARIN 100 MG/ML SYR SQ SCH (21:45)
[2022-10-18] MEDS ORDERED: NA CHLORIDE 0.9% 500 ML IV ONE (00:48)
[2022-10-18] MEDS ORDERED: NA CHLORIDE 0.9% 500 ML ONE (01:08)
[2022-10-18 04:04] LABS: Absolute Lymphocytes (CBC) 1.4 K/uL (0.7-4.9); Hematocrit 47.7 % (39.6-49.0); Lymphocytes % 21.5 % (15.3-44.8); MCV 82.4 fL (80-100); MPV 8.4 fL (7.6-11.3); RBC Red Blood Cell Count 5.79 M/uL (4.33-5.43)
[2022-10-18 04:12] VITALS: O2SAT 96
[2022-10-18 04:37] LABS: Potassium 4.7 mmol/L (3.5-5.1)
[2022-10-18] MEDS: METOPROLOL TAR 25 MG TAB PO SCH (06:18)
[2022-10-18] MEDS: INSULIN -REGULAR HUMAN 50 UNIT/0.5 ML ML SQ SCH ×2 (07:30→11:30)
[2022-10-18] MEDS ORDERED: FUROSEMIDE 40 MG TABLET PO SCH (09:00)
[2022-10-18] MEDS ORDERED: POTASSIUM CL SA 10 MEQ TAB PO SCH (09:00)
[2022-10-18] MEDS ORDERED: HOME MED 1 EA UNK (Cetirizine Hcl [Cetirizine Hcl] 10 MG Tablet) PO SCH (09:00)
[2022-10-18] MEDS ORDERED: CETIRIZINE HCL 5 MG TABLET PO SCH (09:00)
[2022-10-18] MEDS: ENOXAPARIN 100 MG/ML SYR SQ SCH (09:36)
[2022-10-18] MEDS: HYDROMORPHONE HCL 1 MG/ML INJ IV PRN ×2 (09:40→14:24)
--- NOTE | 2022-10-18 13:23 | EKG ---
Test Date: 2022-10-17 Test Time: 12:52:16 Corporate Safety Coordinator: MB MEASUREMENT RESULTS: Intervals: Rate: 79 ME: 250 QRSD: 64 QT: 314 QTc: 360 [place]: P: 60 ME: 250 QRS: -27 T: 25 INTERPRETIVE STATEMENTS: Sinus rhythm with 1st degree AV block Low voltage QRS Cannot rule out Anterior infarct, age undetermined Abnormal ECG No previous ECG available for comparison Electronically Signed On 10-18-22 13:22:04 HAND SOLE SEWER by Jaylon Perez
--- NOTE | 2022-10-18 13:24 | EKG ---
Test Date: 2022-10-17 Test Time: 07:21:10 Nanotechnologist: GODFREY MEASUREMENT RESULTS: Intervals: Rate: 81 [place]: QRSD: 80 QT: 336 QTc: 390 [place]: P: MN: QRS: -33 T: 33 INTERPRETIVE STATEMENTS: Atrial fibrillation Left axis deviation Low voltage QRS Inferior infarct, age undetermined Cannot rule out Anterior infarct, age undetermined Abnormal ECG No previous ECG available for comparison Electronically Signed On 10-18-22 13:22:48 HOME COORDINATOR by Jaylon Perez
--- NOTE | 2022-10-18 14:35 | ECHO ---
HEIGHT: 5 ft 8 in WEIGHT: 294 lb 0 oz DATE OF STUDY: 10/18/[address]: Abdon Arredondo MD 2-DIMENSIONAL: YES M.MODE: YES DOPPLER: YES COLOR FLOW: YES TDS: YES PORTABLE: YES DEFINITY: BUBBLE STUDY: DIAGNOSIS: ATRIAL FIBRILLATION CARDIAC HISTORY: CATHERIZATION: NO SURGERY: NO PROSTHETIC VALVE: NO PACEMAKER: NO MEASUREMENTS (cm) DIASTOLIC (NORMALS) SYSTOLIC (NORMALS) IVSd 1.3 (0.6-1.2) LA Diam 3.2 (1.9-4.0) LVEF 59% LVIDd 4.4 (3.5-5.7) LVIDs 3.0 (2.0-3.5) %FS 31% LVPWd 1.4 (0.6-1.2) Ao Diam 2.0 (2.0-3.7) 2 DIMENSIONAL ASSESSMENT: RIGHT ATRIUM: NORMAL LEFT ATRIUM: NORMAL RIGHT VENTRICLE: NORMAL LEFT VENTRICLE: NORMAL TRICUSPID VALVE: MILD TRICUSPID REGURGITATION MITRAL VALVE: MILD MITRAL REGURGITATION PULMONIC VALVE: NORMAL AORTIC VALVE: NORMAL PERICARDIAL EFFUSION: NONE AORTIC ROOT: NORMAL LEFT VENTRICULAR WALL MOTION: NORMAL DOPPLER/COLOR FLOW: SEE BELOW COMMENTS: 1. NORMAL LEFT VENTRICULAR EJECTION FRACTION 55-60% 2. ATRIAL FIBRILLATION 3. MILD MITRAL REGURGITATION 4. MILD TRICUSPID REGURGITATION TECHNOLOGIST: GOPAL SHAH
--- NOTE | 2022-10-18 16:39 | P.DS ---
Admission Date: 10/17/22 Discharge Date: 10/18/22 Disposition: ROUTINE DISCHARGE Discharge Condition: FAIR Reason for Admission: Left hip\back pain - Problems (1) Fall from height of less than 3 feet Current Visit: Yes Status: Acute (2) Left hip pain Current Visit: Yes Status: Acute (3) Morbid obesity Current Visit: Yes Status: Acute (4) Paroxysmal atrial fibrillation Current Visit: Yes Status: Acute Brief History of Present Illness: Patient is a 57-year-old male with a past medical history significant for hypertension, asthma, morbid obesity presents with complaint of left hip pain status post fall. Patient reportedly fell from a height of 2 feet and landed on his left hip. Patient denied hitting his head or losing consciousness. Patient reported that he was able to get up and went to bed. When he woke up he was unable to walk as he could not bear weight on the left leg. Patient also reported low back pain located towards the left side. Patient rated left hip pain as 10/10 and described pain as sharp in quality. Patient noted to be in atrial fibrillation in the ED, imaging done did not show any fracture. Patient was hospitalized for further management. Hospital Course: Patient placed on observation on the medical floor and started on low-dose metoprolol, full dose lovenox. Echocardiogram was done which was unremarkable. Patient was in sinus rhythm throughout the hospital stay. Case discussed with cardiology Dr. Zhao who recommended metoprolol and Xarelto 20 mg daily and follow-up with him in the office. MRI of the hip did not show any acute fracture or acute soft tissue abnormality. Patient was able to ambulate with a walker. He is discharged with Armstrong for pain control and advised to use walker for ambulation until the pain improves. He may take meloxicam as an adjunct to Armstrong for pain control. He is advised not to take aspirin when he is taking the meloxicam regularly. Patient advised to follow-up with Dr. Zhao within 1 week. Vital Signs/Physical Exam: Temp Pulse Resp BP Pulse Ox 98.2 F 75 20 118/67 95 10/18/22 12:00 10/18/22 12:00 10/18/22 14:54 10/18/22 12:00 10/18/22 14:54 General: Alert, In no apparent distress, Oriented x3, Obese HEENT: Mucous membr. moist/pink Neck: Supple, JVD not distended Respiratory: Clear to auscultation bilaterally, Normal air movement Cardiovascular: No edema, Regular rate/rhythm, No murmurs Gastrointestinal: Normal bowel sounds, Soft and benign Musculoskeletal: No swelling, No tenderness Integumentary: No cyanosis Neurological: Normal strength at 5/5 x4 extr Laboratory Data at Discharge: WBC 6.70 K/uL (4.3-10.9) 10/18/22 02:34 Hgb 15.0 g/dL (13.6-17.9) 10/18/22 02:34 Hct 47.7 % (39.6-49.0) 10/18/22 02:34 Plt Count 205 K/uL (152-406) 10/18/22 02:34 PT 11.8 SECONDS (9.5-12.5) 10/17/22 14:39 INR 1.07 10/17/22 14:39 Sodium 136 mmol/L (136-145) 10/18/22 02:34 Potassium 4.7 mmol/L (3.5-5.1) 10/18/22 02:34 BUN 41 mg/dL (7-18) H 10/18/22 02:34 Creatinine 1.86 mg/dL (0.55-1.3) H 10/18/22 02:34 Glucose 109 mg/dL (74-106) H 10/18/22 02:34 Phosphorus 4.2 mg/dL (2.5-4.9) 10/17/22 06:18 Magnesium 1.8 mg/dL (1.8-2.4) 10/17/22 06:18 Total Bilirubin 0.4 mg/dL (0.2-1.0) 10/17/22 06:18 AST 16 U/L (15-37) 10/17/22 06:18 ALT 29 U/L (12-78) 10/17/22 06:18 Alkaline Phosphatase 59 U/L (45-117) 10/17/22 06:18 Triglycerides 179 mg/dL (<150) H 10/17/22 06:18 Cholesterol 128 mg/dL (<200) 10/17/22 06:18 HDL Cholesterol 30 mg/dL (40-60) L 10/17/22 06:18 Cholesterol/HDL Ratio 4.27 10/17/22 06:18 Home Medications: Albuterol Inhaler [Ventolin Inhaler*] 2 puff IH Q6H PRN 10/17/22 Anastrozole 2 tab PO SEECOM 10/17/22 Cetirizine HCl 10 mg PO DAILY 10/17/22 Furosemide 40 mg PO DAILY 10/17/22 Gabapentin 300 mg PO TID PRN 10/17/22 Olmesartan/Hydrochlorothiazide [Olmesartan-Hctz 40-12.5 mg Tab] 1 each PO DAILY 10/17/22 Ondansetron [Ondansetron Odt] 4 mg PO Q6H PRN 10/17/22 Potassium Chloride 20 meq PO DAILY 10/17/22 Semaglutide [Ozempic] 0.5 mg SQ SEECOM 10/17/22 Sildenafil Citrate [Viagra] 100 mg PO DAILY 10/17/22 Trazodone [Desyrel*] 50 mg PO BEDTIME PRN 10/17/22 Hydrocodone 7.5/APAP 325 [Armstrong 7.5/325 mg] 1 tab PO Q6H PRN #20 tab 10/18/22 Meloxicam 7.5 mg PO BID #14 tab 10/18/22 Metoprolol Tartrate [Lopressor*] 12.5 mg PO BID 6AM 6PM #30 tab 10/18/22 Rivaroxaban [Xarelto] 15 mg PO DAILY #30 tablet 10/18/22 New Medications: Metoprolol Tartrate [Lopressor*] 12.5 mg PO BID 6AM 6PM #30 tab Meloxicam 7.5 mg PO BID #14 tab Hydrocodone 7.5/APAP 325 [Armstrong 7.5/325 mg] 1 tab PO Q6H PRN #20 tab PRN Reason: Pain Rivaroxaban [Xarelto] 15 mg PO DAILY #30 tablet Physician Discharge Instructions: Please ambulate with a walker until pain improve to avoid falls. There is risk of life-threatening bleed if you fall while taking Xarelto. Diet: AHA Activity: Fall precautions Followup: NONE,NONE [Primary Care Provider] - Ed Zhao MD [ACTIVE - CAN ADMIT] - 1 Week (Please call [phone] for appointment.)
[2022-10-18 17:36] VITALS: BP 159/67; TEMP 98.1
== END 2022-10-18 18:27 | disposition home or self-care (01) ==
LOC: ER 05:42 → ERHOLD 08:22 → 2ND 12:26
PROVIDERS: ADMIT Internal Medicine; ATTEND Internal Medicine
DX: M25.552 Pain in left hip (principal); I48.0 Paroxysmal atrial fibrillation; I10 Essential (primary) hypertension; J45.909 Unspecified asthma, uncomplicated; E66.01 Morbid (severe) obesity due to excess calories; Z68.41 Body mass index [BMI] 40.0-44.9, adult; E78.5 Hyperlipidemia, unspecified; G47.00 Insomnia, unspecified; N18.32 Chronic kidney disease, stage 3b; E11.9 Type 2 diabetes mellitus without complications; W11.XXXA Fall on and from ladder, initial encounter; Y93.9 Activity, unspecified; Y92.9 Unspecified place or not applicable; Z20.822 Contact with and (suspected) exposure to COVID-19
CPT/HCPCS: 0240U; 36415; 71045; 72131; 72148; 72170; 72192; 80048; 80053; 80061; 81003; 82553; 82805; 82947; 83036; 83735; 83880; 84100; 84439; 84443; 84484; 85025; 85610; 93005; 93306; 96372; 96374; 96375; 97116; 97161; 99285; G0378; J1170; J1650; J2405; J7030; J7040

== ENCOUNTER 2023-10-26 05:34 | Emergency (ER) | payer BC, OTHER, SELFPAY ==
[2023-10-26] MEDS ORDERED: LIDOCAINE 1% MPF 5 ML VIAL ONE (06:18)
--- NOTE | 2023-10-26 07:31 | EDPHYS ---
Physician Documentation [facility] Name: John Matos Age: 58 yrs Sex: Male : 1965 Arrival Date: 10/26/2023 Time: 05:34 Bed 14 Private MD: ED Physician Abdon Arredondo HPI: 10/26 06:10 This 58 yrs old Male presents to ER via Wheelchair with complaints of Fall lulu Injury, Laceration To Head, Other. 06:10 Details of fall: The patient fell from seated position, off the edge of a bed. Onset: lulu The symptoms/episode began/occurred just prior to arrival. Associated injuries: The patient sustained injury to the head. Severity of symptoms: At their worst the symptoms were mild, in the emergency department the symptoms are unchanged. The patient has not experienced similar symptoms in the past. Historical: - Allergies: 05:57 No Known Allergies; pf1 - PMHx: 05:57 Asthma; Hypertensive disorder; Atrial fibrillation; pf1 - PSHx: 05:57 Ankle; Tonsillectomy; pf1 - Immunization history:: Adult Immunizations up to date, 4 doses of Moderna Last tetanus immunization: > 10 years ago Flu vaccine is up to date. - Social history:: Smoking status: Patient denies any tobacco usage or history of. Patient/guardian denies using alcohol, street drugs. ROS: 06:18 Constitutional: Negative for fever, chills, and weight loss, Eyes: Negative for injury, lulu pain, redness, and discharge, ENT: Negative for injury, pain, and discharge, Neck: Negative for injury, pain, and swelling, Cardiovascular: Negative for chest pain, palpitations, and edema, Respiratory: Negative for shortness of breath, cough, wheezing, and pleuritic chest pain, Abdomen/GI: Negative for abdominal pain, nausea, vomiting, diarrhea, and constipation, Back: Negative for injury and pain, : Negative for injury, bleeding, discharge, and swelling, MS/Extremity: Negative for injury and deformity, Skin: Negative for injury, rash, and discoloration, Psych: Negative for depression, anxiety, suicide ideation, homicidal ideation, and hallucinations, Allergy/Immunology: Negative for hives, rash, and allergies, Endocrine: Negative for neck swelling, polydipsia, polyuria, polyphagia, and marked weight changes, Hematologic/Lymphatic: Negative for swollen nodes, abnormal bleeding, and unusual bruising, 06:18 Neuro: Positive for headache, of the top of head, Exam: 06:18 Constitutional: This is a well developed, well nourished patient who is awake, alert, lulu and in no acute distress. Eyes: Pupils equal round and reactive to light, extra-ocular motions intact. Lids and lashes normal. Conjunctiva and sclera are non-icteric and not injected. Cornea within normal limits. Periorbital areas with no swelling, redness, or edema. ENT: Nares patent. No nasal discharge, no septal abnormalities noted. Tympanic membranes are normal and external auditory canals are clear. Oropharynx with no redness, swelling, or masses, exudates, or evidence of obstruction, uvula midline. Mucous membranes moist. Neck: Trachea midline, no thyromegaly or masses palpated, and no cervical lymphadenopathy. Supple, full range of motion without nuchal rigidity, or vertebral point tenderness. No Meningismus. Chest/axilla: Normal chest wall appearance and motion. Nontender with no deformity. No lesions are appreciated. Cardiovascular: Regular rate and rhythm with a normal S1 and S2. No gallops, murmurs, or rubs. Normal PMI, no JVD. No pulse deficits. Respiratory: Lungs have equal breath sounds bilaterally, clear to auscultation and percussion. No rales, rhonchi or wheezes noted. No increased work of breathing, no retractions or nasal flaring. Abdomen/GI: Soft, non-tender, with normal bowel sounds. No distension or tympany. No guarding or rebound. No evidence of tenderness throughout. Back: No spinal tenderness. No costovertebral tenderness. Full range of motion. Male : Normal genitalia with no discharge or lesions. Skin: Warm, dry with normal turgor. Normal color with no rashes, no lesions, and no evidence of cellulitis. MS/ Extremity: Pulses equal, no cyanosis. Neurovascular intact. Full, normal range of motion. Neuro: Awake and alert, GCS 15, oriented to person, place, time, and situation. Cranial nerves II-XII grossly intact. Motor strength 5/5 in all extremities. Sensory grossly intact. Cerebellar exam normal. Normal gait. Psych: Awake, alert, with orientation to person, place and time. Behavior, mood, and affect are within normal limits. 06:18 Head/face: Noted is a laceration(s), that is deep, 2.54 cm(s), Vital Signs: 05:53 BP 180 / 99; Pulse 108; Resp 16; Temp 97.5; Pulse Ox 95% on R/A; Weight 154.22 kg; pf1 Height 5 ft. 8 in. ; Pain 4/10; 06:50 BP 141 / 86; Pulse 87; Resp 16; Pulse Ox 96% on R/A; km8 07:30 BP 163 / 93; Pulse 79; Resp 18; Pulse Ox 95% on R/A; db 05:53 Body Mass Index 51.70 (154.22 kg, 172.72 cm) pf1 05:53 Pain Scale: Adult pf1 [place] Coma Score: 06:15 Eye Response: spontaneous(4). Motor Response: obeys commands(6). Verbal Response: km8 oriented(5). Total: 15. 06:20 Eye Response: spontaneous(4). Motor Response: obeys commands(6). Verbal Response: lulu oriented(5). Total: 15. Laceration: 07:28 Wound Repair of 3cm ( 1.2in ) subcutaneous laceration to top of head. Irregularly lulu shaped.. Distal neuro/vascular/tendon intact. Anesthesia: Local anesthetic administered with 8 mls of 1% lidocaine. Wound prep: Moderate cleansing with betadine by ia. Skin closed with 4 KORTNEY [place] using staple gun. Dressed with Neosporin. Patient tolerated well. MDM: 05:57 Patient medically screened. lulu 06:20 Differential diagnosis: Contusion of Hematoma on Laceration of Intracranial bleed- lulu Concussion without LOC. cerebral contusion. Differential diagnosis: abrasion, closed head injury, contusion, fracture, laceration, multiple trauma, sprain, strain. Data reviewed: vital signs, nurses notes, radiologic studies, CT scan. Consideration of Admission/Observation Escalation of care including admission/observation considered. I considered the following discharge prescriptions or medication management in the emergency department Medications were administered in the Emergency Department. See MAR. Test considered but Not performed: Labs: NO LABS. 10/26 06:09 Order name: CT Head C Spine km8 10/26 06:11 Order name: Dressing - Wound; Complete Time: 07:48 lulu 10/26 06:11 Order name: Gloves, Sterile; Complete Time: 06:11 lulu 10/26 06:11 Order name: Setup Suture Tray; Complete Time: 06:11 lluu Administered Medications: 06:17 Drug: Lidocaine Infiltration (1 %) 88 ml 5 ml Infiltration once; to bedside {Note: km8 given by Dr. Arredondo.} Volume: 5 ml; Route: Infiltration; 06:21 Drug: Tetanus Toxoid,Adsorbed IM 0.5 ml IM once; Provide Vaccine Information Statement km8 (VIS). 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 Questions and/or db concerns addressed. VIS edition date: Jun 23, 2021.; No adverse reaction Disposition Summary: 10/26/23 07:30 Discharge Ordered Notes: Location: Home lulu Problem: new lulu Symptoms: have improved lulu Condition: Stable lulu Diagnosis - Laceration without foreign body of other part of head - FFOREHEAD/SCALP lulu - Fall (on)(from) incline lulu Followup: lulu - With: Private Physician - When: 2 - 3 days - Reason: Recheck today's complaints, Continuance of care, Re-evaluation by your physician Discharge Instructions: - Discharge Summary Sheet lulu - Head Injury, Adult lulu - Laceration Care, Adult lulu - Facial Laceration, [id number] lulu - Head Injury, Adult, [id number] lulu Forms: - Medication Reconciliation Form lulu - Thank You Letter lulu - Antibiotic Education lulu - Prescription Opioid Use lulu - Patient Portal Instructions lulu - Leadership Thank You Letter lulu Signatures: Dispatcher [employer] Abdon Montes MD MD cha Finley, Pamala RN RN pf1 Sonam Flower RN RN km8 Muir, Earnestine RN db
--- NOTE | 2023-10-26 07:31 | ER ---
Nurse's Notes [facility] Name: John Matos Age: 58 yrs Sex: Male : 1965 Arrival Date: 10/26/2023 Time: 05:34 Bed 14 Private MD: Diagnosis: Laceration without foreign body of other part of head-FFOREHEAD/SCALP;Fall (on)(from) incline Presentation: 10/26 05:53 Chief complaint: Patient states: head injury with pain of 4 and a 3 cm v-shaped pf1 laceration to left upper forehead/scalp,onset 1 hour ago. No active bleeding noted at this time. Patient stated was sitting on a bench in the bedroom, fell asleep and hit head onto the armoire. Patient denies any LOC and is currently taking Xarelto for AFIB. Coronavirus screen: Client denies travel out of the [place] in the last 14 days. At this time, the client does not indicate any symptoms associated with coronavirus-19. Ebola Screen: Patient negative for fever greater than or equal to 101.5 degrees Fahrenheit, and additional compatible Ebola Virus Disease symptoms. Initial Sepsis Screen: Does the patient meet any 2 criteria? HR > 90 bpm. No. Patient's initial sepsis screen is negative. Does the patient have a suspected source of infection? No. Patient's initial sepsis screen is negative. Risk Assessment: Do you want to hurt yourself or someone else? Patient reports no desire to harm self or others. 05:53 Method Of Arrival: Wheelchair pf1 05:53 Acuity: MELANIE 3 pf1 06:15 Onset of symptoms was October 26, 2023 at 05:00. 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 - Social history:: Smoking status: Patient denies any tobacco usage or history of. Patient/guardian denies using alcohol, street drugs. Screenin:15 [facility] ED Fall Risk Assessment (Adult) History of falling in the last 3 months, km8 including since admission Yes- single mechanical fall (1 pt) Confusion or Disorientation No (0 pts) Intoxicated or Sedated No (0 pts) Impaired Gait No (0 pts) Mobility Assist Device Used No (0 pt) Altered Elimination No (0 pt) Score/Fall Risk Level 0 - 2 = Low Risk Oriented to surroundings, Maintained a safe environment, Educated pt \T\ family on fall prevention, incl call for assistance when getting out of bed, Assessed \T\ reinforced patient's understanding of fall precautions. Abuse screen: Denies threats or abuse. Denies injuries from another. Nutritional screening: No deficits noted. Tuberculosis screening: No symptoms or risk factors identified. Assessment: 06:15 General: Appears in no apparent distress. comfortable, Behavior is calm, cooperative, km8 appropriate for age. Pain: Complains of pain in top of head Pain currently is 6 out of 10 on a pain scale. Neuro: Castle Agitation-Sedation Scale (RASS): 0 - Alert and Calm Level of Consciousness is awake, alert, obeys commands, Oriented to person, place, time, situation. Cardiovascular: Denies chest pain, shortness of breath, Capillary refill < 3 seconds Patient's skin is warm and dry. Respiratory: Airway is patent Respiratory effort is even, unlabored, Respiratory pattern is regular, symmetrical. GI: No signs and/or symptoms were reported involving the gastrointestinal system. : No signs and/or symptoms were reported regarding the genitourinary system. EENT: No signs and/or symptoms were reported regarding the EENT system. Derm: Skin is healthy with good turgor, Skin is dry, Skin is pink, warm \T\ dry. normal, Skin temperature is warm Wound noted top of head Wound is laceration; bleeding controlled. Musculoskeletal: No signs and/or symptoms reported regarding the musculoskeletal system. Circulation, motion, and sensation intact. Range of motion: intact in all extremities. 07:15 Reassessment: Patient appears in no apparent distress at this time. Patient and/or db family updated on plan of care and expected duration. Pain level reassessed. Patient is alert, oriented x 3, equal unlabored respirations, skin warm/dry/pink. PATIENT WITH KORTNEY PLACED TO TOP OF HEAD. PT INSTRUCTED ON WOUND CARE AT HOME AND CLEANING. PT VERBALIZED UNDERSTANDING. Vital Signs: 05:53 BP 180 / 99; Pulse 108; Resp 16; Temp 97.5; Pulse Ox 95% on R/A; Weight 154.22 kg; pf1 Height 5 ft. 8 in. ; Pain 4/10; 06:50 BP 141 / 86; Pulse 87; Resp 16; Pulse Ox 96% on R/A; km8 07:30 BP 163 / 93; Pulse 79; Resp 18; Pulse Ox 95% on R/A; db 05:53 Body Mass Index 51.70 (154.22 kg, 172.72 cm) pf1 05:53 Pain Scale: Adult pf1 Mir Coma Score: 06:15 Eye Response: spontaneous(4). Motor Response: obeys commands(6). Verbal Response: km8 oriented(5). Total: 15. 06:20 Eye Response: spontaneous(4). Motor Response: obeys commands(6). Verbal Response: lulu oriented(5). Total: 15. ED Course: 05:39 Patient arrived in ED. gm2 05:51 Sonam Flower, MELISA is Primary Nurse. km8 05:57 Abdon Arredondo MD is Attending Physician. lulu 05:57 Triage completed. pf1 06:15 Patient has correct armband on for positive identification. Bed in low position. Call km8 light in reach. Side rails up X 1. Pulse ox on. NIBP on. Door closed. Noise minimized. Lights dimmed. 06:15 Arm band placed on right wrist. km8 06:15 No provider procedures requiring assistance completed. Patient maintains SpO2 km8 saturation greater than 95% on room air. 06:38 CT Head C Spine In Process Unspecified. EDMS 08:01 Provided Education on: DISCHARGE. db 08:01 Patient did not have IV access during this emergency room visit. db Administered Medications: 06:17 Drug: Lidocaine Infiltration (1 %) 88 ml 5 ml Infiltration once; to bedside {Note: km8 given by Dr. Arredondo.} Volume: 5 ml; Route: Infiltration; 06:21 Drug: Tetanus Toxoid,Adsorbed IM 0.5 ml IM once; Provide Vaccine Information Statement km8 (VIS). 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 Questions and/or db concerns addressed. VIS edition date: Jun 23, 2021.; No adverse reaction Medication: 06:24 Vaccine Information Statement (VIS) provided today. Questions and/or concerns km8 addressed. VIS edition date: June 23, 2021. Outcome: 07:30 Discharge ordered by . lulu 08:01 Discharged to home ambulatory, with family, db 08:01 Condition: stable 08:01 Discharge instructions given to patient, Instructed on discharge instructions, follow up and referral plans. 08:03 Patient left the ED. db Signatures: Dispatcher [employer] Abdon Montes MD MD cha Benton, Danielle, RN RN Peyton Rainey RN RN Yumiko Hernandez Katie, RN RN km8
[2023-10-26 08:11] VITALS: TEMP 97.5
[2023-10-26 08:14] VITALS: BP 163/93; O2SAT 95
--- NOTE | 2023-10-28 10:59 | RAD REPORT ---
EXAM DESCRIPTION: CT - Head C Spine Mpr Wo Con - 10/26/2023 7:20 am CLINICAL HISTORY: Head injury COMPARISON: None available TECHNIQUE: Axial CT of the head obtained from the skull apex to the skull base without contrast. Axi al CT images of the cervical spine obtained without contrast. This exam was performed according to [facility] departmental dose-optimization program, which includes automated exposure control, adjustment of th e mA and/or kV according to patient size and/or use of iterative reconstruction technique. FINDINGS: Head CT: No acute intracranial hemorrhage identified. No mass, mass effect, shift of the midline, abnormal ext ra-axial fluid collection or CT evidence of acute ischemic change identified. The ventricular system and sulcal spaces are age appropriate. Scattered areas of hypodensity throughout the supratentorial white matter are nonspecific and may be related to chronic small vessel ischemic change. Mucosal thickening of the left maxillary sinus. Mastoid air cells are well aerated. No skull fracture identified. Visualized orbits and globes are unremarkable. Cervical CT : Straightening of the cervical lordosis may be secondary to patient positioning. Anterior fixation of the cervical spine at C6/7. Large amount of artifact affecting the inferior aspect of the cervical sp ine. The atlantoaxial, atlantodental, and occipitoatlantal intervals are preserved. No fracture i dentified. Vertebral body height preserved. Prevertebral soft tissues are unremarkable. Mild multilevel loss of intervertebral disc height with endplate spondylosis, facet arthropathy, and uncovertebral spurring. Visualized skull base is intact. Visualized mastoid air cells and paranasal sinuses are well aerat ed. Visualized thyroid is unremarkable. No cervical lymphadenopathy. No pneumothorax in the visualized lung apices. IMPRESSION: 1. No acute intracranial abnormality by CT criteria. 2. No acute fracture or subluxation of the cervical spine. 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 The interpreting r adiologist is fully responsible for the content of the report.
== END 2023-10-26 08:03 | disposition home or self-care (01) ==
LOC: ER 05:34
PROC: 0JQ03ZZ Repair Scalp Subcutaneous Tissue and Fascia, Percutaneous Approach (ICD-10-PCS; principal; 2023-10-26)
DX: S01.01XA Laceration without foreign body of scalp, initial encounter (principal); W08.XXXA Fall from other furniture, initial encounter; I48.91 Unspecified atrial fibrillation; I10 Essential (primary) hypertension; J45.909 Unspecified asthma, uncomplicated; Z23 Encounter for immunization
CPT/HCPCS: 70450; 72125; 90471; 99284; 12002; J2001

== ENCOUNTER 2024-07-25 20:17 | Inpatient (IN) | payer BC ==
[2024-07-25] MEDS ORDERED: ONDANSETRON 4 MG/2 ML VIAL ONE (21:18)
[2024-07-25] MEDS ORDERED: MORPHINE 4 MG/ML SYR ONE ×2 (21:18→23:39)
[2024-07-25 21:32] LABS: Absolute Basophils 0.1 K/uL (0-0.5); Absolute Eosinophils 0.1 K/uL (0-0.5); Absolute Lymphocytes (CBC) 0.9 K/uL (0.7-4.9); Absolute Monocytes 1.1 K/uL (0.1-1.3); Absolute Neutrophil 11.7 K/uL (1.8-8.0); Basophils % 0.7 % (0-1.3); Eosinophils % 0.4 % (0-4.4); Hematocrit 50.1 % (39.6-49.0); Hemoglobin 15.7 g/dL (13.6-17.9); Lymphocytes % 6.8 % (15.3-44.8); MCH 25.7 pg (27.0-35.0); MCHC 31.3 g/dL (32.0-36.0); MCV 82.1 fL (80-100); Monocytes % 8.1 % (3.3-12.3); Platelets 196 thou/uL (152-406)
[2024-07-25 21:36] LABS: PT Prothrombin Time 16.6 SECONDS (9.4-12.5); PTT, Activated Partial Thromb 38.2 SECONDS (24.3-36.9); Protime INR 1.5
[2024-07-25 21:42] LABS: Albumin 2.9 g/dL (3.4-5.0); Albumin/Globulin Ratio 0.8 (1.1-1.8); Anion Gap 11.1 mEq/L (5.0-15.0); Bilirubin Total 0.5 mg/dL (0.2-1.0); Globulin 3.6 g/dL (2.3-3.5); Potassium 4.1 mEq/L (3.5-5.1); Protein, Total 6.5 g/dL (6.4-8.2)
[2024-07-25] MEDS ORDERED: ACETAMINOPHEN 500 MG TAB ONE (21:56)
[2024-07-25] MEDS ORDERED: NA CHLORIDE 0.9% 50 ML ONE (21:56)
[2024-07-25] MEDS ORDERED: CEFTRIAXONE 1000 MG/VIAL ONE (21:56)
--- NOTE | 2024-07-25 22:34 | RAD REPORT ---
EXAM DESCRIPTION: CT - Stone Protocol - 07/25/2024 10:09 pm CLINICAL HISTORY: hematuria, fever COMPARISON: Pelvis Wo Cont dated 10/17/2022 TECHNIQUE: Thin cut axial CT imaging of the abdomen and pelvis was performed without IV contrast. Mu ltiplanar reformats were generated and reviewed. All CT scans are performed using dose optimization technique as appropriate and may include automated exposure control or mA/KV adjustment according to patient size. FINDINGS: No suspicious findings in the lung bases. The liver, spleen, adrenal glands, and pancreas show no suspicious findings. Gallbladder and biliary tree are also without suspicious finding. Symmetric renal contour, without suspicious parenchymal findings within limits of noncontrast techniq ue. No evidence of radiopaque calculi or hydroureteronephrosis. Bilateral lower pole cortical hypoatt enuating lesions suggesting cysts, the largest measuring 3 cm. No dilated bowel loops or bowel wall thickening. No free air, free fluid or inflammatory stranding. N o hernia, mass or bulky lymphadenopathy. Urinary bladder is suboptimally distended limiting evaluation, however with mild pericystic fat stran ding. Asymmetric swelling/enlargement along the right aspect of the seminal vesicle, with adjacent fat stra nding. No suspicious bony findings. IMPRESSION: Asymmetric swelling/enlargement along the right aspect of the seminal vesicle. Mild marleen cystic fat stranding. Findings suggest an infectious or inflammatory genitourinary process.
--- NOTE | 2024-07-25 22:38 | RAD REPORT ---
EXAM DESCRIPTION: US - Scrotum Testicles - 07/25/2024 9:30 pm CLINICAL HISTORY: right testicular swelling, fever COMPARISON: Pelvis Wo Cont dated 10/17/2022; Stone Protocol dated 07/25/2024 TECHNIQUE: Sonographic grayscale and color flow images of the scrotum were obtained. FINDINGS: The right testicle measures 2.6 x 2.8 x 3.4 cm. Mildly increased vascularity throughout th e right testicular parenchyma. No intratesticular masses or evidence of testicular torsion. The left testicle measures 3.3 x 2.8 x 2.3 cm. No intratesticular masses or evidence of testicular to rsion. Enlargement and increased vascularity of the right epididymis especially at the body and tail. Increa sed echogenicity in the adjacent fat. Trace right hydrocele. The left epididymis is unremarkable apart from 2 small well-circumscribed cyst at the epididymal head largest measures 5 mm. IMPRESSION: Enlargement and increased vascularity of the right epididymis especially at the body and tail. Mildly increased vascularity throughout the right testicular parenchyma. Findings suggest acut e infectious or inflammatory epididymo-orchitis. Trace right hydrocele. Incidentally noted small epididymal head cysts largest measuring 5 mm, benign in appearance.
--- NOTE | 2024-07-25 23:04 | ER ---
Nurse's Notes [facility] Name: John Matos Age: 59 yrs Sex: Male : 1965 Arrival Date: 07/25/2024 Time: 20:17 Bed 2 Private MD: Diagnosis: Epididymo-orchitis;Acute cystitis Presentation: 07/25 20:32 Chief complaint: Patient states: diagnosed with UTI a few days ago, has been taking tm6 antibiotics. Yesterday, right testicle started to swell. Causing pain. Coronavirus screen: Vaccine status: Patient reports receiving the 2nd dose of the covid vaccine. Ebola Screen: Patient negative for fever greater than or equal to 101.5 degrees Fahrenheit, and additional compatible Ebola Virus Disease symptoms Patient denies exposure to infectious person. Patient denies travel to an Ebola-affected area in the 21 days before illness onset. No symptoms or risks identified at this time. Initial Sepsis Screen: Does the patient meet any 2 criteria? No. Patient's initial sepsis screen is negative. Does the patient have a suspected source of infection? No. Patient's initial sepsis screen is negative. Risk Assessment: Do you want to hurt yourself or someone else? Patient reports no desire to harm self or others. Onset of symptoms was July 24, 2024. 20:32 Method Of Arrival: Ambulatory tm6 20:32 Acuity: EMLANIE 3 tm6 Triage Assessment: 20:34 General: Appears uncomfortable, Behavior is calm, cooperative. Pain: Complains of pain tm6 in groin Pain does not radiate. Pain currently is 10 out of 10 on a pain scale. Pain began 1 day ago. EENT: No signs and/or symptoms were reported regarding the EENT system. Neuro: Level of Consciousness is awake, alert, obeys commands, Oriented to person, place, time, situation. Cardiovascular: Patient's skin is warm and dry. Respiratory: Airway is patent Respiratory effort is even, unlabored. GI: No signs and/or symptoms were reported involving the gastrointestinal system. Abdomen is round. : Reports pain testicle, since yesterday recent UTI. Derm: No signs and/or symptoms reported regarding the dermatologic system. Musculoskeletal: No signs and/or symptoms reported regarding the musculoskeletal system. Historical: - Allergies: 20:33 No Known Allergies; tm6 - PMHx: 20:33 Asthma; Atrial fibrillation; Hypertensive disorder; tm6 - PSHx: 20:33 Ankle; Tonsillectomy; tm6 20:34 neck; tm6 - Immunization history:: Client reports receiving the 2nd dose of the Covid vaccine. - Infectious Disease History:: Denies. - Social history:: Smoking status: Patient denies any tobacco usage or history of. Patient/guardian denies using alcohol. - Family history:: not pertinent. - Hospitalizations: : No recent hospitalization is reported. Screenin:37 [facility] ED Fall Risk Assessment (Adult) History of falling in the last 3 months, al5 including since admission No falls in past 3 months (0 pts) Confusion or Disorientation No (0 pts) Intoxicated or Sedated No (0 pts) Impaired Gait No (0 pts) Mobility Assist Device Used No (0 pt) Altered Elimination No (0 pt) Score/Fall Risk Level 0 - 2 = Low Risk Oriented to surroundings, Maintained a safe environment, Hourly rounding (assess needs \T\ fall precautionary measures) done. Abuse screen: Denies threats or abuse. Denies injuries from another. Nutritional screening: No deficits noted. Tuberculosis screening: No symptoms or risk factors identified. Assessment: 20:38 General: Appears in no apparent distress. uncomfortable, Behavior is calm, cooperative. al5 Pain: Complains of pain in groin, R testicle Pain currently is 9.5 out of 10 on a pain scale. Neuro: Level of Consciousness is awake, alert, obeys commands, Oriented to person, place, time, situation. Cardiovascular: Capillary refill < 3 seconds Patient's skin is warm and dry. Respiratory: Airway is patent Respiratory effort is even, unlabored, Respiratory pattern is regular, symmetrical. GI: No signs and/or symptoms were reported involving the gastrointestinal system. Abdomen is round non-distended. : Reports r testicular pain, recently diagnosed with uti. EENT: No signs and/or symptoms were reported regarding the EENT system. Derm: Skin is intact, Skin is pink, warm \T\ dry. normal. Musculoskeletal: No signs and/or symptoms reported regarding the musculoskeletal system. 22:15 Reassessment: Patient appears in no apparent distress at this time. No changes from al5 previously documented assessment. Patient and/or family updated on plan of care and expected duration. Pain level reassessed. Patient is alert, oriented x 3, equal unlabored respirations, skin warm/dry/pink. 07/26 00:43 Reassessment: Patient appears in no apparent distress at this time. No changes from al5 previously documented assessment. Patient and/or family updated on plan of care and expected duration. Pain level reassessed. Patient is alert, oriented x 3, equal unlabored respirations, skin warm/dry/pink. Vital Signs: 07/25 20:31 BP 183 / 69; Pulse 91; Resp 25; Temp 100.1(O); Pulse Ox 97% on R/A; Weight 136.08 kg; tm6 Height 5 ft. 9 in. ; Pain 10/10; 20:35 BP 179 / 86; Pulse 95; Resp 22; Pulse Ox 92% on R/A; al5 21:00 BP 128 / 63; Pulse 91; Resp 24; Pulse Ox 92% on R/A; al5 21:30 BP 126 / 83; Pulse 90; Resp 21; Pulse Ox 92% on R/A; al5 22:00 BP 123 / 64; Pulse 87; Resp 20; Pulse Ox 91% on R/A; al5 22:30 BP 110 / 52; Pulse 72; Resp 19; Pulse Ox 90% on R/A; al5 23:00 BP 91 / 54; Pulse 88; Resp 19; Pulse Ox 90% on R/A; al5 23:30 BP 117 / 60; Pulse 93; Resp 21; Pulse Ox 90% on R/A; al5 07/26 00:00 BP 103 / 56; Pulse 78; Resp 20; Pulse Ox 91% on R/A; al5 07/25 20:31 Body Mass Index 44.30 (136.08 kg, 175.26 cm) tm6 07/25 20:31 Pain Scale: Adult tm6 07/25 20:35 hx of CHF al5 21:00 L lower arm al5 ED Course: 20:20 Patient arrived in ED. jj6 20:31 Jaswant Parra MD is Attending Physician. rn 20:33 Triage completed. tm6 20:34 Arm band placed on left wrist. tm6 20:37 Angie Liu RN is Primary Nurse. al5 20:37 Patient has correct armband on for positive identification. Placed in gown. Bed in low al5 position. Call light in reach. Side rails up X2. Provided Education on: processes and procedures. 21:32 US Scrotum Testicles In Process Unspecified. EDMS 21:50 No provider procedures requiring assistance completed. notified MD that there will be a al5 delay in urine sample due to patient using restroom prior to arrival. MD aware. Inserted saline lock: 20 gauge in right antecubital area, using aseptic technique. Blood collected. Flushed with 10 mL NS. 22:10 CT Stone Protocol In Process Unspecified. EDMS 23:04 Dustin Snow MD is Hospitalizing Provider. rn 07/26 00:43 Patient admitted, IV remains in place. al5 Administered Medications: 07/25 21:46 Drug: morphine IVP or IV 4 mg IVP once over 4 mins Route: IVP; Infused Over: 4 mins; al5 Site: right antecubital; 22:02 Follow up: Response: No adverse reaction; Pain is decreased; Pain is decreased, but is al5 still experiencing pain 21:46 Drug: Ondansetron IVP 4 mg IVP once; over 2 minutes Route: IVP; Site: right antecubital;al5 21:51 Follow up: Response: No adverse reaction; Nausea is decreased al5 22:01 Drug: Rocephin IV 1 grams IV at calculated rate once; Given slow IV push per pharmacy al5 instructions Route: IV; Rate: calculated rate; Site: right antecubital; 07/26 00:44 Follow up: Response: No adverse reaction; IV Status: Completed infusion; IV Intake: [id number] 07/25 22:01 Drug: Acetaminophen PO 650 mg PO once Route: PO; al5 07/26 00:44 Follow up: Response: No adverse reaction; Pain is decreased al5 07/25 23:48 Drug: morphine IVP or IV 4 mg IVP once over 4 mins Route: IVP; Infused Over: 4 mins; jj7 Site: right antecubital; 07/26 00:56 Follow up: Response: No adverse reaction; Pain is unchanged, physician notified al5 00:56 Drug: levofloxacin IVPB 750 mg 150 ml IVPB once over 90 mins Volume: 150 ml; Route: al5 IVPB; Infused Over: 90 mins; Site: right antecubital; 02:17 Follow up: Response: No adverse reaction; IV Status: Infusion continued upon admission al5 00:56 Drug: Ketorolac IVP 30 mg IVP once Route: IVP; Site: right antecubital; al5 02:17 Follow up: Response: No adverse reaction; Pain is decreased al5 00:56 Drug: traMADol PO 50 mg PO once Route: PO; al5 02:17 Follow up: Response: No adverse reaction; Pain is decreased al5 Medication: 07/25 20:37 VIS not applicable for this client. al5 Intake: 07/26 00:44 IV: 50ml; Total: 50ml. al5 Outcome: 07/25 23:04 Decision to Hospitalize by Provider. rn 07/26 02:16 Patient left the ED. jb4 02:16 Admitted to Med/surg accompanied by tech, via wheelchair, room 408, with chart, Report al5 called to [place] 02:16 Condition: good 02:16 Instructed on the need for admit, Signatures: Dispatcher [employer] EDMS Jaswant Parra MD MD rn Bryson, James, RN RN jb4 Fior Webb [email or web address] Rosanne Sweeney RN RN jj7 Evaristo Gomes RN RN tm6 Angie Liu RN RN al5 Corrections: (The following items were deleted from the chart) 07/25 23:50 23:48 levofloxacin IVPB 750 mg 150 ml IVPB in right antecubital over 90 mins jj7 jj7 07/26 00:41 07/25 20:35 BP 179 / 86; Pulse 95bpm; Resp 22bpm; Pulse Ox 92% RA; al5 al5
--- NOTE | 2024-07-25 23:04 | EDPHYS ---
Physician Documentation [facility] Name: John Matos Age: 59 yrs Sex: Male : 1965 Arrival Date: 07/25/2024 Time: 20:17 Bed 2 Private MD: ED Physician Jaswant Parra HPI: 07/25 20:52 This 59 yrs old Male presents to ER via Ambulatory with complaints of Testicular rn Swelling. 20:52 The patient presents with scrotal pain, swelling, tenderness. Onset: The rn symptoms/episode began/occurred 3 day(s) ago. Modifying factors: The symptoms are alleviated by nothing, the symptoms are aggravated by pressure, urinating. Severity of symptoms: At their worst the symptoms were moderate, in the emergency department the symptoms are unchanged. The patient has not experienced similar symptoms in the past. Patient reports diagnosed with UTI, just put on Levaquin, first dose today, told to come to the emergency room room if swelling or symptoms worsen. Reports increased swelling to the right testicle with pain. Also reports hematuria. Has history of kidney stones but this feels completely different. No known prostate issues. Reports fever and chills. Takes Xarelto. Reports initial urine contains blood that clears with urination.. Historical: - Allergies: 20:33 No Known Allergies; tm6 - PMHx: 20:33 Asthma; Atrial fibrillation; Hypertensive disorder; tm6 - PSHx: 20:33 Ankle; Tonsillectomy; tm6 20:34 neck; tm6 - Immunization history:: Client reports receiving the 2nd dose of the Covid vaccine. - Infectious Disease History:: Denies. - Social history:: Smoking status: Patient denies any tobacco usage or history of. Patient/guardian denies using alcohol. - Family history:: not pertinent. - Hospitalizations: : No recent hospitalization is reported. ROS: 20:52 Constitutional: + fever and chills Cardiovascular: Negative for chest pain, rn palpitations, and edema, Respiratory: Negative for shortness of breath, cough, wheezing, and pleuritic chest pain, Abdomen/GI: Negative for abdominal pain, nausea, vomiting, diarrhea, and constipation, : Positive for testicular pain and swelling. Positive for hematuria MS/Extremity: Negative for injury and deformity, Exam: 20:52 Constitutional: This is a well developed, well nourished patient who is awake, alert, rn and in no acute distress. Cardiovascular: Regular rate and rhythm. No pulse deficits. Respiratory: Mild tachypnea. Abdomen/GI: Soft, mild suprapubic tenderness. Male : Moderate right testicular and scrotal swelling with thickened scrotal skin. Does not extend to the perineum. Right testicle tender especially on superior pole. No discoloration. No open wounds or drainage. No other skin discoloration noted. MS/ Extremity: Pulses equal, no cyanosis. Neuro: Awake and alert, GCS 15 Vital Signs: 20:31 BP 183 / 69; Pulse 91; Resp 25; Temp 100.1(O); Pulse Ox 97% on R/A; Weight 136.08 kg; tm6 Height 5 ft. 9 in. ; Pain 10/10; 20:35 BP 179 / 86; Pulse 95; Resp 22; Pulse Ox 92% on R/A; al5 21:00 BP 128 / 63; Pulse 91; Resp 24; Pulse Ox 92% on R/A; al5 21:30 BP 126 / 83; Pulse 90; Resp 21; Pulse Ox 92% on R/A; al5 22:00 BP 123 / 64; Pulse 87; Resp 20; Pulse Ox 91% on R/A; al5 22:30 BP 110 / 52; Pulse 72; Resp 19; Pulse Ox 90% on R/A; al5 23:00 BP 91 / 54; Pulse 88; Resp 19; Pulse Ox 90% on R/A; al5 23:30 BP 117 / 60; Pulse 93; Resp 21; Pulse Ox 90% on R/A; al5 07/26 00:00 BP 103 / 56; Pulse 78; Resp 20; Pulse Ox 91% on R/A; al5 07/25 20:31 Body Mass Index 44.30 (136.08 kg, 175.26 cm) tm6 07/25 20:31 Pain Scale: Adult tm6 07/25 20:35 hx of CHF al5 21:00 L lower arm al5 MDM: 20:31 Patient medically screened. rn 22:54 Differential diagnosis: UTI, prostatitis, urethritis, Epididymitis. rn 23:02 Data reviewed: vital signs, nurses notes, lab test result(s), radiologic studies, CT rn scan, and as a result, I will admit patient. Consideration of Admission/Observation Patient was admitted/placed on observation. Care significantly affected by the following chronic conditions: Hypertension. Counseling: I had a detailed discussion with the patient and/or guardian regarding the historical points, exam findings, and any diagnostic results supporting the discharge/admit diagnosis, lab results, radiology results, the need for further work-up and treatment in the hospital. ED course: Patient only 1 day of antibiotics but worsening swelling and pain not controlled, has had 2 doses of morphine here and still in pain, patient does not feel comfortable going home as he was instructed to come here for admission from urgent care if symptoms did not improve after his IM and p.o. dose of Levaquin.. 23:56 ED course: Contacted Dr. Snow for admission given pain not controlled and rn testicular swelling and pain rapidly progressive. Patient evaluated by Dr. Snow he does not want want to admit patient, request Toradol and tramadol given and trial of antibiotics at home. Patient upset, patient does not feel like his pain is under control, does not want to go home and is concerned about going home as well. Will repeat pain medication and reassess. If pain is not controlled will admit patient as originally planned.. 07/25 20:46 Order name: Blood Culture Adult (2) 07/25 20:46 Order name: CBC with Diff; Complete Time: 21:41 07/25 20:46 Order name: CMP; Complete Time: 22:18 07/25 20:46 Order name: Lactate w/ 2H reflex if indic.; Complete Time: 22:18 07/25 20:46 Order name: Protime (+inr); Complete Time: 21:41 07/25 20:46 Order name: Ptt, Activated; Complete Time: 21:41 07/25 20:46 Order name: Urinalysis w/ reflexes rn 07/26 00:47 Order name: CBC with Automated Diff EDMS 07/26 00:47 Order name: CBC with Automated Diff EDMS 07/26 00:47 Order name: Comprehensive Metabolic Panel EDMS 07/26 00:47 Order name: Comprehensive Metabolic Panel EDLA 07/25 20:46 Order name: US Scrotum Testicles; Complete Time: 22:40 07/25 20:46 Order name: CT Stone Protocol; Complete Time: 22:40 07/25 20:46 Order name: EKG; Complete Time: 20:46 rn 07/25 20:46 Order name: Accucheck; Complete Time: 21:48 rn 07/25 20:46 Order name: Cardiac monitoring; Complete Time: 21:48 rn 07/25 20:46 Order name: EKG - Nurse/Tech; Complete Time: 21:48 rn 07/25 20:46 Order name: IV Saline Lock - Large Bore; Complete Time: 21:15 rn 07/25 20:46 Order name: Labs collected and sent; Complete Time: 21:15 rn 07/25 20:46 Order name: O2 Per Protocol; Complete Time: 21:15 rn 07/25 20:46 Order name: O2 Sat Monitoring; Complete Time: 21:15 rn 07/25 20:46 Order name: Vital Signs; Complete Time: 21:15 rn Administered Medications: 21:46 Drug: morphine IVP or IV 4 mg IVP once over 4 mins Route: IVP; Infused Over: 4 mins; al5 Site: right antecubital; 22:02 Follow up: Response: No adverse reaction; Pain is decreased; Pain is decreased, but is al5 still experiencing pain 21:46 Drug: Ondansetron IVP 4 mg IVP once; over 2 minutes Route: IVP; Site: right antecubital;al5 21:51 Follow up: Response: No adverse reaction; Nausea is decreased al5 22:01 Drug: Rocephin IV 1 grams IV at calculated rate once; Given slow IV push per pharmacy al5 instructions Route: IV; Rate: calculated rate; Site: right antecubital; 07/26 00:44 Follow up: Response: No adverse reaction; IV Status: Completed infusion; IV Intake: [id number] 07/25 22:01 Drug: Acetaminophen PO 650 mg PO once Route: PO; al5 07/26 00:44 Follow up: Response: No adverse reaction; Pain is decreased al5 07/25 23:48 Drug: morphine IVP or IV 4 mg IVP once over 4 mins Route: IVP; Infused Over: 4 mins; [id number] Site: right antecubital; 07/26 00:56 Follow up: Response: No adverse reaction; Pain is unchanged, physician notified al5 00:56 Drug: levofloxacin IVPB 750 mg 150 ml IVPB once over 90 mins Volume: 150 ml; Route: al5 IVPB; Infused Over: 90 mins; Site: right antecubital; 02:17 Follow up: Response: No adverse reaction; IV Status: Infusion continued upon admission al5 00:56 Drug: Ketorolac IVP 30 mg IVP once Route: IVP; Site: right antecubital; al5 02:17 Follow up: Response: No adverse reaction; Pain is decreased al5 00:56 Drug: traMADol PO 50 mg PO once Route: PO; al5 02:17 Follow up: Response: No adverse reaction; Pain is decreased al5 Disposition Summary: 07/25/24 23:04 Hospitalization Ordered Notes: Hospitalization Status: Inpatient Admission rn Provider: Dustin Snow rn Location: Telemetry/MedSurg (Inpatient) rn Condition: Stable rn Problem: new rn Symptoms: have improved rn Bed/Room Type: Standard rn Room Assignment: 408(07/26/24 00:54) iw Diagnosis - Epididymo-orchitis rn - Acute cystitis rn Forms: - Medication Reconciliation Form rn - SBAR form rn - Leadership Thank You Letter rn Signatures: Dispatcher [employer] Jeannie Briscoe RN RN Jaswant Reeder MD MD rn Johnson, Juwairiyah RN RN [id number] Evaristo Gomes RN RN tm6 Angie Liu RN RN al5 Corrections: (The following items were deleted from the chart) 00:54 [id number] 23:04 rn elizabeth
[2024-07-25] MEDS ORDERED: Levofloxacin 750mg IV 750 MG/150 ML BAG IV ONE (23:39)
--- NOTE | 2024-07-26 00:39 | P.HP ---
Certification for Inpatient Patient admitted to: Observation With expected LOS: <2 Midnights Patient will require the following post-hospital care: None Practitioner: I am a practitioner with admitting privileges, knowledge of patient current condition, hospital course, and medical plan of care. Services: Services provided to patient in accordance with Admission requirements found in Title 42 Section 412.3 of the Code of Federal Regulations Patient History Date of Service: 07/26/24 Reason for admission: Scrotal pain and swelling History of Present Illness: 59-year-old male with past medical history of hypertension, afebrile, asthma who developed scrotal pain and swelling since the last 2 days. Patient states symptoms worse with movement. He was seen at urgent care clinic today and diagnosed with UTI with scrotal cellulitis. He received IM pain medication as well as an IM antibioticsboth patient and unsure of the name of the IM antibiotics, he was sent home on p.o. Levaquin but no pain medication. He states he took the p.o. Levaquin on getting home but his pain and redness continued to worsen he presented to the ED because of worsening pain today. He denies any nausea vomiting. He was due to take another dose of Levaquin today which she has not taken. Arrival in the ED vital signs were stable with mild elevated blood pressure initially temp was 100.1, WBC was mildly elevated at 13.9, BMP was unremarkable. CT of the abdomen and pelvics shows evidence of- Asymmetric swelling/enlargement along the right aspect of the seminal vesicle. Mild pericystic fat stranding. Findings suggest an infectious or inflammatory genitourinary process. Scrotal ultrasound shows finding consistent with epididymoorchitis. His blood pressure improved with pain medication. Patient was initially evaluated by me and recommended to be discharged with continue Levaquin as well as a p.o. pain medication. However patient became adamant and insisting on staying in the hospital for pain control. Allergies No Known Allergies Allergy (Unverified 10/17/22 08:48) Home Medications: Albuterol Inhaler [Ventolin Inhaler*] 2 puff IH Q6H PRN 10/17/22 Anastrozole 2 tab PO SEECOM 10/17/22 Cetirizine HCl 10 mg PO DAILY 10/17/22 Furosemide 40 mg PO DAILY 10/17/22 Gabapentin 300 mg PO TID PRN 10/17/22 Olmesartan/Hydrochlorothiazide [Olmesartan-Hctz 40-12.5 mg Tab] 1 each PO DAILY 10/17/22 Ondansetron [Ondansetron Odt] 4 mg PO Q6H PRN 10/17/22 Potassium Chloride 20 meq PO DAILY 10/17/22 Semaglutide [Ozempic] 0.5 mg SQ SEECOM 10/17/22 Sildenafil Citrate [Viagra] 100 mg PO DAILY 10/17/22 Trazodone [Desyrel*] 50 mg PO BEDTIME PRN 10/17/22 Hydrocodone 7.5/APAP 325 [[place] 7.5/325 mg] 1 tab PO Q6H PRN #20 tab 10/18/22 Meloxicam 7.5 mg PO BID #14 tab 10/18/22 Metoprolol Tartrate [Lopressor*] 12.5 mg PO BID 6AM 6PM #30 tab 10/18/22 Rivaroxaban [Xarelto] 15 mg PO DAILY #30 tablet 10/18/22 - Past Medical/Surgical History -: HTN -: Obesity -: Asthma -: Neck surgery -: Ankle surgery -: Tonsillectomy - Family History Brother -: Diabetes Father -: Heart disease, Diabetes - Social History Smoking Status: Never smoker Alcohol use: No CD- Drugs: No Caffeine use: Yes Place of Residence: Home Review of Systems Genitourinary: Other (Scrotal pain as well) Physical Examination - Physical Exam General: Alert, In no apparent distress, Oriented x3, Cooperative, Obese HEENT: Atraumatic, Normocephalic, PERRLA Neck: Supple, 2+ carotid pulse no bruit, JVD not distended Respiratory: Clear to auscultation bilaterally, Normal air movement Cardiovascular: No edema, Regular rate/rhythm, Normal S1 S2 Gastrointestinal: Normal bowel sounds, Soft and benign, Non-distended, No ascites, No tenderness Integumentary: Other (Erythema with tenderness of scrotal wall, normal external penile orifice) Neurological: Normal speech, Normal strength at 5/5 x4 extr, Sensation intact, Cranial nerves 3-12 intact - Studies Laboratory Data (last 24 hrs) 07/25/24 07/25/24 07/25/24 21:11 21:11 21:11 WBC 13.90 H Hgb 15.7 Hct 50.1 H Plt Count 196 PT 16.6 H INR 1.50 APTT 38.2 H Sodium 138 Potassium 4.1 BUN 17 Creatinine 0.98 Glucose 143 H Total Bilirubin 0.5 AST 12 L ALT 27 Alkaline Phosphatase 71 Assessment and Plan - Problems (Diagnosis) (1) Cellulitis of scrotum Current Visit: Yes Status: Acute (2) UTI (urinary tract infection) Current Visit: Yes Status: Acute - Plan Impression Acute scrotal cellulitis UTI Hypertension History of A-fib Plan Admit to observation Pain control with IV morphine Will switch to Toradol/[place] Continue Levaquin since known failure of oral antibiotics as patient only received 1 dose outpatient Gentle IV fluid Monitor WBC trend Resume home medications Given obesity, subcutaneous Lovenox for DVT prophylaxis Full code Disposition possible discharge in a.m. Discharge Plan: Home - Advance Directives Does patient have a Living Will: No Does patient have a Durable POA for Healthcare: No - Code Status/Comfort Care Code Status: Full Code Time Spent Managing Pts Care (In Minutes): 65
[2024-07-26] MEDS ORDERED: ACETAMINOPHEN 500 MG TAB PO PRN (00:40)
[2024-07-26] MEDS ORDERED: MORPHINE 2 MG/ML SYR IV PRN (00:40)
[2024-07-26] MEDS ORDERED: ALBUTEROL 2.5 MG/3 ML NEB SOL NEB PRN (00:40)
[2024-07-26] MEDS ORDERED: Oxycodone HCl/Acetaminophen 5/325 MG TAB PO PRN (00:43)
[2024-07-26] MEDS ORDERED: TRAMADOL HCL 50 MG TAB ONE (00:48)
[2024-07-26] MEDS ORDERED: KETOROLAC 30 MG/ML INJ ONE (00:48)
[2024-07-26] MEDS: NA CHLORIDE 0.9% 1,000 ML IV SCH (02:39)
[2024-07-26] MEDS: ONDANSETRON 4 MG/2 ML VIAL IV PRN ×2 (02:48→10:54)
[2024-07-26 03:30] VITALS: BMI 44.3
[2024-07-26] MEDS: Oxycodone HCl/Acetaminophen 5/325 MG TAB PO PRN (07:15)
[2024-07-26] MEDS: KETOROLAC 30 MG/ML INJ IV PRN (09:25)
[2024-07-26] MEDS: levoFLOXacin 750 MG TAB PO SCH (09:26)
[2024-07-26] MEDS: ENOXAPARIN 40 MG/0.4 ML SQ SCH (09:26)
[2024-07-26] MEDS: HYDROMORPHONE HCL 0.5 MG/0.5 ML INJ IV ONE (10:53)
[2024-07-26] MEDS: HYDROMORPHONE HCL 2 MG/ML inj IV ONE (11:00)
[2024-07-26 11:18] LABS: Absolute Eosinophils 0.1 K/uL (0-0.5); Absolute Lymphocytes (CBC) 1.1 K/uL (0.7-4.9); Absolute Monocytes 1.2 K/uL (0.1-1.3); Basophils % 0.3 % (0-1.3); Eosinophils % 0.8 % (0-4.4); Hematocrit 48.5 % (39.6-49.0); Hemoglobin 15.4 g/dL (13.6-17.9); Lymphocytes % 7.3 % (15.3-44.8); MCHC 31.7 g/dL (32.0-36.0); MCV 82.1 fL (80-100); MPV 7.6 fL (7.6-11.3); Monocytes % 8.1 % (3.3-12.3); Neutrophils % 83.5 % (41.7-73.7); Platelets 182 thou/uL (152-406); RBC Red Blood Cell Count 5.91 M/uL (4.33-5.43); Red Cell Distribution Width 20.7 % (12.1-15.2)
[2024-07-26 11:31] LABS: Anion Gap 8.4 mEq/L (5.0-15.0); Potassium 4.4 mEq/L (3.5-5.1)
[2024-07-26 11:53] LABS: Toxic Granulation 1+; White Blood Cell Scan OK (OK)
[2024-07-26 11:54] LABS: Anisocytosis 1+; Blood Morphology Comment NOTED (NOT SEEN); Platelet Estimate ADEQ
[2024-07-26] MEDS: DOXYCYCLINE 100 MG in NA CHLORIDE 0.9% 100 ML IVPB SCH (11:55)
[2024-07-26 14:58] LABS: Specific Gravity > 1.030 (1.005-1.030); Sqamous Epithelial <5 /HPF (None Seen); Urine Bacteria <20 /HPF (<20); Urine Bilirubin NEGATIVE (Negative); Urine Blood 2+ (Negative); Urine Clarity Extremely Turbid (Clear); Urine Color Yellow (Yellow); Urine Culture Reflex Order REFLEXED; Urine Glucose NEGATIVE (Negative); Urine Ketones NEGATIVE (Negative); Urine Microscopic Reflex YN ORDER UMIC; Urine Mucus 4+ /HPF (None Seen); Urine Nitrite NEGATIVE (Negative); Urine Protein 1+ (Negative); Urine RBC >50 /HPF (None Seen); Urine Urobilinogen Normal (Normal); Urine WBC >50 /HPF (<5)
[2024-07-26] MEDS: HYDROMORPHONE HCL 0.5 MG/0.5 ML INJ IV PRN (15:39)
[2024-07-26] MEDS: HYDROCODONE/APAP 7.5/325 MG TAB PO PRN (16:37)
[2024-07-26] MEDS: AMPICILLIN/SULBACT 3 GM in NA CHLORIDE 0.9% 100 ML IV SCH (16:41)
[2024-07-26] MEDS ORDERED: ALBUTEROL IH PRN (17:23)
[2024-07-26] MEDS ORDERED: [UNRECOGNIZED DRUG - OTHER] IH PRN (17:23)
[2024-07-26] MEDS: Meropenem 1,000 MG in NA CHLORIDE 0.9% 100 ML IV SCH (17:32)
[2024-07-26] MEDS: dexAMETHasone 4 MG/ML VIAL IV ONE (17:32)
--- NOTE | 2024-07-26 17:53 | P.PN ---
Date of Service: 07/26/24 Presented after midnight, has bilateral testicular pain, swelling, imaging shows acute infectious or inflammatory epididymo-orchitis.Trace right hydrocele. He was treated with IV antibiotics, IV, p.o. pain analgesics, ice to bilateral testicles, not directly on skin. No testicular torsion noted. Patient will need to follow-up with urology after discharge. Will keep inpatient at this time for intractable pain, IV antibiotics. Urine GC ordered abdominal CT IMPRESSION: Asymmetric swelling/enlargement along the right aspect of the seminal vesicle. Mild pericystic fat stranding. Findings suggest an infectious or inflammatory genitourinary process, scrotal ultrasound IMPRESSION: Enlargement and increased vascularity of the right epididymis especially at the body and tail. Mildly increased vascularity throughout the right testicular parenchyma. Findings suggest acute infectious or inflammatory epididymo-orchitis.Trace right hydrocele. Incidentally noted small epididymal head cysts largest measuring 5 mm, benign in appearance. <Padmaja Henderson - Last Filed: 07/26/24 17:48> patient seen and examined. Patient continued to have a significant amount of pain. Broadened antibiotic coverage with meropenem and vancomycin. Add an anti-inflammatory. Repeat imaging over the next 48-72 hours to make sure resolution. <William Sanderson - Last Filed: 07/27/24 07:29>
[2024-07-26] MEDS: TAMSULOSIN 0.4 MG SR CAP PO SCH (18:00)
[2024-07-26] MEDS: MELOXICAM 7.5 MG TAB PO SCH (19:34)
[2024-07-26] MEDS: TRAZODONE 50 MG TABLET PO PRN (21:55)
[2024-07-27] MEDS: LORAZEPAM 1 MG TABLET PO ONE ×2 (00:27→23:16)
[2024-07-27] MEDS: PANTOPRAZOLE 40MG TABLET PO SCH (05:00)
[2024-07-27 06:20] LABS: Albumin 2.9 g/dL (3.4-5.0); Albumin/Globulin Ratio 0.7 (1.1-1.8); Bilirubin Total 0.6 mg/dL (0.2-1.0); Globulin 4.3 g/dL (2.3-3.5); Protein, Total 7.2 g/dL (6.4-8.2)
[2024-07-27 06:21] LABS: Absolute Neutrophil 14.2 K/uL (1.8-8.0); Basophils % 0.3 % (0-1.3); Eosinophils % 0.1 % (0-4.4); Hematocrit 47.9 % (39.6-49.0); Hemoglobin 15.5 g/dL (13.6-17.9); MCH 26.2 pg (27.0-35.0); MCHC 32.2 g/dL (32.0-36.0); MCV 81.3 fL (80-100); MPV 7.4 fL (7.6-11.3); Monocytes % 6.3 % (3.3-12.3); Neutrophils % 87.3 % (41.7-73.7); Platelets 202 thou/uL (152-406); Red Cell Distribution Width 19.7 % (12.1-15.2)
[2024-07-27] MEDS: VILANTEROL IH SCH (09:00)
[2024-07-27] MEDS: FLUTICASONE IH SCH (09:00)
[2024-07-27] MEDS: allopurinoL 300 MG TAB PO SCH (09:00)
[2024-07-27] MEDS ORDERED: HOME MED 1 EA UNK (Cetirizine Hcl [Zyrtec] 10 MG Capsule) PO SCH (09:00)
[2024-07-27 09:17] LABS: Anisocytosis 1+; Blood Morphology Comment NOTED (NOT SEEN); Platelet Estimate ADEQ; White Blood Cell Scan OK (OK)
[2024-07-27] MEDS: RIVAROXABAN 20 MG TABLET PO SCH (10:08)
[2024-07-27] MEDS: METOPROLOL XL 25 MG TAB PO SCH (10:09)
[2024-07-27] MEDS: ONDANSETRON 4 MG (ODT) TAB PO SCH (10:09)
[2024-07-27] MEDS ORDERED: ALBUTEROL 2.5 MG/3 ML NEB SOL NEB PRN (11:17)
[2024-07-27] MEDS ORDERED: ALBUTEROL INHALER 200 PUFF/6.7 GM IH PRN (11:22)
--- NOTE | 2024-07-27 11:39 | P.PN ---
Subjective Date of Service: 07/27/24 Chief Complaint: Scrotal pain and swelling Pt is resting comfortably in bed. He complains of scrotal pain and swelling. He is getting iv vanc and merrem. Scrotal ultrasound shows acute infectious or inflammatory epididymo-orchitis. No acute event overnight. Review of Systems General: Unremarkable Eyes: Unremarkable ENT: Unremarkable Respiratory: Unremarkable Cardiovascular: Unremarkable Gastrointestinal: Unremarkable Genitourinary: Unremarkable Musculoskeletal: Unremarkable Integumentary: Lesions (scrotal erythema and swelling) Neurological: Unremarkable Lymphatics: Unremarkable Physical Examination - Vital Signs Temperature: 97 F Blood Pressure: 175/88 Pulse: 68 Respirations: 14 Pulse Ox (%): 93 - Physical Exam General: Alert, In no apparent distress, Oriented x3, Obese HEENT: Atraumatic, Normocephalic, PERRLA Neck: Supple, 2+ carotid pulse no bruit, JVD not distended Respiratory: Clear to auscultation bilaterally, Normal air movement Cardiovascular: No edema, Normal pulses, Regular rate/rhythm, Normal S1 S2 Capillary refill: <2 Seconds Gastrointestinal: Normal bowel sounds, Soft and benign, Non-distended Musculoskeletal: No clubbing, No swelling, No contractures Integumentary: No rashes, No breakdown, No significant lesion, No tenderness/swelling Neurological: Normal gait, Normal speech, Normal strength at 5/5 x4 extr, Normal tone Lymphatics: No axilla or inguinal lymphadenopathy External genitalia: Other (scrotal swelling and erythema) Assessment And Plan - Plan Acute scrotal cellulitis: Will continue iv vanc and merrem. Scrotal ultrasound shows suggest acute infectious or inflammatory epididymo-orchitis. Will f/u blood cx. Continue to apply ice pack around groin area and continue norco. UTI: Will continue iv abx and f/u urine cx. Hypertension: Continue home med History of A-fib: Continue DVT ppx: Lovenox Code: Full code Dispo: Pending hospital course.
[2024-07-27] MEDS ORDERED: GUAIFENESIN 600 MG SA TAB PO PRN (12:22)
[2024-07-27] MEDS: VANCOMYCIN 2 GM in NA CHLORIDE 0.9% 500 ML IVPB SCH (12:30)
[2024-07-27] MEDS: KETOROLAC 30 MG/ML INJ IV PRN (12:30)
[2024-07-27] MEDS: CETIRIZINE HCL 5 MG TABLET PO SCH (12:30)
[2024-07-27] MEDS: VALSARTAN 160 MG TAB PO ONE (12:55)
--- NOTE | 2024-07-27 17:02 | EKG ---
Test Date: 2024-07-25 Test Time: 21:42:42 Java Front End Web Developer: GAVIN MEASUREMENT RESULTS: Intervals: Rate: 90 NH: 180 QRSD: 68 QT: 304 QTc: 371 [place]: P: 71 NH: 180 QRS: -60 T: 21 INTERPRETIVE STATEMENTS: Normal sinus rhythm Left axis deviation Low voltage QRS Inferior infarct, age undetermined Cannot rule out Anterior infarct, age undetermined Abnormal ECG Compared to ECG 10/17/2022 12:52:16 Left-axis deviation now present First degree AV block no longer present Myocardial infarct finding still present Electronically Signed On 07-27-24 16:58:59 CDT by Jaylon Perez
[2024-07-27] MEDS: HYDRALAZINE HCL 20 MG/ML VIAL IV PRN (18:41)
[2024-07-27] MEDS: HYDROMORPHONE HCL 0.5 MG/0.5 ML INJ IV ONE (19:08)
[2024-07-27] MEDS: HYDROMORPHONE HCL 1 MG/ML INJ IV PRN (23:16)
[2024-07-27 23:37] VITALS: O2SAT 94
[2024-07-28 06:55] LABS: Absolute Basophils 0.1 K/uL (0-0.5); Absolute Eosinophils 0.2 K/uL (0-0.5); Absolute Lymphocytes (CBC) 1.4 K/uL (0.7-4.9); Absolute Monocytes 0.7 K/uL (0.1-1.3); Absolute Neutrophil 9.6 K/uL (1.8-8.0); Basophils % 1.1 % (0-1.3); Eosinophils % 1.4 % (0-4.4); Hematocrit 51.3 % (39.6-49.0); Hemoglobin 16.5 g/dL (13.6-17.9); Lymphocytes % 11.7 % (15.3-44.8); MCH 26.2 pg (27.0-35.0); MCHC 32.1 g/dL (32.0-36.0); MCV 81.7 fL (80-100); MPV 8.1 fL (7.6-11.3); Monocytes % 5.8 % (3.3-12.3); Platelets 235 thou/uL (152-406); RBC Red Blood Cell Count 6.29 M/uL (4.33-5.43); Red Cell Distribution Width 20.1 % (12.1-15.2)
[2024-07-28 07:12] LABS: Albumin 3.1 g/dL (3.4-5.0); Albumin/Globulin Ratio 0.7 (1.1-1.8); Anion Gap 10.3 mEq/L (5.0-15.0); Bilirubin Total 0.5 mg/dL (0.2-1.0); Globulin 4.3 g/dL (2.3-3.5); Potassium 4.3 mEq/L (3.5-5.1); Protein, Total 7.4 g/dL (6.4-8.2)
--- NOTE | 2024-07-28 10:17 | P.PN ---
Subjective Date of Service: 07/28/24 Chief Complaint: Scrotal pain and swelling Pt is resting comfortably in bed. He complains of scrotal pain and swelling. He is getting iv vanc and merrem. Scrotal ultrasound shows acute infectious or inflammatory epididymo-orchitis. [facility]by a urologist. No acute event overnight. Review of Systems General: Unremarkable Eyes: Unremarkable ENT: Unremarkable Respiratory: Unremarkable Cardiovascular: Unremarkable Gastrointestinal: Unremarkable Genitourinary: Dysuria, Other (scrotal swelling) Musculoskeletal: Unremarkable Integumentary: Unremarkable Neurological: Unremarkable Lymphatics: Unremarkable Physical Examination - Vital Signs Temperature: 97.5 F Blood Pressure: 190/85 Pulse: 73 Respirations: 16 Pulse Ox (%): 94 - Physical Exam General: Alert, In no apparent distress, Oriented x3, Obese HEENT: Atraumatic, Normocephalic, PERRLA Neck: Supple, 2+ carotid pulse no bruit, JVD not distended Respiratory: Clear to auscultation bilaterally, Normal air movement Cardiovascular: No edema, Normal pulses, Regular rate/rhythm, Normal S1 S2 Capillary refill: <2 Seconds Gastrointestinal: Normal bowel sounds, Soft and benign, Non-distended Musculoskeletal: No clubbing, No swelling, No contractures Integumentary: No rashes, No breakdown, No significant lesion Neurological: Normal gait, Normal speech, Normal strength at 5/5 x4 extr Lymphatics: No axilla or inguinal lymphadenopathy Assessment And Plan - Plan Acute scrotal cellulitis: Will continue iv vanc and merrem. Scrotal ultrasound shows suggest acute infectious or inflammatory epididymo-orchitis. Will f/u blood cx. Continue to apply ice pack around groin area and continue dilaudid 1mg q4h prn, toradol, and norco. UTI: Will continue iv abx and f/u urine cx. Hypertension: Continue metoprolol, valsartan and prn iv hydralazine History of A-fib: Continue Morbid obesity: Pt was advised tolose weight. DVT ppx: Lovenox Code: Full code Dispo: Pending hospital course. Will transfer pt to [facility] for evaluation by a Urologist.
[2024-07-28] MEDS: VALSARTAN 160 MG TAB PO SCH (10:35)
[2024-07-28] MEDS: FUROSEMIDE 20 MG TABLET PO SCH (10:35)
[2024-07-28] MEDS: LORAZEPAM 1 MG TABLET PO ONE (22:04)
[2024-07-28] MEDS: AMLODIPINE 10 MG TAB PO SCH (22:04)
[2024-07-29 07:03] LABS: Absolute Basophils 0.1 K/uL (0-0.5); Absolute Eosinophils 0.2 K/uL (0-0.5); Absolute Lymphocytes (CBC) 1.1 K/uL (0.7-4.9); Absolute Monocytes 0.7 K/uL (0.1-1.3); Absolute Neutrophil 9.9 K/uL (1.8-8.0); Basophils % 0.7 % (0-1.3); Eosinophils % 1.9 % (0-4.4); Hematocrit 49.6 % (39.6-49.0); Hemoglobin 15.9 g/dL (13.6-17.9); Lymphocytes % 9.4 % (15.3-44.8); MCH 25.8 pg (27.0-35.0); MCHC 32.1 g/dL (32.0-36.0); MCV 80.2 fL (80-100); MPV 7.4 fL (7.6-11.3); Monocytes % 5.9 % (3.3-12.3); Neutrophils % 82.1 % (41.7-73.7); Platelets 251 thou/uL (152-406); RBC Red Blood Cell Count 6.18 M/uL (4.33-5.43); Red Cell Distribution Width 19.9 % (12.1-15.2)
[2024-07-29 07:24] LABS: Albumin 2.9 g/dL (3.4-5.0); Albumin/Globulin Ratio 0.7 (1.1-1.8); Anion Gap 11.2 mEq/L (5.0-15.0); Bilirubin Total 0.6 mg/dL (0.2-1.0); Globulin 4.3 g/dL (2.3-3.5); Potassium 4.2 mEq/L (3.5-5.1); Protein, Total 7.2 g/dL (6.4-8.2)
[2024-07-29] MEDS: VANCOMYCIN 1.75 GM in NA CHLORIDE 0.9% 500 ML IVPB SCH (10:41)
--- NOTE | 2024-07-29 13:12 | P.DS ---
Admission Date: 07/27/24 Discharge Date: 07/29/24 Disposition: ROUTINE DISCHARGE Discharge Condition: FAIR Reason for Admission: Scrotal pain and swelling Brief History of Present Illness: 59-year-old male with past medical history of hypertension, afebrile, asthma who developed scrotal pain and swelling since the last 2 days. Patient states symptoms worse with movement. He was seen at urgent care clinic today and diagnosed with UTI with scrotal cellulitis. He received IM pain medication as well as an IM antibioticsboth patient and unsure of the name of the IM antibiotics, he was sent home on p.o. Levaquin but no pain medication. He states he took the p.o. Levaquin on getting home but his pain and redness continued to worsen he presented to the ED because of worsening pain today. He denies any nausea vomiting. He was due to take another dose of Levaquin today which she has not taken. Arrival in the ED vital signs were stable with mild elevated blood pressure initially temp was 100.1, WBC was mildly elevated at 13.9, BMP was unremarkable. CT of the abdomen and pelvics shows evidence of- Asymmetric swelling/enlargement along the right aspect of the seminal vesicle. Mild pericystic fat stranding. Findings suggest an infectious or inflammatory genitourinary process. Scrotal ultrasound shows finding consistent with epididymoorchitis. His blood pressure improved with pain medication. Patient was initially evaluated by me and recommended to be discharged with continue Levaquin as well as a p.o. pain medication. However patient became adamant and insisting on staying in the hospital for pain control. Hospital Course: Pt is a 59yo male with past medicalhistory of hypertension and asthma who developed scrotal pain and swelling for 2 days. The symptoms progressively wor sened with movement and pt went to an urgent care clinic where he was diagnosed with UTI and scrotal cellulitis. The gave him IM abx and discharged him with levaquin but the symptom progressively worsened and pt came to the ER for evaluation. On admission, Lab studies show wbc 13.9, BMP was unremarkable. CT of the abdomen and pelvics showed evidence of- Asymmetric swelling/enlargement along the right aspect of the seminal vesicle. Mild pericystic fat stranding. Findings suggest an infectious or inflammatory genitourinary process. Scrotal ultrasound showed finding consistent with epididymoorchitis. We admitted pt sepsis 2/2 scrotal cellulitis and gave iv vanc and merrem. We also gave prn dilaudid and norco for pain control. His blood pressure improved with pain medication and optimization of BP regimen. We recommended transfer tto another facility with Urology service but pt and his declined the offer. They requested to be discharged with oral antibiotics and they will follow up with their Urologist. We continued home meds for other chronic medical problems. Pt was in NAD prior to discharge. He was advised to come back to the ER if there is fever or worsening of the scrotal pain. Vital Signs/Physical Exam: Temp Pulse Resp BP Pulse Ox 97.4 F 76 18 191/93 H 91 07/29/24 07:47 07/29/24 08:02 07/29/24 07:50 07/29/24 08:02 07/29/24 07:50 Laboratory Data at Discharge: WBC 12.10 thou/uL (4.3-10.9) H 07/29/24 06:19 Hgb 15.9 g/dL (13.6-17.9) 07/29/24 06:19 Hct 49.6 % (39.6-49.0) H 07/29/24 06:19 Plt Count 251 thou/uL (152-406) 07/29/24 06:19 PT 16.6 SECONDS (9.4-12.5) H 07/25/24 21:11 INR 1.50 07/25/24 21:11 APTT 38.2 SECONDS (24.3-36.9) H 07/25/24 21:11 Sodium 136 mEq/L (136-145) 07/29/24 06:19 Potassium 4.2 mEq/L (3.5-5.1) 07/29/24 06:19 BUN 16 mg/dL (7-18) 07/29/24 06:19 Creatinine 0.74 mg/dL (0.70-1.30) 07/29/24 06:19 Glucose 102 mg/dL (74-106) 07/29/24 06:19 Total Bilirubin 0.6 mg/dL (0.2-1.0) 07/29/24 06:19 AST 14 U/L (15-37) L 07/29/24 06:19 ALT 25 U/L (16-61) 07/29/24 06:19 Alkaline Phosphatase 67 U/L (45-117) 07/29/24 06:19 Home Medications: Anastrozole 1 tab PO EVERY 7TH DAY 10/17/22 Furosemide 20 mg PO DAILY 10/17/22 Ondansetron [Ondansetron Odt] 4 mg PO DAILY 10/17/22 Potassium Chloride 10 meq PO BID 10/17/22 Sildenafil Citrate [Viagra] 25 mg PO PRN PRN 10/17/22 Trazodone [Desyrel*] 50 mg PO BEDTIME PRN 10/17/22 Albuterol Inhaler [Ventolin Inhaler*] 1 puff IH PRN PRN 07/26/24 Albuterol Sulfate 1.25 mg IH Q6HR PRN 07/26/24 Allopurinol 300 mg PO DAILY 07/26/24 Cetirizine HCl [Zyrtec] 10 mg PO DAILY 07/26/24 Fluticasone/Vilanterol [Breo Ellipta 100-25 Mcg Inhalr] 1 puff IH DAILY 07/26/24 Guaifenesin [Mucinex] 600 mg PO DAILY PRN 07/26/24 Meloxicam 1 tab PO BID 07/26/24 Metoprolol Succinate 25 mg PO DAILY 07/26/24 Montelukast [Singulair*] 10 mg PO DAILY 07/26/24 Omeprazole Magnesium [Prilosec Otc] 20 mg PO DAILY 07/26/24 Rivaroxaban [Xarelto*] 20 mg PO DAILY 07/26/24 Semaglutide [Ozempic] 2 mg SQ EVERY 7TH DAY 07/26/24 Tamsulosin [Flomax*] 0.4 mg PO DAILY 07/26/24 Telmisartan 80 mg PO DAILY 07/26/24 Amlodipine [Norvasc*] 10 mg PO DAILY 30 Days #30 tab 07/29/24 Amox/Clavulanate [Augmentin 875-125 Tab*] 875 mg PO BIDWM 12 Days #24 tab 07/29/24 Smz./Tmp. [Bactrim Ds 800 MG/160 MG*] 1 tab PO BIDWM 12 Days #24 tab 07/29/24 New Medications: Amox/Clavulanate [Augmentin 875-125 Tab*] 875 mg PO BIDWM 12 Days #24 tab Smz./Tmp. [Bactrim Ds 800 MG/160 MG*] 1 tab PO BIDWM 12 Days #24 tab Amlodipine [Norvasc*] 10 mg PO DAILY 30 Days #30 tab Physician Discharge Instructions: Continue ad ubaldo activity. Take Augmentin 875/125mg po BID and Bactrim DS po BID for the next 12 days. Follow up with a Urologist as soon as possible. Come back to the ER if the pain gets worse or you notice fever at home. Diet: AHA Activity: Ad ubaldo Followup: Sulaiman Soto MD [Primary Care Provider] -
[2024-07-29 15:15] VITALS: BP 157/83; TEMP 98.2
[2024-07-29] MEDS ORDERED: SMZ./TMP. 800/160 MG TABLET PO SCH (17:00)
[2024-07-29] MEDS ORDERED: AMOX/K CLAV 875 MG TAB PO SCH (17:00)
[2024-07-29 17:38] LABS: C.trachomatis RNA,TMA Not Detected (Not Detected); N.gonorrhoeae RNA,TMA Not Detected (Not Detected)
[2024-08-02] MEDS ORDERED: ANASTROZOLE 1 MG TAB PO SCH (09:00)
== END 2024-07-29 15:17 | disposition home or self-care (01) | DRG 872 ==
LOC: ER 20:17 → ERHOLD 07-26 00:40 → 4TH 07-26 01:21 → OBSVTOIN 07-27 13:47
PROVIDERS: ADMIT Internal Medicine; ATTEND Hospitalist
DX: A41.9 Sepsis, unspecified organism (principal); N30.01 Acute cystitis with hematuria; Z68.41 Body mass index [BMI] 40.0-44.9, adult; N45.3 Epididymo-orchitis; E66.01 Morbid (severe) obesity due to excess calories; I48.91 Unspecified atrial fibrillation; I10 Essential (primary) hypertension; Z79.01 Long term (current) use of anticoagulants; Z79.899 Other long term (current) drug therapy
CPT/HCPCS: 36415; 74176; 76377; 76870; 80048; 80053; 80202; 81001; 83036; 83605; 84145; 85025; 85610; 85730; 87040; 87086; 87088; 87490; 87590; 93005; 96365; 96366; 96367; 96375; 99285; G0378; J0295; J0360; J0696; J1100; J1170; J1650; J2185; J2405; J7030; J7040; Q0162